=== PATIENT | female | born 1950 | race Caucasian/White ===

== ENCOUNTER 2020-05-30 15:57 | Outpatient (REF) | payer MEDICARE, SELFPAY ==
--- NOTE | 2020-05-30 | XR_ITS ---
EXAMINATION: XR FOOT, RIGHT CLINICAL INFORMATION: Pain in right foot COMPARISON: None TECHNIQUE: AP, lateral, and oblique views of the right foot. FINDINGS: No fracture or dislocation seen. Small plantar calcaneal osteophyte is present. 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 There is mild irregularity of the medial first metatarsal head with overlying soft tissue prominence but no hallux valgus is seen. Normal tarsal metatarsal alignment. XR/XR foot RT 2V IMPRESSION: No acute osseous abnormality. Small plantar calcaneal osteophyte is present. Degenerative changes as described above.
== END 2020-05-30 15:58 | disposition home or self-care (01) ==
LOC: HO.XRAY 15:57
PROVIDERS: Visit Provider Pediatrics
DX: M79.671 Pain in right foot (principal)
CPT/HCPCS: 73620

== ENCOUNTER 2020-08-21 11:19 | Outpatient (REF) | payer MEDICARE, SELFPAY ==
--- NOTE | 2020-08-21 11:22 | CT_ITS ---
EXAMINATION: CT HEAD WITHOUT CONTRAST CLINICAL INFORMATION: Migraine. COMPARISON: None TECHNIQUE: Contiguous axial imaging was performed from the skull base to vertex without intravenous administration of contrast. This CT examination was performed using dose optimization techniques as appropriate, variously including the following: *Automated exposure control *Adjustment of mA and/or kV according to patient size (this includes techniques or standardized protocols for targeted exams where dose is matched to indication/reason for exam; i.e. extremities or head) *Use of iterative reconstruction technique DLP: 683 mGy-cm FINDINGS: There is no evidence of acute intracranial hemorrhage or territorial infarction. No abnormal mass effect or midline shift is seen. Zayas to white matter differentiation is well preserved. No extra-axial fluid collections are identified. The ventricles are normal in size. There is no abnormal attenuation within the brain parenchyma. The osseous structures and soft tissues are normal. The mastoid air cells and visualized portions of the paranasal sinuses are well aerated. CT/CT head/brain wo con IMPRESSION: No acute intracranial process seen.
== END 2020-08-21 11:20 | disposition home or self-care (01) ==
LOC: HO.CT 11:19
PROVIDERS: PCP Pediatrics; Visit Provider Pediatrics
DX: G43.011 Migraine without aura, intractable, with status migrainosus (principal)
CPT/HCPCS: 70450

== ENCOUNTER 2020-10-06 11:33 | Outpatient (REF) | payer MEDICARE, SELFPAY ==
--- NOTE | ~2020-10-06 | XR_ITS ---
EXAMINATION: XR CERVICAL SPINE CLINICAL INFORMATION: Neck pain. COMPARISON: None TECHNIQUE: Six views of the cervical spine, inclusive of flexion and extension views, were obtained. FINDINGS: There is normal cervical lordosis. The vertebral heights and alignment are normal. There is loss of C5-C6 and C6-C7 disc heights with ventral spondylosis. On oblique views, the neural foramina are mildly narrowed bilaterally at C4-C5 and C5-C6 disc levels slightly greater on the left side. There is moderate facet joint arthropathy on the right at C3-C4 and left C4-C5 disc levels. No lytic or sclerotic process seen. There is no visible acute fracture, dislocation or subluxation seen. XR/XR cervical spine min 6V IMPRESSION: Degenerative disc changes C5-C6 and C6-C7 disc levels with ventral spondylosis. Narrowing of neural foramina, as described above. There is no acute fracture or lytic process.
== END 2020-10-06 11:34 | disposition home or self-care (01) ==
LOC: HO.XRAY 11:33
PROVIDERS: PCP Pediatrics; Visit Provider Pediatrics
DX: M54.2 Cervicalgia (principal)
CPT/HCPCS: 72052

== ENCOUNTER 2020-12-01 07:59 | Outpatient (REF) | payer MEDICARE, SELFPAY ==
--- NOTE | ~2020-12-01 | MM_ITS ---
EXAMINATION: MM SCREENING DIGITAL BREAST TOMOSYNTHESIS, BILATERAL CLINICAL INFORMATION: Screening. Asymptomatic. The lifetime risk of breast cancer based on the Tyrer-Cuzick Model is 4%. COMPARISON: Mammography: 11/23/2018, 08/26/2014, 08/20/2013, 05/18/2012 TECHNIQUE: Digital mammography is performed in craniocaudal and mediolateral oblique views along with computer-aided detection (CAD). Digital breast tomosynthesis is performed in implant-displaced craniocaudal and implant-displaced mediolateral oblique views along with computer-aided detection (CAD). Synthesized 2D images are generated from the tomosynthesis. FINDINGS: There are scattered areas of fibroglandular density (ACR BI-RADS breast composition Category b). There are bilateral implants. The implant contours are smooth. There are benign coarse capsular calcifications greater on the left. The right breast shows no mass or architectural abnormality. Neither breast shows architectural abnormality or abnormal calcifications. The axilla and skin contours are unremarkable. The left implant displaced CC view has questionable asymmetric density inner quadrant 4 cm from nipple. This may be related to summation artifact. Patient will be recalled for additional imaging. MM/MM tomosynthesis screen imp BI IMPRESSION: 1. Left: Asymmetric density medial side on CC implant displaced view, possibly summation artifact or incompletely compressed glandular. 2. Right: No mammographic evidence of malignancy. ASSESSMENT: BI-RADS 0: Incomplete - Need Additional Imaging Evaluation RECOMMENDATION: 1. Additional views of the left breast (implant displaced spot CC; implant displaced rolled CC). 2. Targeted ultrasound if warranted after review of the additional views. 3. Radiology department staff will contact the patient for additional imaging. This patient's information was entered into a reminder system with a target due date for their next mammogram.
--- NOTE | ~2020-12-01 | MM_ITS ---
EXAMINATION: BONE DENSITOMETRY CLINICAL INDICATION: Other specified disorders of bone density and structure. COMPARISON: Previous BD dated 11/09/2018 and baseline BD dated 09/25/2007. TECHNIQUE: Using a [employer] DXA System (software version: 13.1) manufactured by [employer], dual-energy x-ray absorptiometry was performed of the lumbar spine and left hip. The images are of good technical quality. Summary results are attached. FINDINGS: AP SPINE L1-L4: Current: BMD 1.078 g/cm2, Z-score 0.9, T-score -0.8, normal, 9.1% increase from previous, 4.2% increase from baseline (<5% change is not significant). Prior: BMD 0.988 g/cm2. Baseline: BMD 1.035 g/cm2. LEFT FEMUR, NECK: Current: BMD 0.803 g/cm2, Z-score 0.0, T-score -1.7, osteopenia. Prior: BMD 0.695 g/cm2. Baseline: BMD 0.741 g/cm2. LEFT FEMUR, TOTAL: Current: BMD 0.804 g/cm2, Z-score -0.2, T-score -1.6, osteopenia, 12.8% increase from previous, 4.7% increase from baseline (<5% change is not significant). Prior: BMD 0.713 g/cm2. Baseline: BMD 0.768 g/cm2. IDENTIFIED RISK FACTORS: Osteoporosis, height loss, menopause, hysterectomy, bilateral oophorectomy. HISTORY OF FRACTURE: None listed. MEDICATIONS: Calcium supplements or multivitamin, vitamin D. MM/XR DEXA axial skeleton IMPRESSION: 1. DIAGNOSIS: Osteopenia based on the lowest T-score value of -1.7 in the femoral neck applying World Health Organization criteria. 2. 10-YEAR FRACTURE RISK PREDICTION, FRAX: Major osteoporotic fracture (clinical spine, forearm, hip or shoulder) 10.1%. Hip fracture 1.5%. 3. Treatment Recommendations: NOF guidelines recommend consideration for treatment in postmenopausal women and men age 50 and older presenting with the following: -A hip or vertebral (clinical or morphometric) fracture. -T-score less than or equal to -2.5 at the femoral neck or spine after appropriate evaluation to exclude secondary causes. -Low bone mass at the hip or spine and a 10-year fracture probability by FRAX of greater than or equal to 3% for hip fracture or greater than or equal to 20% for major osteoporotic fracture based on the [place] adapted WHO algorithm. 4. Other Recommendations: All treatment decisions require clinical judgment and consideration of individual patient factors, including patient preferences, comorbidities, previous drug use, risk factors not captured in the FRAX model (e.g. frailty, falls, vitamin D deficiency, increased bone turnover, interval significant decline in bone density) and possible under or overestimation of fracture risk by FRAX. Additional medical evaluation for secondary cause of low bone mineral density may be appropriate. FUTURE SCAN RECOMMENDATION: People with diagnosed cases of osteoporosis or at high risk for fracture should have regular bone mineral density tests. For patients eligible for Medicare, routine testing is allowed once every 2 years. The testing frequency can be increased to one year for patients who have rapidly progressing disease, those who are receiving or discontinuing medical therapy to restore bone mass, or have additional risk factors.
== END 2020-12-01 08:00 | disposition home or self-care (01) ==
LOC: HO.MAMMO 07:59
PROVIDERS: Visit Provider Pediatrics
DX: Z12.31 Encounter for screening mammogram for malignant neoplasm of breast (principal); Z13.820 Encounter for screening for osteoporosis; M85.80 Other specified disorders of bone density and structure, unspecified site; Z78.0 Asymptomatic menopausal state; Z79.899 Other long term (current) drug therapy; Z98.890 Other specified postprocedural states
CPT/HCPCS: 77063; 77067; 77080

== ENCOUNTER 2020-12-08 08:13 | Outpatient (REF) | payer MEDICARE, SELFPAY ==
--- NOTE | ~2020-12-08 | MM_ITS ---
EXAMINATION: MM DIAGNOSTIC DIGITAL BREAST TOMOSYNTHESIS, LEFT CLINICAL INFORMATION: Recall from screening for asymmetric density medial breast on implant displaced CC view, possibly summation artifact. COMPARISON: Mammography: 12/01/2020, 11/23/2018, 08/26/2014 TECHNIQUE: Digital breast tomosynthesis is performed. 2D images are generated from the tomosynthesis. The following views are obtained: Implant displaced Rolled CC x2, implant displaced spot CC x2. FINDINGS: There are scattered areas of fibroglandular density (ACR BI-RADS breast composition Category b). The additional view shows normal fibroglandular densities similar to prior studies. There is no developing density or mass or architectural abnormality. Results are discussed with the patient at time of visit. MM/MM tomosynthesis added views L IMPRESSION: Additional views are unremarkable. No significant changes from prior studies. ASSESSMENT: BI-RADS 2: Benign RECOMMENDATION: Routine annual mammography screening. This patient's information was entered into a reminder system with a target due date for their next mammogram.
== END 2020-12-08 08:14 | disposition home or self-care (01) ==
LOC: HO.MAMMO 08:13
PROVIDERS: Visit Provider Pediatrics
DX: R92.2 Inconclusive mammogram (principal)
CPT/HCPCS: 77061; 77065

== ENCOUNTER 2021-06-04 08:55 | Outpatient (REF) | payer MEDICARE, SELFPAY ==
[2021-06-04 11:44] LABS: MANUAL DIFF FLAG NO
[2021-06-04 11:47] LABS: Basophils Absolute Auto 0.1 X10*3/uL (0.0-0.2); Basophils Percent Auto 0.9 % (0-2); Eosinophils Absolute Auto 0.1 X10*3/uL (0.0-0.4); Eosinophils Percent Auto 1.6 % (0-4); Hematocrit 41.6 % (37.0-47.0); Hemoglobin 13.6 g/dl (12.0-16.0); Imm Gran Abs Auto 0.01 X10*3/uL (0.00-0.03); Imm Gran Pct Auto 0.2 % (0.0-0.4); Lymphocytes Absolute Auto 1.7 X10*3/uL (1.2-4.9); Lymphocytes Percent Auto 31.7 % (20-40); Mean Corpuscular HGB Conc 32.7 g/dl (31.0-35.0); Mean Corpuscular Hemoglobin 31.2 pg (27.0-33.0); Mean Corpuscular Volume 95.4 fL (80.0-98.0); Mean Platelet Volume 10.7 fL (9.4-12.3); Monocytes Absolute Auto 0.4 X10*3/uL (0.1-1.2); Monocytes Percent Auto 7.8 % (2-11); Neutrophils Absolute Auto 3.2 x10*3/uL (2.0-8.3); Neutrophils Percent Auto 57.8 % (45-73); Platelet Count 253 X10*3/uL (160-400); Red Blood Count 4.36 X10*6/uL (4.20-5.50); Red Cell Distribution Width 12.1 % (11.0-16.0); White Blood Count 5.5 X10*3/uL (4.8-10.8)
[2021-06-04 12:37] LABS: Alanine Aminotransferase 27 U/L (0-31); Albumin Level 4.2 g/dL (3.5-5.0); Alkaline Phosphatase 60 U/L (39-117); Anion Gap 11 (12-20); Aspartate Amino Transferase 20 U/L (5-31); Bilirubin Total 0.5 mg/dL (0.0-1.0); Blood Urea Nitrogen 20 mg/dL (9-16); Carbon Dioxide 26 mmol/L (22-29); Chloride 104 mmol/L (96-108); Cholesterol 192 mg/dL; Estimated Glomerular Filt Rate > 60; Glucose Random 93 mg/dL (60-115); HDL Cholesterol 76 mg/dL; LDL Cholesterol Calculated 93 mg/dl; Potassium 4.4 mmol/L (3.3-5.1); Sodium 137 mmol/L (135-145); Total Protein 6.6 g/dL (6.5-8.0); Triglycerides 116 mg/dL
[2021-06-04 12:39] LABS: TSH reflex Free T4 1.92 uIU/mL (0.32-4.0)
[2021-06-04 12:46] LABS: Vitamin B12 672 pg/mL (200-900)
[2021-06-04 13:16] LABS: Vitamin D 25-OH Total 53.8 ng/mL (>30)
== END 2021-06-04 08:56 | disposition home or self-care (01) ==
LOC: HO.HMGCLDS 08:55
PROVIDERS: PCP Pediatrics; Visit Provider Pediatrics
DX: E78.2 Mixed hyperlipidemia (principal); M85.80 Other specified disorders of bone density and structure, unspecified site
CPT/HCPCS: 36415; 80053; 80061; 82306; 82550; 82607; 84443; 85025

== ENCOUNTER 2021-10-01 15:09 | Outpatient (REF) | payer MEDICARE, SELFPAY ==
--- NOTE | ~2021-10-01 | US_ITS ---
EXAMINATION: US RETROPERITONEAL LIMITED (RENAL ONLY) CLINICAL INFORMATION: Unspecified abdominal pain. COMPARISON: None TECHNIQUE: Real-time imaging of the kidneys. FINDINGS: RIGHT KIDNEY: 10.4 x 4.1 x 5.1 cm (SAG x AP x TRV). The kidney is normal in size, contour, and echogenicity. Renal cortical thickness is normal. No calculi or focal parenchymal lesions. No hydronephrosis. LEFT KIDNEY: 10.1 x 5.1 x 4.2 cm (SAG x AP x TRV). The kidney is normal in size, contour, and echogenicity. Renal cortical thickness is normal. There is question of a 2.3 x 1.6 x 1.7 cm cyst in the upper pole. No renal calculi or hydronephrosis. US/US renal BI IMPRESSION: Question left renal cyst. Otherwise unremarkable exam.
== END 2021-10-01 15:10 | disposition home or self-care (01) ==
LOC: HO.US 15:09
PROVIDERS: Visit Provider Internal Medicine
DX: R10.9 Unspecified abdominal pain (principal)
CPT/HCPCS: 76775

== ENCOUNTER 2022-09-09 12:28 | Outpatient (REF) | payer OTHER, SELFPAY ==
[2022-09-09 13:43] LABS: MANUAL DIFF FLAG NO
[2022-09-09 13:46] LABS: Basophils Absolute Auto 0.1 X10*3/uL (0.0-0.2); Basophils Percent Auto 0.7 % (0-2); Eosinophils Absolute Auto 0.1 X10*3/uL (0.0-0.4); Eosinophils Percent Auto 1.1 % (0-4); Hematocrit 41.3 % (37.0-47.0); Hemoglobin 13.8 g/dl (12.0-16.0); Imm Gran Abs Auto 0.02 X10*3/uL (0.00-0.03); Imm Gran Pct Auto 0.3 % (0.0-0.4); Lymphocytes Absolute Auto 1.8 X10*3/uL (1.2-4.9); Lymphocytes Percent Auto 23.9 % (20-40); Mean Corpuscular HGB Conc 33.4 g/dl (31.0-35.0); Mean Corpuscular Hemoglobin 31.2 pg (27.0-33.0); Mean Corpuscular Volume 93.2 fL (80.0-98.0); Mean Platelet Volume 10.6 fL (9.4-12.3); Monocytes Absolute Auto 0.6 X10*3/uL (0.1-1.2); Monocytes Percent Auto 7.4 % (2-11); Neutrophils Percent Auto 66.6 % (45-73); Platelet Count 276 X10*3/uL (160-400); Red Blood Count 4.43 X10*6/uL (4.20-5.50); Red Cell Distribution Width 12.1 % (11.0-16.0); White Blood Count 7.5 X10*3/uL (4.8-10.8)
[2022-09-09 14:16] LABS: TSH reflex Free T4 1.59 uIU/mL (0.32-4.0)
== END 2022-09-09 12:29 | disposition home or self-care (01) ==
LOC: HO.HMGCLDS 12:28
PROVIDERS: PCP Pediatrics; Visit Provider Pediatrics
DX: R58 Hemorrhage, not elsewhere classified (principal)
CPT/HCPCS: 36415; 84443; 85025

== ENCOUNTER 2022-09-10 13:51 | Outpatient (REF) | payer OTHER, SELFPAY ==
[2022-09-17 13:54] LABS: Factor VIII Activity Clotting 81 % normal (50-180); PTT, Activated 27 sec (23-32); Ristocetin Cofactor 55 % normal (42-200)
== END 2022-09-10 13:52 | disposition home or self-care (01) ==
LOC: HO.LAB 13:51
PROVIDERS: PCP Pediatrics; Visit Provider Pediatrics
DX: R58 Hemorrhage, not elsewhere classified (principal)
CPT/HCPCS: 36415; 85240; 85245; 85246; 85247; 85730

== ENCOUNTER 2023-01-10 09:01 | Outpatient (REF) | payer OTHER, SELFPAY ==
--- NOTE | ~2023-01-10 | MM_ITS ---
EXAMINATION: BONE DENSITOMETRY CLINICAL INDICATION: Osteoporosis. COMPARISON: Previous BD dated 12/01/2020 and baseline BD dated 09/25/2007. TECHNIQUE: Using a [employer] DXA System (software version: 13.1) manufactured by [employer], dual-energy x-ray absorptiometry was performed of the lumbar spine and left hip. The images are of good technical quality. Summary results are attached. FINDINGS: AP SPINE L1-L4: Current: BMD 1.022 g/cm2, Z-score 0.5, T-score -1.3, osteopenia, 5.2% decrease from previous, 1.3% decrease from baseline (<5% change is not significant). Prior: BMD 1.078 g/cm2. Baseline: BMD 1.035 g/cm2. LEFT FEMUR, NECK: Current: BMD 0.743 g/cm2, Z-score -0.4, T-score -2.1, osteopenia. Prior: BMD 0.803 g/cm2. Baseline: BMD 0.741 g/cm2. LEFT FEMUR, TOTAL: Current: BMD 0.747 g/cm2, Z-score -0.5, T-score -2.1, osteopenia, 7.1% decrease from previous, 2.7% decrease from baseline (<5% change is not significant). Prior: BMD 0.804 g/cm2. Baseline: BMD 0.768 g/cm2. IDENTIFIED RISK FACTORS: Menopause, height loss, hysterectomy, bilateral oophorectomy, osteoporosis. HISTORY OF FRACTURE: None listed. MEDICATIONS: Calcium, vitamin D, bisphosphonate. MM/XR DEXA axial skeleton IMPRESSION: 1. DIAGNOSIS: Osteopenia based on the lowest T-score value of -2.1 in the femur neck and total femur applying World Health Organization criteria. 2. 10-YEAR FRACTURE RISK PREDICTION, FRAX: Not performed in this patient on estrogen or bone building treatments. 3. Treatment Recommendations: NOF guidelines recommend consideration for treatment in postmenopausal women and men age 50 and older presenting with the following: -A hip or vertebral (clinical or morphometric) fracture. -T-score less than or equal to -2.5 at the femoral neck or spine after appropriate evaluation to exclude secondary causes. -Low bone mass at the hip or spine and a 10-year fracture probability by FRAX of greater than or equal to 3% for hip fracture or greater than or equal to 20% for major osteoporotic fracture based on the [place] adapted WHO algorithm. 4. Other Recommendations: All treatment decisions require clinical judgment and consideration of individual patient factors, including patient preferences, comorbidities, previous drug use, risk factors not captured in the FRAX model (e.g. frailty, falls, vitamin D deficiency, increased bone turnover, interval significant decline in bone density) and possible under or overestimation of fracture risk by FRAX. Additional medical evaluation for secondary cause of low bone mineral density may be appropriate. FUTURE SCAN RECOMMENDATION: People with diagnosed cases of osteoporosis or at high risk for fracture should have regular bone mineral density tests. For patients eligible for Medicare, routine testing is allowed once every 2 years. The testing frequency can be increased to one year for patients who have rapidly progressing disease, those who are receiving or discontinuing medical therapy to restore bone mass, or have additional risk factors.
--- NOTE | ~2023-01-10 | MM_ITS ---
EXAMINATION: MM SCREENING DIGITAL BREAST TOMOSYNTHESIS, BILATERAL CLINICAL INFORMATION: Screening. Asymptomatic. The lifetime risk of breast cancer based on the Tyrer-Cuzick Model is 5%. COMPARISON: Mammography: 12/08/2020, 12/01/2020, 11/23/2018 TECHNIQUE: Digital mammography is performed in craniocaudal and mediolateral oblique views along with computer-aided detection (CAD). Digital breast tomosynthesis is performed in implant-displaced craniocaudal and implant-displaced mediolateral oblique views along with computer-aided detection (CAD). Synthesized 2D images are generated from the tomosynthesis. FINDINGS: There are scattered areas of fibroglandular density (ACR BI-RADS breast composition Category b). There are bilateral implants. The contours are smooth and similar to prior studies. Breast parenchymal pattern is similar to prior exams and there is no developing density or architectural abnormality. There are no significant masses, abnormal calcifications, or other abnormalities. There are incidental coarse benign capsular calcifications overlying the implants, greater on left. The axilla and skin contours are unremarkable. No significant changes. MM/MM tomosynthesis screen imp BI IMPRESSION: No mammographic evidence of malignancy. ASSESSMENT: BI-RADS 2: Benign RECOMMENDATION: Routine annual mammography screening. This patient's information was entered into a reminder system with a target due date for their next mammogram.
== END 2023-01-10 09:02 | disposition home or self-care (01) ==
LOC: HO.MAMMO 09:01
PROVIDERS: PCP Pediatrics; Visit Provider Family Medicine
DX: Z12.31 Encounter for screening mammogram for malignant neoplasm of breast (principal); Z13.820 Encounter for screening for osteoporosis; Z78.0 Asymptomatic menopausal state; M81.0 Age-related osteoporosis without current pathological fracture
CPT/HCPCS: 77063; 77067; 77080

== ENCOUNTER 2023-03-13 14:44 | Outpatient (REF) | payer OTHER, SELFPAY ==
--- NOTE | ~2023-03-13 | US_ITS ---
EXAMINATION: US VENOUS ULTRASOUND WITH DOPPLER LOWER EXTREMITY, LEFT CLINICAL INFORMATION: Left leg edema. COMPARISON: None available. TECHNIQUE: Ultrasound of the deep veins is performed from the hip to the calf with compression sonography and color and pulse Doppler assessment. Spectral analysis with color-flow imaging is performed. FINDINGS: There is normal venous compression and respiratory variation and augmented flow. The visualized common femoral vein, superficial femoral vein, profunda femoral vein, popliteal vein, and the trifurcation region shows no evidence of deep venous thrombosis. There is no significant popliteal fossa cyst. If the patient's symptoms persist, followup ultrasound in 5 days 7 days might be of value to exclude proximal propagation from a non-visualized calf vein. US/US venous duplex LE IMPRESSION: No DVT demonstrated in the left lower extremity.
== END 2023-03-13 14:45 | disposition home or self-care (01) ==
LOC: HO.US 14:44
PROVIDERS: PCP Pediatrics; Visit Provider Internal Medicine
DX: R60.0 Localized edema (principal)
CPT/HCPCS: 93971

== ENCOUNTER 2023-04-26 10:16 | Outpatient (REF) | payer OTHER, SELFPAY | END 2023-04-26 10:17 | disposition home or self-care (01) | LOC: HO.MRI 10:16 | PROVIDERS: PCP Pediatrics; Visit Provider Pediatrics | DX: M25.562 Pain in left knee (principal) | CPT/HCPCS: 73721 ==

== ENCOUNTER 2023-11-25 12:33 | Outpatient (REF) | payer OTHER, SELFPAY ==
[2023-11-25 14:50] LABS: Leukocytes Stool Qualitative NEGATIVE (NEGATIVE)
== END 2023-11-25 12:34 | disposition home or self-care (01) ==
LOC: HO.LNP 12:33
PROVIDERS: Visit Provider Internal Medicine Gastroenterology
DX: R19.8 Other specified symptoms and signs involving the digestive system and abdomen (principal)
CPT/HCPCS: 87177; 87209; 87507; 89055

== ENCOUNTER 2023-11-28 09:54 | Outpatient (REF) | payer OTHER, SELFPAY ==
[2023-11-28 11:37] LABS: Adenovirus F 40/41 Not Detected (Not Detect.); Astrovirus Not Detected (Not Detect.); Campylobacter Not Detected (Not Detect.); Cryptosporidium Not Detected (Not Detect.); Cyclospora cayetanensis Not Detected (Not Detect.); E. coli EAEC Not Detected (Not Detect.); E. coli EPEC Not Detected (Not Detect.); E. coli ETEC Not Detected (Not Detect.); E. coli STEC Not Detected (Not Detect.); Entamoeba histolytica Not Detected (Not Detect.); Giardia lamblia Not Detected (Not Detect.); Norovirus GI/GII Not Detected (Not Detect.); Plesiomonas shigelloides Not Detected (Not Detect.); Rotavirus A Not Detected (Not Detect.); Salmonella Not Detected (Not Detect.); Sapovirus Not Detected (Not Detect.); Shigella sp./EIEC Not Detected (Not Detect.); Vibrio Not Detected (Not Detect.); Vibrio Cholerae Not Detected (Not Detect.); Yersinia enterocolitica Not Detected (Not Detect.)
== END 2023-11-28 09:55 | disposition home or self-care (01) ==
LOC: HO.LNP 09:54
PROVIDERS: Visit Provider Internal Medicine Gastroenterology
DX: R19.8 Other specified symptoms and signs involving the digestive system and abdomen (principal)
CPT/HCPCS: 87507

== ENCOUNTER 2023-12-19 08:47 | Day surgery (SDC) | payer MEDICARE, SELFPAY ==
[2023-12-17 14:45] VITALS: BMI 22.1
--- NOTE | 2023-12-18 09:20 | HO.ANESPROP2 ---
Documented by User: Elida Recinos NP 12/18/23 09:20 HPI - Anesthesia Eval Consult details Narrative: 73yo F for Colonoscopy PMFSH Past Medical History Medical History Hyperlipidemia Migraines Environmental allergies Seasonal allergies Asthma Surgical History Surgical History History of total left knee replacement Hx of tubal ligation Hx of breast augmentation History of pubovaginal sling Hx of hysterectomy Social History Social History Patient Tobacco Use Status: Never used Tobacco Use of substances other than those prescribed or required for medical reasons: No Are you DNR?: No Advance Directives: No Advance Directives Information Provided: Yes Meds Allergies Allergy/AdvReac Type Severity Reaction Status Date / Time ENVIROMENTAL Allergy Intermediate HAYFEVER Uncoded 04/06/20 16:11 Home Medications ?Medication ?Instructions ?Recorded ?Confirmed ?Last Taken ?Type alendronate 70 mg tablet 10 mg PO DAILY 12/17/23 12/19/23 12/18/23 History ascorbic acid (vitamin C) 500 mg 500 mg PO DAILY 12/17/23 12/19/23 12/18/23 History capsule,extended release (Vitamin C) aspirin 81 mg tablet,delayed 81 mg PO DAILY 12/17/23 12/19/23 12/16/23 History release biotin 10 mg tablet 10 mg PO DAILY 12/17/23 12/19/23 12/18/23 History calcium 12/17/23 Unknown History cholecalciferol (vitamin D3) 10 10 mcg PO DAILY 12/17/23 12/17/23 Unknown History mcg (400 unit) capsule (Vitamin D3) diazepam 2 mg tablet 2 mg PO TID 12/17/23 12/17/23 Unknown History levocetirizine 5 mg tablet 5 mg PO QPM 12/17/23 12/19/23 12/18/23 History loratadine 10 mg capsule 10 mg PO DAILY 12/17/23 12/19/23 12/18/23 History magnesium 200 mg tablet 200 mg PO DAILY 12/17/23 12/19/23 12/18/23 History multivitamin 1 tab PO DAILY 12/17/23 12/19/23 12/18/23 History niacin 100 mg tablet 100 mg PO DAILY 12/17/23 12/19/2312/17/24 History rosuvastatin 20 mg tablet 20 mg PO DAILY 12/17/23 12/19/23 12/18/23 History sumatriptan succinate 50 mg tablet mg PO 12/17/23 Unknown History turmeric 400 mg capsule 500 mg PO DAILY 12/17/23 12/19/23 12/12/23 History vitamin E 12/17/23 Unknown History zinc 10 mg tablet 10 mg PO DAILY 12/17/23 12/17/23 Unknown History Fish Oil 1 cap PO DAILY 12/19/23 12/19/23 12/12/23 History ferrous sulfate 1 tab PO DAILY 12/19/23 12/19/23 12/12/23 History Exam Height,Weight and Vital Signs: Height 5 ft 4 in Weight 58.513 kg Assessment and Plan Assessment Anesthesia Assessment: Chart Reviewed Documented by User: Hayley Arias MD 12/19/23 09:38 PMFSH Past Medical History Medical History Hyperlipidemia Migraines Environmental allergies Seasonal allergies Asthma Family History Family history of problems with anesthesia: No Surgical History Surgical History History of total left knee replacement Hx of tubal ligation Hx of breast augmentation History of pubovaginal sling Hx of hysterectomy History of Problems with Anesthesia: No Social History Social History Patient Tobacco Use Status: Never used Tobacco Use of substances other than those prescribed or required for medical reasons: No Are you DNR?: No Advance Directives: No Advance Directives Information Provided: Yes Meds Allergies Allergy/AdvReac Type Severity Reaction Status Date / Time ENVIROMENTAL Allergy Intermediate HAYFEVER Uncoded 04/06/20 16:11 Home Medications ?Medication ?Instructions ?Recorded ?Confirmed ?Last Taken ?Type alendronate 70 mg tablet 10 mg PO DAILY 12/17/23 12/19/23 12/18/23 History ascorbic acid (vitamin C) 500 mg 500 mg PO DAILY 12/17/23 12/19/23 12/18/23 History capsule,extended release (Vitamin C) aspirin 81 mg tablet,delayed 81 mg PO DAILY 12/17/23 12/19/23 12/16/23 History release biotin 10 mg tablet 10 mg PO DAILY 12/17/23 12/19/23 12/18/23 History calcium 12/17/23 Unknown History cholecalciferol (vitamin D3) 10 10 mcg PO DAILY 12/17/23 12/17/23 Unknown History mcg (400 unit) capsule (Vitamin D3) diazepam 2 mg tablet 2 mg PO TID 12/17/23 12/17/23 Unknown History levocetirizine 5 mg tablet 5 mg PO QPM 12/17/23 12/19/23 12/18/23 History loratadine 10 mg capsule 10 mg PO DAILY 12/17/23 12/19/23 12/18/23 History magnesium 200 mg tablet 200 mg PO DAILY 12/17/23 12/19/23 12/18/23 History multivitamin 1 tab PO DAILY 12/17/23 12/19/23 12/18/23 History niacin 100 mg tablet 100 mg PO DAILY 12/17/23 12/19/23 12/18/23 History rosuvastatin 20 mg tablet 20 mg PO DAILY 12/17/23 12/19/23 12/18/23 History sumatriptan succinate 50 mg tablet mg PO 12/17/23 Unknown History turmeric 400 mg capsule 500 mg PO DAILY 12/17/23 12/19/23 12/12/23 History vitamin E 12/17/23 Unknown History zinc 10 mg tablet 10 mg PO DAILY 12/17/23 12/17/23 Unknown History Fish Oil 1 cap PO DAILY 12/19/23 12/19/23 12/12/23 History ferrous sulfate 1 tab PO DAILY 12/19/23 12/19/23 12/12/23 History Exam Airway Mallampati Class: II TM Dist: >3cm Neck ROM: Full Assessment and Plan Assessment Anesthesia Assessment: Anesthesia Plan Discussed Final Anesthetic Review Family History of Problems with Anesthesia: No History of Problems with Anesthesia: No NPO: Yes ASA Class: II Final Preanesthetic Review: No Changes in Pt Med Stat, Meds/Allgs Chart Reviewed, Consent Obtained/Reviewed and Anes Risks/Benef Reviewed Patient Risk: Low Procedure Risk: Low Anesthetic Plan Anesthetic Plan: TIVA Disposition: Standard PACU
[2023-12-19 09:18] VITALS: BMI 21.3
[2023-12-19 09:34] VITALS: BP 127/65; PULSE 91; RESP 16; TEMP 36.3; O2SAT 99
[2023-12-19] MEDS: Lactated Ringers 1,000 ML 100 ML IVCONT (09:35)
--- NOTE | 2023-12-19 10:50 | P.HPSUR_ITS ---
Pre-Procedural Eval Section A - 24 Hr Update-Section A only Date of Service: 12/19/23 Section B - Complete if H&P > 30 days Chief Complaint: hx malignant neoplasm,screening Details of Present Illness: see H&P no changes Relevant Family History (Specify if Yes): No Relevant Social History: None Present Medications: see Short Stay Collaborative assessment Medical History: No relevant PMH History of Previous Operations: No relevant previous surgery Allergies: Allergies Allergy/AdvReac Type Severity Reaction Status Date / Time ENVIROMENTAL Allergy Intermediate HAYFEVER Uncoded 04/06/20 16:11 Review of Systems Sugical H&P ROS: Negative: Constitution, Cardiovascular, Respiratory, Neurological, Psychiatric, Hem-Onc, Allergic/Immunologic, Gastrointestinal, Genitourinary, Musculoskeletal, Integumentary, Endocrine and Eyes/Ears/Nose/Th roat Exam Surgical H&P Exam: Normal: HEENT, Normal: Heart, Normal: Lungs, Normal: Extremities, Normal: Abdomen, Normal: Skin and Normal: Neurological Plan Diagnosis/Plan: Unchanged I have reviewed the history and physical and performed a pertinent physical examination on my patient. No changes have occurred unless specified. Time Spent With Patient Time: Total time managing care of this patient today ____ minutes.
[2023-12-19 11:31] VITALS: BP 90/52; PULSE 75; RESP 12; TEMP 36.6; O2SAT 98
[2023-12-19 11:43] VITALS: BP 114/63; PULSE 76; RESP 16; TEMP 36.6; O2SAT 98
--- NOTE | 2023-12-19 11:44 | OP_ITS ---
DATE OF SERVICE: 12/19/2023 SURGEON: Dominick Vargas MD INDICATIONS: Change in bowel habits. PREOPERATIVE DIAGNOSIS: POSTOPERATIVE DIAGNOSIS: PROCEDURE PERFORMED: Colonoscopy to the terminal ileum with biopsy. ESTIMATED BLOOD LOSS: COMPLICATIONS: ANESTHESIA: Monitored anesthesia care. ASSISTANTS: SPECIMENS: DESCRIPTION OF PROCEDURE: A history and physical was performed. The risks and benefits of the procedure were explained to the patient and informed consent was obtained. The patient was placed in the left lateral decubitus position. A digital rectal exam was performed and was found to be normal. The Olympus pediatric video colonoscope was introduced into the rectum and advanced to the cecum. The cecum was identified by transillumination, palpation, and identification of ileocecal valve. Examination was performed and the scope was removed. She tolerated the procedure well and was returned to recovery area in stable condition. FINDINGS: The terminal ileum was not examined. The visualized colonic mucosa was normal. In the cecum/right colon, was a less than 5 mm sessile polyp, which was removed with the biopsy forceps. No other polyps were identified. Retroflexed examination showed moderate-sized internal hemorrhoids. The quality of the prep was good. Sigmoid biopsies were obtained to rule out microscopic colitis. IMPRESSION: Colon polyp. RECOMMENDATIONS: 1. Follow up the biopsy results. MD IGNACIO Villanueva/CORY / [id number] MTDD
== END 2023-12-19 12:10 | disposition home or self-care (01) ==
PROVIDERS: PCP Pediatrics; Visit Provider Internal Medicine Gastroenterology
PROC: 0DJD8ZZ Inspection of Lower Intestinal Tract, Via Natural or Artificial Opening Endoscopic (ICD-10-PCS; CPT 45378; principal; 2023-12-19 11:50)
DX: R19.4 Change in bowel habit (principal); K63.5 Polyp of colon; K64.8 Other hemorrhoids; Z87.19 Personal history of other diseases of the digestive system; Z80.0 Family history of malignant neoplasm of digestive organs
CPT/HCPCS: 45380; 88305; J2704

== ENCOUNTER 2024-01-21 08:36 | Outpatient (REF) | payer MEDICARE, SELFPAY ==
--- NOTE | ~2024-01-21 | MM_ITS ---
EXAMINATION: MM SCREENING DIGITAL BREAST TOMOSYNTHESIS, BILATERAL CLINICAL INFORMATION: Screening. Asymptomatic. COMPARISON: Mammography: This study is compared with prior exams dating back to 2019. TECHNIQUE: Digital mammography is performed in craniocaudal and mediolateral oblique views along with computer-aided detection (CAD). Digital breast tomosynthesis is performed in implant-displaced craniocaudal and implant-displaced mediolateral oblique views along with computer-aided detection (CAD). Synthesized 2D images are generated from the tomosynthesis. FINDINGS: There are scattered areas of fibroglandular density (ACR BI-RADS breast composition Category b). There are bilateral, mammographically intact, retroglandular saline breast implants. There is some calcification of the capsule of the left breast implant. This is benign. There are no significant masses, abnormal calcifications, or other abnormalities. MM/MM tomosynthesis screen imp BI IMPRESSION: There are no significant changes from prior study. ASSESSMENT: BI-RADS BI-RADS 2 - Benign Findings RECOMMENDATION: Routine annual mammography screening. 1 year F/U This patient's information was entered into a reminder system with a target due date for their next mammogram.
== END 2024-01-21 08:37 | disposition home or self-care (01) ==
LOC: HO.MAMMO 08:36
PROVIDERS: PCP Family Medicine; Visit Provider Family Medicine
DX: Z12.31 Encounter for screening mammogram for malignant neoplasm of breast (principal)
CPT/HCPCS: 77063; 77067

== ENCOUNTER → 2024-01-21 08:45 | Outpatient (BNV) | payer MEDICARE, SELFPAY | PROVIDERS: PCP Family Medicine; Visit Provider Radiology Diagnostic Radiology | DX: Z12.31 Encounter for screening mammogram for malignant neoplasm of breast (principal) | CPT/HCPCS: 77063; 77067 ==

== ENCOUNTER 2024-08-19 10:16 | Outpatient (REF) | payer MEDICARE, SELFPAY ==
--- OUTSIDE RECORDS SUMMARY | 2024-08-19 13:40 | XMS_ITS | Encounter Summary ---
Author Organization [employer] Address [address] [facility] 7[address] [place] [address] Care Team Providers Care Mining Detail Draftsperson Name Role Phone Ayala Capps MD Primary Care Provider [phone] Encounter Details Date Type Department Care Team ([facility] st Contact Info) Description 02/06/2023 Orders Only [facility] CHC MED & PEDS [address] [facility] [place] [address] Ayala Capps MD [address] [place], [place] [id number] Social History Tobacco Use Types Packs/Day Years Used Date Smoking Tobacco: Never Smokeless Tobacco: Never Comments Unknown Sex and Gender Information Value Date Recorded Sex Assigned at Female 05/20/2022 10:17 AM EDT Legal Sex Female 10:17 AM EDT Gender Identity Choose not to disclose 10:17 AM EDT Sexual Orientation Straight 09/09/2022 4: 32 PM EST documented as of this encounter Plan of Treatment Not on file documented as of this encounter Visit Diagnoses Not on filedocumented in this encounter Care Teams Mining Detail Draftsperson Relationship Specialty Start Date End Date Ayala Capps MD [address] [facility] [place] [address] PCP - General Family Medicine 07/21/18 documented as of this encounter
--- OUTSIDE RECORDS SUMMARY | 2024-08-19 13:40 | XMS_ITS | Encounter Summary ---
Author Organization [employer] Address [address] [facility] 7t [place] [address] Care Team Providers Care Manager Zone Name Role Phone Ayala Capps MD Primary Care Provider [phone] Reason for Visit * Reason Comments Med Change Request Encounter Details Date Type Department Care Team ([facility] Contact Info) Description 02/20/2023 Refill [facility] CHC MED & PEDS [address] [place] [address] Cecilia Tolbert MD [address] [place] [address] Social History Tobacco Use Types Packs/Day Years Used Date Smoking Tobacco: Never Smokeless Tobacco: Never Comments Unknown Sex and Gender Information Value Date Recorded Sex Assigned at Female 05/20/2022 10:17 AM EDT Legal Sex Female 10:17 AM EDT Gender Identity Choose not to disclose 10:17 AM EDT Sexual Orientation Straight 09/09/2022 4: 32 PM EST documented as of this encounter Miscellaneous Notes * Telephone Encounter - Cecilia Tolbert MD - 02/20/2023 4:49 PM EDT Alternative sent documented in this encounter Plan of Treatment Not on file documented as of this encounter Visit Diagnoses Not on filedocumented in this encounter Care Teams Manager Zone Relationship Specialty Start Date End Date Ayala Capps MD [address] [place] [address] PCP - General Family Medicine 07/21/18 documented as of this encounter
--- OUTSIDE RECORDS SUMMARY | 2024-08-19 13:40 | XMS_ITS ---
Author Organization [facility] Address [address] [place] [address] Care Team Providers Care Certification Engineer Name Role Phone Jefry SMITH, Ayala Primary Care Provider Dominick Teixeira Jr [phone] REASON FOR VISIT wanting results Encounters Encounter Location Date Provider Diagnosis [facility] [address] [facility] [address] [place] [phone] 12/02/2023 Dominick Vargas Jr PLAN OF TREATMENT No Information
--- OUTSIDE RECORDS SUMMARY | 2024-08-19 13:40 | XMS_ITS | Patient Health Record ---
Author Organization [facility] Address [address] [place] [address] Care Team Providers Care Supervisor Evaporator Name Role Phone Jefry SMITH, Ayala Primary Care Provider Dominick Teixeira Jr Unavailable [phone] ALLERGIES No Known Allergies RESULTS Component Value Reference Range Notes Leukocytes Stool Qualitative Reviewed date:11/27/2023 09:50:18 AM Interpretation: Performing Lab:[facility], [address] [place] [phone] Notes/Report: Leukocytes Stool Qualitative NEGATIVE NEGATIVE Ova and Parasite Reviewed date:12/03/2023 07:46:32 AM Interpretation: Performing Lab:[address] [phone] Notes/Report: Ova and Parasite SEE NOTE OVA AND PARASITES, CONC AND PERM SMEAR Micro Number: [id number] Test Status: Final Specimen Source: Stool Specimen Quality: Adequate CONCENTRATION 1: No ova or parasites seen TRICHROME 1: No ova or parasites seen Routine Ova and Parasite exam may not detect some parasites that occasionally cause diarrheal illness. Cryptosporidium Antigen and/or Cyclospora and Isospora Exam may be ordered to detect these parasites. One negative sample does not necessarily rule out the presence of a parasitic infection. For additional information, please refer to https://education.Anadys/faq/YLL163 (This link is being provided for informational/ educational purposes only.) THIS TEST WAS PERFORMED AT: [facility] [address] [address] KELSIE SAUCEDO MD GI PANEL Reviewed date:12/03/2023 07:46:24 AM Interpretation: Performing Lab:[facility], [address] [place] [phone] Notes/Report: Campylobacter Not Detected Not Detect. Plesiomonas shigelloides Not Detected Not Detect. Salmonella Not Detected Not Detect. Vibrio Not Detected Not Detect. Vibrio Cholerae Not Detected Not Detect. Yersinia enterocolitica Not Detected Not Detect. E. coli EAEC Not Detected Not Detect. E. coli EPEC Not Detected Not Detect. E. coli ETEC Not Detected Not Detect. E. coli STEC Not Detected Not Detect. E. coli O157 Not applicable Not Detect. E. coli containing the O157 antigen are a subset of Shiga-like toxin-producing E. coli (STEC). Shigella sp./EIEC Not Detected Not Detect. Cryptosporidium Not Detected Not Detect. Cyclospora cayetanensis Not Detected Not Detect. Entamoeba histolytica Not Detected Not Detect. Giardia lamblia Not Detected Not Detect. Adenovirus F 40/41 Not Detected Not Detect. Astrovirus Not Detected Not Detect. Norovirus GI/GII Not Detected Not Detect. Rotavirus A Not Detected Not Detect. Sapovirus Not Detected Not Detect. All results must be correlated with clinical findings. Negative results do not exclude the possibility of gastrointestinal infection and should not be used as the sole basis for diagnosis, treatment, or other management decisions. Virus, bacteria, and parasite nucleic acid may persist in vivo independently of organism viability. Additionally, some organisms may be carried symptomatically. Detection of organism targets does not imply that the corresponding organisms are infectious or are the causative agents for clinical symptoms. There is a risk of false negative values due to the presence of sequence variants in the gene targets of the assay, amplification inhibitors in specimens, or inadequate numbers of organisms for amplification. The identification of several diarrheagenic E. coli pathotypes has historically relied upon phenotypic characteristics. This panel targets genetic determinants characteristic of most pathogenic strains, but may not detect all strains having phenotypic characteristics of a pathotype. The performance of this test has not been established for monitoring treatment of infection with any of the panel organisms. This assay is performed by Multiplexed PCR, utilizing the Access Closure Array. Pathology Reviewed date:12/29/2023 08:36:55 AM Interpretation: Performing Lab:[facility], [address] [place] [phone] Notes/Report: REASON FOR REFERRAL No Information MEDICATIONS Medication SIG (Take, Route, Frequency, Duration) Notes Start Date End Date Status Alendronate Sodium 10 MG 1 tablet 30 min utes before the first food, beverage or medicine of the day with plain water Orally Once a day for 30 day(s) Active Rosuvastatin Calcium 20 MG 1 tablet Oral ly Once a day for 30 day(s) Active Magnesium 200 MG 2 tablets with a juany l Orally Once a day for 30 day(s) Active potassium 1 tab Oral for 14 days Active Multivitamin Adults - Orally Active Biotin 10 MG 1 tablet Orally Once a day for 30 day(s) Active Loratadine 10 MG TAKE 1 TABLET BY HARRISON TH EVERY DAY Oral for 30 Active Calcium 1 tab Oral for 14 days Active Aspir-81 81 MG 1 tablet Orally Once a day Active Zinc 10 MG as directed Orally Active Turmeric 500 MG as directed Orally Active SUMAtriptan & Camphor-Menthol 50 & 4-10 MG & % as directed Combination 11/24/2023 Acti ve Vitamin D 400 UNIT 2 capsules Orally On ce a day for 30 day(s) Active MiraLax (colon prep) 17 GM/SCOOP mixed with Gatorade or Crystal Light Orally begin at 5:00 p.m. the day before the procedure for 1 day 11/24/2023 Active Vitamin E 100 UNIT as directed Orally Active Niacin 100 MG 1 tablet with food O rally Once a day for 30 day(s) Active Vitamin C 500 MG as directed Orally Active IMMUNIZATIONS Vaccine Route Administration Date Status Comme nts Influenza Unknown 06/04/2018 Administered Influenza Unknown 11/24/2023 Refused SOCIAL HISTORY Tobacco Use: Social History Observation Description Date Details (start date - stop date) Former Smoker NA - NA Sex Assigned At : Social History Observation Description Sex Assigned At Unknown Tobacco Use/Smoking Question Answer Notes Patient is a former smoker When did you stop smoking? 22 years ago How long has it been since you last smoked? > 10 years Alcohol Screen Question Answer Notes Did you have a drink contain ing alcohol in the past year? Yes How often did you have a dri nk containing alcohol in the past year? 2 to 4 times a month (2 points) How many drinks did you have on a typical day when you were drinking in the past year? 1 or 2 drinks (0 point) How often did you have 6 or more drinks on one occasion in the past year? Never (0 point) Points 2 Interpretation Negative PROBLEMS Problem Type ICD Code Onset Dates Problem Status W/U Status Risk SNOMED Code Notes Problem Colon cancer screening (Z12.11) Active confirmed 891997204 Problem decal cutter (current) use of aspirin (Z79.82) Active confirmed 296762258301691 Problem FH: colon cancer (Z80.0) Active confirmed 967070383 Problem Change in bowel movement (R19.8) Active confirmed 81183084 VITAL SIGNS Temperature 98.2 degrees Fahrenheit 11/24/2023 Blood pressure diastolic 00 mm Hg 11/24/2023 Height 64 in 11/24/2023 Blood pressure systolic 000 mm Hg 11/24/2023 Weight 129 lbs 11/24/2023 BMI 22.14 kg/m2 11/24/2023 Encounters Encounter Location Date Provider Diagnosis [facility] Outpatient [address] [place] [phone] 12/19/2023 Dominick Vargas Jr Encounter for screening colonoscopy Z12.11 and Colon polyps K63.5 [facility] [address] [place] [phone] 11/24/2023 Dominick Vargas Jr FH: colon cancer Z80.0 ; Change in bowel movement R19.8 and Colon cancer screening Z12.11 [facility] [address] [place] [phone] 11/25/2023 Dominick Vargas Jr GI symptoms R19.8 [facility] [address] [place] [phone] 12/02/2023 Dominick Vargas Jr [facility] [address] [place] [phone] 12/29/2023 Dominick Vargas Jr ASSESSMENTS Encounter Date Diagnosis Assessment Notes Treatment Notes Treatment Clinical Notes 12/19/2023 Encounter for screening colonoscopy (ICD-10 - Z12.11) 12/19/2023 Colon polyps (ICD-10 - K63.5) 11/24/2023 FH: colon cancer (ICD-10 - Z80.0) Colonoscopy discharge material was printed 11/24/2023 Change in bowel movement (ICD-10 - R19.8) 11/25/2023 GI symptoms (ICD-10 - R19.8) 11/24/2023 Colon cancer screening (ICD-10 - Z12.11) PLAN OF TREATMENT Pending Test Test Name Order Date OVA & PARASITES (O&P) 11/24/2023 STOOL WBC 11/24/2023 GI PANEL 11/24/2023 Future Test Test Name Order Date COLONOSCOPY 06/04/2018 COLONOSCOPY 11/24/2023 Insurance Providers Payer Name Payer Address Payer Phone Subscriber Number Group Number Insured Name Patient Relationship to Insured Coverage Start Date Coverage End Date [facility] [address] Attn Claims LORETTA Fernandez [id number] JULIANNA RODRIGUEZ Self - patient is the insured MEDICAL (GENERAL) HISTORY Medical History History ICD Code asthma/seasonal elevated cholesterol Surgical History Surgery Date(Month/Year) hysterectomy 2015 Bladder sling 2015 breast augmentation 1995 tubal ligation 1991 left knee replacement 08/12/23
--- OUTSIDE RECORDS SUMMARY | 2024-08-19 13:40 | XMS_ITS | Encounter Summary ---
Author Organization [employer] Address [address] [facility] 7t [place] [address] Care Team Providers Care Technical Sales Engineer Name Role Phone Ayala Capps MD Primary Care Provider [phone] Reason for Visit * Reason Onset Date Comments Appointment 09/27/2022 Encounter Details Date Type Department Care Team ([facility] Contact Info) Description 09/27/2022 Telephone [facility] CH[facility] ADULT DENTAL [address] [place] [address] Laura Van DDS [address] [place] [address] Appointment Social History Tobacco Use Types Packs/Day Years Used Date Smoking Tobacco: Never Smokeless Tobacco: Never Comments Unknown Sex and Gender Information Value Date Recorded Sex Assigned at Female 05/20/2022 10:17 AM EDT Legal Sex Female 10:17 AM EDT Gender Identity Choose not to disclose 10:17 AM EDT Sexual Orientation Straight 09/09/2022 4: 32 PM EST COVID-19 Exposure Response Date Recorded In the last 10 days, have yo u been in contact with someone who was confirmed or suspected to have Coronavirus/COVID-19? No / Unsure 09/16/2022 1:03 PM EST documented as of this encounter Miscellaneous Notes * Telephone Encounter - Irais Tolbert - 09/27/2022 11:57 AM EST Ilda Taylor 1950 Patient called in and would like a report sent to the insurance of her appt that she had on 09/16 patient has appt on 10/04 but she would not like to get that tooth taken out because it holds her partial she would like the report to be sent to [facility] fax number [phone] please advise documented in this encounter Plan of Treatment Not on file documented as of this encounter Visit Diagnoses Not on filedocumented in this encounter Care Teams Technical Sales Engineer Relationship Specialty Start Date End Date Ayala Capps MD [address] [place] [address] PCP - General Family Medicine 07/21/18 documented as of this encounter
--- OUTSIDE RECORDS SUMMARY | 2024-08-19 13:41 | XMS_ITS ---
Author Organization [facility] Address [address] [place] [phone] Care Team Providers Care Sanitation Laborer Name Role Phone Jefry SMITH, Ayala Primary Care Provider Dominick Teixeira Jr REASON FOR VISIT pathology Encounters Encounter Location Date Provider Diagnosis [facility] [address] [facility] [address] [place] [phone] 12/29/2023 Dominick Vargas Jr PLAN OF TREATMENT No Information
--- OUTSIDE RECORDS SUMMARY | 2024-08-19 13:41 | XMS_ITS | Encounter Summary ---
Author Organization [employer] Address [address] [facility] 7t [place] [address] Care Team Providers Care Passenger Relations Representative Name Role Phone Ayala Capps MD Primary Care Provider [phone] Reason for Visit * Reason Comments Med Refill Encounter Details Date Type Department Care Team (Late st Contact Info) Description 08/24/2022 Refill [facility] MEDICINE [address] [place] [address] Ayala Capps MD [address] [place], [place] [phone] Arthritis (Primary Dx) Social History Tobacco Use Types Packs/Day Years Used Date Smoking Tobacco: Never Assessed Comments Unknown Sex and Gender Information Value Date Recorded Sex Assigned at Female 05/20/2022 10:17 AM EDT Legal Sex Female 10:17 AM EDT Gender Identity Choose not to disclose 10:17 AM EDT Sexual Orientation Straight 09/09/2022 4: 32 PM EST documented as of this encounter Plan of Treatment Not on file documented as of this encounter Visit Diagnoses Diagnosis Arthritis- Primary Unspecified arthropathy, site unspecified documented in this encounter Care Teams Passenger Relations Representative Relationship Specialty Start Date End Date Ayala Capps MD [address] [place], [place] [phone] PCP - General Family Medicine 1/1/19 documented as of this encounter
--- OUTSIDE RECORDS SUMMARY | 2024-08-19 13:41 | XMS_ITS | Encounter Summary ---
Author Organization [employer] Address [address] [facility] [address] 7[address] [place] [address] Care Team Providers Care Center Receptionist Name Role Phone Ayala Capps MD Primary Care Provider [phone] Encounter Details Date Type Department Care Team (Latest Contact Info) Description 08/18/2024 Travel Social History Tobacco Use Types Packs/Day Years Used Date Smoking Tobacco: Former Cigarettes 0.5 15 Smokeless Tobacco: Never Alcohol Use Standard Drinks/Week Comments Yes 8 (1 standard drink = 0.6 oz pur e alcohol) Depression Answer Date Recorded Patient Health Questionnaire-9 Score 2 08/19/2024 Patient Health Questionnaire-9 Score 2 08/19/2024 Last PHQ-9: Questionnaire Data Not on file 0 08/19/2024 Housing Stability Answer Date Recorded What is your housing situation today? I have josue severino 08/19/[address] you li ve. Do you have problems with any of the following? None of the above 08/19/2024 Food Insecurity Answer Date Recorded Within the past 12 months, y ou worried that your food would run out before you got money to buy more: Never True 08/19/2024 Within the past 12 months,th e food you bought just didn't last and you didn't have enough money to get more: Never True Transportation Answer Date Recorded In the past 12 months, has l ack of transportation kept you from medical appts, meetings, work or from getting things needed for daily living? No 08/19/2024 Utilities Answer Date Recorded In the past 12 months, has t he electric, gas, oil or water company threatened to shut off services in your home? No 08/19/2024 Depression Answer Date Recorded Patient Health Questionnaire-2 Score 1 08/19/2024 Internet Access Answer Date Recorded Internet Access Q1 Yes 08/19/2024 Internet Access Q2 Not on file 08/19/2024 Comments No Sex and Gender Information Value Date Recorded [...] on filedocumented in this encounter Care Teams Center Receptionist Relationship Specialty Start Date End Date Ayala Capps MD [address] [place] [address] PCP - General Family Medicine 07/21/18 documented as of this encounter
--- OUTSIDE RECORDS SUMMARY | 2024-08-19 13:41 | XMS_ITS | Encounter Summary ---
Author Organization [employer] Address [address] [facility] 7t [place] [address] Care Team Providers Care Blueprint Reader Name Role Phone Ayala Capps MD Primary Care Provider [phone] Encounter Details Date Type Department Care Team (Latest Contact Info) Description 12/01/2020 Abstract [facility] Dental, Provider, DDS Social History Tobacco Use Types Packs/Day Years [...] on filedocumented in this encounter Care Teams Blueprint Reader Relationship Specialty Start Date End Date Ayala Capps MD [address] [facility] [address] [place] [address] PCP - General Family Medicine 07/21/18 documented as of this encounter
--- OUTSIDE RECORDS SUMMARY | 2024-08-19 13:41 | XMS_ITS | Encounter Summary ---
Author Organization [employer] Address [address] [facility] [address] [place] [address] Care Team Providers Care Print Washer Name Role Phone Ayala Capps MD Primary Care Provider Encounter Details Date Type Department Care Team (Latest Contact Info) Description 08/16/2019 Abstract [facility] CONVERSIONS Dental, Provider, DDS Social History [...] on filedocumented in this encounter Care Teams Print Washer Relationship Specialty Start Date End Date Ayala Cpaps MD [address] [place] [address] PCP - General Family Medicine 07/21/18 documented as of this encounter
--- OUTSIDE RECORDS SUMMARY | 2024-08-19 13:41 | XMS_ITS | Encounter Summary ---
Author Organization [employer] Address [address] [facility] [address] [place] [address] Care Team Providers Care Engine Pilot Name Role Phone Ayala Capps MD Primary Care Provider [phone] Reason for Referral * Consultation (Routine) - Pending Review Specialty Diagnoses / Procedures Referred By Kandy jarquin Referred To Contact Audiology Diagnoses Routine history and physical examination of adult Evaluation of hearing impairment Ayala Capps MD [address] [place] [address] Phone: tel: fax: Referral ID Status Reason Start Date Expiration Date Visits Requested Visits Authorized [id number] Pending Review Specialty Services Required 08/19/2024 08/19/2025 1 1 Encounter Details Date Type Department Care Team ([facility] st Contact Info) Description 08/19/2024 9:30 AM EST Office Visit [facility] [address] [place] [address] Ayala Capps MD [address] [place] [address] Encounter for immunization (Primary Dx); Routine history and physical examination of adult; Evaluation of hearing impairment; Hypercholesterolemia Social History Tobacco Use Types Packs/Day Years Used Date Smoking Tobacco: Former Cigarettes 0.5 15 Passive Smoke Exposure: Past Smokeless Tobacco: Never Tobacco Cessation:Counseling Given: Not Answered Alcohol Use Standard Drinks/Week Comments Yes 8 [...] PM EST documented as of this encounter Last Filed Vital Signs Vital Sign Reading Time Taken Comments Blood Pressure 132/62 08/19/2024 9:39 AM EST Pulse 68 08/19/2024 9:39 AM EST Temperature 36.4 ??C (97.5 ??F) 08/19/2024 9:39 AM ES T Respiratory Rate 20 08/19/2024 9:39 AM EST Oxygen Saturation 97% 08/19/2024 9:39 AM EST Inhaled Oxygen Concentration - - Weight 61.7 kg (136 lb) 08/19/2024 9:39 AM EST Height 159.4 cm (5' 2.75 ) 08/19/2024 9:39 AM ES T Body Mass Index 24.28 08/19/2024 9:39 AM EST documented in this encounter Progress Notes * Ayala Capps MD - 08/19/2024 9:30 AM EST Subjective Patient ID: Ilda Taylor is a 73 y.o. adult who presents for her PE visit. Ilda is a 73-year-old female patient of mine here for her physical annual visit. She had an uncomplicated left knee replacement surgery. Is on still on same medications as usual. She is up-to-date for her mammogram colonoscopy and bone density test. She is due for her fasting blood work today which she will get drawn. Admits her motivation level is lower than usual and needs to start exercising again. Lives with her partner of many years. She is retired. States she is told needs a hearing testby her family members. Memory is very sharp. Denies insomnia. Denies depression. History provided by: Patient acute care assistant used: No Review of Systems Constitutional: Negative for activity change, chills, fever and unexpected weight change. HENT: Positive for hearing loss. Negative for dental problem. Respiratory: Negative for cough, shortness of breath and wheezing. Cardiovascular: Negative for chest pain, palpitations and leg swelling. Gastrointestinal: Negative for abdominal pain and blood in stool. Endocrine: Negative for polydipsia and polyuria. Genitourinary: Negative for decreased urine volume, difficulty urinating, dysuria and hematuria. Musculoskeletal: Negative for arthralgias and gait problem. Skin: Negative for color change and rash. Allergic/Immunologic: Positive for environmental allergies. Neurological: Negative for dizziness and headaches. Hematological: Negative for adenopathy. Psychiatric/Behavioral: Negative for dysphoric mood, hallucinations, sleep disturbance and suicidalideas. The patient is not nervous/anxious. Objective BP 132/62 (BP Location: Left arm, Patient Position: Sitting, BP Cuff Size: Adult) Pulse68 Temp 97.5 ??F (36.4 ??C) (Oral) Resp 20 Ht 5' 2.75 (1.594 m) Wt 136 lb (61.7 kg) UtS329% BMI 24.28 kg/m?? Physical Exam Constitutional: General: Ilda is not in acute distress. Appearance: Normal appearance. Ilda is not ill-appearing. HENT: Head: Normocephalic. Right Ear: Tympanic membrane and ear canal normal. Left Ear: Tympanic membrane and ear canal normal. Nose: Nose normal. Mouth/Throat: Mouth: Mucous membranes are moist. Pharynx: No oropharyngeal exudate or posterior oropharyngeal erythema. Eyes: Extraocular Movements: Extraocular movements intact. Conjunctiva/sclera: Conjunctivae normal. Pupils: Pupils are equal, round, and reactive to light. Cardiovascular: Rate and Rhythm: Normal rate and regular rhythm. Pulses: Normal pulses. Heart sounds: Normal heart sounds. Pulmonary: Effort: Pulmonary effort is normal. No respiratory distress. Breath sounds: Normal breath sounds. Abdominal: Palpations: Abdomen is soft. Musculoskeletal: General: Normal range of motion. Cervical back: Normal range of motion. Skin: General: Skin is warm. Capillary Refill: Capillary refill takes less than 2 seconds. Findings: No rash. Neurological: General: No focal deficit present. Mental Status: Ilda is alert and oriented to person, place, and time. Psychiatric: Mood and Affect: Mood normal. Behavior: Behavior normal. Thought Content: Thought content normal. Judgment: Judgment normal. Assessment/Plan Diagnoses and all orders for this visit: Encounter for immunization Comments: Ilda received her flu vaccine today with no complications. She is up-to-date with all other vaccines. Orders: - Basic Metabolic Panel, Fasting; Future - CBC auto differential; Future - Lipid Panel, Standard; Future - TSH W/Reflex to FT4; Future - Hepatic Function Panel; Future - Vitamin D, 25-Hydroxy, Total, Immunoassay; Future - FLU VACCINE TRIVALENT (Fluarix) 6 mo + Routine history and physical examination of adult Comments: Ilda needs her repeat colonoscopy in 2028. Mammogram this summer and DEXA scan next year. Fasting labs drawn today she will be called with results. Orders: - Basic Metabolic Panel, Fasting; Future - CBC auto differential; Future - Lipid Panel, Standard; Future - TSH W/Reflex to FT4; Future - Hepatic Function Panel; Future - Vitamin D, 25-Hydroxy, Total, Immunoassay; Future - Referral to Audiology; Future Evaluation of hearing impairment Comments: And audiology referral will be done today, advised not to miss. Orders: - Referral to Audiology; Future Hypercholesterolemia Comments: Patient takes low-dose statin therapy fasting lipids and LFTs will be checked today, adjust dosage if needed. Other orders - Diclofenac Sodium 1 % gel; Apply daily to affected areas as needed for pain - rosuvastatin (Crestor) 10 MG tablet; Take 1 tablet (10 mg) by mouth Once per day. - SUMAtriptan (Imitrex) 100 MG tablet; Take 1 tablet orally at onset of migraine,repeat in 2 hours if needed only documented in this encounter Plan of Treatment Scheduled Orders Name Type Priority Associated Diagnoses Orde r Schedule Basic Metabolic Panel, Fasting Lab Routine Encounter for immunization Routine history and physical examination of adult Expected: 08/19/2024 (Approximate), Expires: 08/19/2025 CBC auto differential Lab Routine Encounter for immunization Routine history and physical examination of adult Expected: 08/19/2024 (Approximate), Expires: 08/19/2025 Lipid Panel, Standard Lab Routine Encounter for immunization Routine history and physical examination of adult Expected: 08/19/2024 (Approximate), Expires: 08/19/2025 TSH W/Reflex to FT4 Lab Routine Encounter for immunization Routine history and physical examination of adult Expected: 08/19/2024 (Approximate), Expires: 08/19/2025 Hepatic Function Panel Lab Routine Encounter for immunization Routine history and physical examination of adult Expected: 08/19/2024 (Approximate), Expires: 08/19/2025 Vitamin D, 25-Hydroxy, Total, Immunoassay Lab Routine Encounter for immunization Routine history and physical examination of adult Expected: 08/19/2024 (Approximate), Expires: 08/19/2025 Scheduled Referrals Name Type Priority Associated Diagnoses Orde r Schedule Referral to Audiology Outpatient Referral Routine Routine history and physical examination of adult Evaluation of hearing impairment Expected: 08/19/2024 (Approximate), Expires: 08/19/2025 documented as of this encounter Visit Diagnoses Diagnosis Encounter for immunization- Primary Routine history and physical examination of adult Evaluation of hearing impairment Other examination of ears and hearing Hypercholesterolemia Pure hypercholesterolemia documented in this encounter Additional Health Concerns Assessment Noted Time PHQ-9 Depression Total Score: 2 08/19/19 25 10:08 AM EST documented as of this encounter Care Teams Engine Pilot Relationship Specialty Start Date End Date Ayala Capps MD [address] [place] [address] PCP - General Family Medicine 07/21/18 documented as of this encounter
--- OUTSIDE RECORDS SUMMARY | 2024-08-19 13:41 | XMS_ITS | Encounter Summary ---
Author Organization [employer] Address [address] [facility] [address] [place] [address] Care Team Providers Care Sales Communications Manager Name Role Phone Ayala Capps MD Primary Care Provider Encounter Details Date Type Department Care Team (Latest Contact Info) Description 01/14/2022 Abstract [facility] CONVERSIONS Dental, Provider, DDS Social History [...] on filedocumented in this encounter Care Teams Sales Communications Manager Relationship Specialty Start Date End Date Ayala Capps MD [address] [place] [address] PCP - General Family Medicine 07/21/18 documented as of this encounter
--- OUTSIDE RECORDS SUMMARY | 2024-08-19 13:41 | XMS_ITS | Encounter Summary ---
Author Organization [employer] Address [address] [facility] [address] [place] [address] Care Team Providers Care Sales Floor Associate Name Role Phone Ayala Capps MD Primary Care Provider [phone] Encounter Details Date Type Department Care Team ([facility] Contact Info) Description 05/26/2023 Abstract [facility] MEDICINE [address] [place] [address] Ayala Capps MD [address] [place], [place] [id number] Social History Tobacco Use Types Packs/Day Years Used Date Smoking Tobacco: Former Cigarettes 0.5 15 Smokeless Tobacco: Never Alcohol Use Standard Drinks/Week Comments Yes 8 (1 standard drink = 0.6 oz pur e alcohol) Comments No Sex and Gender Information Value Date Recorded Sex Assigned at Female 05/20/2022 10:17 AM EDT Legal Sex Female 10:17 AM EDT Gender Identity Choose not to disclose 10:17 AM EDT Sexual Orientation Straight 09/09/2022 4: 32 PM EST documented as of this encounter Plan of Treatment Not on file documented as of this encounter Procedures Procedure Name Priority Date/Time Associated Diagnosis Comments COLONOSCOPY Routine 09/04/2018 documented in this encounter Results * Colonoscopy (09/04/2018) Colonoscopy Normal Normal Narrative Rossy Blair - 09/04/2018 Recommended 10 year follow up us Historical Provider HEALTH MAINTENANCE Final Result documented in this encounter Visit Diagnoses Not on filedocumented in this encounter Care Teams Sales Floor Associate Relationship Specialty Start Date End Date Ayala Capps MD [address] [place] [address] PCP - General Family Medicine 07/21/18 documented as of this encounter
--- OUTSIDE RECORDS SUMMARY | 2024-08-19 13:41 | XMS_ITS ---
Author Organization [facility] Address [address] [place] [address] Care Team Providers Care Manager Registration Name Role Phone Jefry SMITH, Ayala Primary Care Provider Dominick Teixeira Jr Unavailable REASON FOR VISIT screening, fam hx colon ca Encounters Encounter Location Date Provider Diagnosis [facility] Outpatient [address] [place] [phone] 12/19/2023 Dominick Vargas Jr Encounter for screening colonoscopy Z12.11 and Colon polyps K63.5 ASSESSMENTS Encounter Date Diagnosis Assessment Notes Treatment Notes Treatment Clinical Notes 12/19/2023 Encounter for screening colonoscopy (ICD-10 - Z12.11) 12/19/2023 Colon polyps (ICD-10 - K63.5) PLAN OF TREATMENT No Information
--- OUTSIDE RECORDS SUMMARY | 2024-08-19 13:41 | XMS_ITS | Clinical Summary ---
Author Organization [employer] Address [address] [facility] 7t [place] [address] Care Team Providers Care Director Radio News Name Role Phone Ayala Capps MD Primary Care Provider [phone] Allergies No known active allergies Medications albuterol (Ventolin HFA) 108 (90 Base) MCG/ACT inhalerIndicatio ns:Allergic rhinitis due to other allergic trigger, unspecified seasonality,Age- related osteoporosis without current pathological fracture INHALE 2 PUFFS BY MOUTH EVERY 4 HOURS NEEDED 18 g 1 08/12/19 24 Active levocetirizine (Xyzal) 5 MG tablet Take 1 tablet (5 mg) by mouth in the evening. 30 tablet 11 12/08/19 24 025 Active diclofenac (Cataflam) 50 MG tablet TAKE 1 TABLET (50 MG) BY MOUTH IF NEEDED IN THE MORNING, AT NOON, AND AT BEDTIME FOR PAIN 60 tablet 12/17/19 24 Active cholecalciferol VITAMIN D (Vitamin D-3) 50 MCG (1999 UT) capsule TAKE 1 CAPSULE BY MOUTH TWICE A DAY 180 capsule 3 02/04/20 24 Active alendronate (Fosamax) 70 MG tabletIndication s:Allergic rhinitis due to other allergic trigger, unspecified seasonality,Age- related osteoporosis without current pathological fracture TAKE 1 TABLET BY MOUTH ONE TIME PER WEEK 12 tablet 06/14/20 24 Active lidocaine-priloc kayode (Emla) 2.5-2.5 % cream APPLY BY TOPICAL ROUTE EVERY DAY NEEDED. 60 g 3 07/07/20 24 Active Diclofenac Sodium 1 % gel Apply daily to affected areas as needed for pain 100 g 3 08/19/19 25 Active rosuvastatin (Crestor) 10 MG tablet Take 1 tablet (10 mg) by mouth Once per day. 90 tablet 3 08/19/19 25 Active SUMAtriptan (Imitrex) 100 MG tablet Take 1 tablet orally at onset of migraine,re peat in 2 hours if needed only 10 tablet 5 08/19/19 25 Active rosuvastatin (Crestor) 10 MG tablet Take 1 tablet by mouth at bed time. 03/05/20 22 025 Discontinued(Re order (will not trigger notification to Pharmacy)) SUMAtriptan (Imitrex) 50 MG tablet TAKE 1 TABLET BY MOUTH 1 (ONE) TIME IF NEEDED FOR MIGRAINE ( NEEDED FOR MIGRAINE HEADACHE) FOR UP TO 40 DOSES. 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 Send diclofenac. Consider referral to PT if symptoms persist. Hypercholesterolemia 04/14/2018 Allergic rhinitis 11/09/2012 Polyp of colon 11/09/2012 Encounters Date Type Department Care Team Description 08/19/2024 9:30 AM EST Office Visit [facility] MED & PEDS [address] [place] [address] Ayala Capps MD Encounter for immunization (Primary Dx); Routine history and physical examination of adult; Evaluation of hearing impairment; Hypercholesterolemia 08/18/2024 Travel 08/18/2024 Telephone [facility] [address] [place] [address] Ayala Capps MD Chart Prep 08/11/2024 Patient Outreach [facility] [address] [place] [address] Ayala Capps MD Pre-visit Planning ([facility] unable to reach LV) 07/06/2024 Refill [facility] [address] [place] [address] Cecilia Tolbert MD 06/12/2024 Refill [facility] MEDICINE [address] [place], [place] [phone] Ayala Capps MD Allergic rhinitis due to other allergic trigger, unspecified seasonality; Age-related osteoporosis without current pathological fracture from Last 3 Months Immunizations Name Administration Dates Next Due Hep B, adult 11/01/2019,08/16/2019,07/08/2019 Influenza High-dose Quadriva lent Preservative Free 05/17/2022,06/19/2020 Influenza Quadrivalent Adjuvanted 05/18/2021 Influenza, IIV3, injectable 06/04/2018 Influenza, seasonal, injecta ble, preservative free 08/19/2024 Pneumococcal Conjugate PCV 13 09/15/2018 Tdap 12/20/2015 Zoster, Recombinant 12/23/2018 Zoster, live 05/18/2015 Family History Medical History Relation Name Comments Mental illness Brother Demetri Cancer Father Dad Heart disease Maternal Grandfather Vanesa Hearing loss Maternal Grandmother Akosua Stroke Maternal Grandmother Akosua Vision loss Maternal Grandmother Akosua Cancer Mother Elayne Miscarriages / Stillbirths Mother Elayne Relation Name Status Comments Brother Demetri Father Dad Maternal Grandfather Vanesa Maternal Grandmother Akosua Mother Elayne Social History Tobacco Use Types Packs/Day Years [...] Orientation Straight 09/09/2022 4: 32 PM EST Last Filed Vital Signs Vital Sign Reading [...] Mass Index 24.28 08/19/2024 9:39 AM EST Plan of Treatment Health Maintenance Due Date Last Done Comments CT Colonography 1952 FIT DNA/Cologuard 1950 FIT 1950 FOBT 1950 Sigmoidoscopy 1950 Hepatitis C Screening 1970 Hepatitis A Vaccines (1 of 2 - Risk 2-dose series) 11/14/1971 RSV Patients and Patients Aged 60 years or older (1 - Risk 60-74 years 1-dose series) 2012 Pneumococcal Vaccine: 50+ Years (2 of 2 - PPSV23) 11/10/2018 09/15/2018 Zoster Vaccines (3 of 3) 02/17/2019 12/23/2018, 04/21 Dental Oral Exam 07/12/2022 01/09/2022 Dental X-Ray: Bitewings 03/05/2024 03/04/20 23, 09/16/2022, 01/09/2022 COVID-19 Vaccine ( season) 2024 05/17/2022, 05/18/2021, 11/02/2020, Additional history exists Dental Prophylaxis 08/07/2024 02/04/2024, 1 08/31/2022, 03/11/2023, Additional history exists Dental X-Ray: Full Mouth 01/10/2025 01/09/2022 Alcohol/Substance Use Screening 08/19/2025 08/19/2024 Depression Screening 08/19/2025 08/19/2024, 08/19/19 SDOH Screening 08/19/2025 08/19/2024 Tobacco Screening 08/19/2025 08/19/2024 DTaP/Tdap/Td Vaccines (2 - Td or Tdap) 12/19/2025 12/20/2015 Mammogram 01/20/2026 01/21/2024, 12/20, 12/08/2020, Additional history exists Colonoscopy 12/18/2033 12/19/2023, 09/04/2018 Colorectal Cancer Screening 12/18/2033 Hepatitis B Vaccines Completed 11/01/2019, 08/16/2019, 07/08/2019 Influenza Vaccine Completed 08/19/2024, , 05/18/2021, Additional history exists HIB Vaccines Aged Out No longer eligi ble based on patient's age to complete this topic HPV Vaccines Aged Out No longer eligi ble based on patient's age to complete this topic IPV Vaccines Aged Out No longer eligi ble based on patient's age to complete this topic Meningococcal Vaccine Aged Out No kenton praveen eligible based on patient's age to complete this topic RSV under 20 months Aged Out No longe r eligible based on patient's age to complete this topic Rotavirus Vaccines Aged Out No longer eligible based on patient's age to complete this topic Procedures Procedure Name Priority Date/Time Associated Diagnosis Comments PROPHYLAXIS - ADULT Routine 02/04/2024 1 0:00 AM EDT BI MAMMOGRAM SCREEN W FLORENCIO W IMPLANTS LUIS Routine 01/21/2024 9:08 AM EDT HM COLONOSCOPY Routine 12/19/2023 BITEWING - SINGLE RADIOGRAPHIC IMAGE Routine 03/04/2023 2:00 PM EDT from Last 3 Months or Most Recently Relevant to Health Maintenance Results * BI Mammogram Screen w/ Florencio w/ Implants Luis (01/21/2024 9:08 AM EDT) Anatomical Region Laterality Modality Mammography 01/21/2024 9:08 AM EDT Narrative 02/18/2024 2:36 PM EDT ? [facility] ? [address] ?[place] [address] ? Mammography Report ? Signed ? Patient: Ilda Taylor ?MR#: [id number] ?? 01 ? : 1950 ?Acct:[id number] ? Age/Sex: 73 / F ?ADM Date: 01/20/ ? Loc: HO.MAMMO ? Attending Dr: Cecilia Tolbert MD ? Ordering Physician: Cecilia Tolbert MD ?Results: 2Beni ?? gn Findings ? Date of Service: 01/21/24 ?Follow Up: 1 Year From Orig ?? inal Mammogram ? Procedure(s): MM tomosynthesis screen imp BI ?? Accession Number(s): [id number] ? cc: Cecilia Tolbert MD ? EXAMINATION: ?? MM SCREENING DIGITAL BREAST TOMOSYNTHESIS, BILATERAL ? CLINICAL INFORMATION: ? Screening. Asymptomatic. ? COMPARISON: ?? Mammography: This study is compared with prior exams dating back to ?? 2019. ? TECHNIQUE: ?? Digital mammography is performed in craniocaudal and mediolateral ?? oblique views along with computer-aided detection (CAD). Digital breast ?? tomosynthesis is performed in implant-displaced craniocaudal and ?? implant-displaced mediolateral oblique views along with computer-aided ?? detection (CAD). Synthesized 2D images are generated from the ?? tomosynthesis. ? FINDINGS: ?? There are scattered areas of fibroglandular density (ACR BI-RADS breast ?? composition Category b). ? There are bilateral, mammographically intact, retroglandular saline ?? breast implants. There is some calcification of the capsule of the left ?? breast implant. This is benign. ?? There are no significant masses, abnormal calcifications, or other ?? abnormalities. ? MM/MM tomosynthesis screen imp BI ?? IMPRESSION: ?? There are no significant changes from prior study. ? ASSESSMENT: ? BI-RADS BI-RADS 2 - Benign Findings ? RECOMMENDATION: ?? Routine annual mammography screening. ? 1 year F/U ? This patient's information was entered into a reminder system with a ?? target due date for their next mammogram. ? Dictated By: ?Cathy Burton MD ? Signed By: ?<Electronically signed by Cathy Burton MD in OV> ? 07//24 1433 ? DD/DT: 01/20/ 0908 ? TD/TT: ? Size Stamper: ? Procedure Note Donotuseinterpreter, Image - 02/18/2024 [place] [facility] [address] [place] [address] Mammography Report Signed Patient: Ilda Taylor AMR#: [id number] 01 : 3Acct:[id number] Age/Sex: 73 / FADM Date: 01/21/24 Loc: HO.MAMMO Attending Dr: Cecilia Tolbert MD Ordering Physician: Cecilia Tolbert MDResults: 2Beni gn Findings Date of Service: 01/21/24Follow Up: 1 Year From Orig inal Mammogram Procedure(s): MM tomosynthesis screen imp BI Accession Number(s): [id number] cc: Cecilia Tolbert MD EXAMINATION: MM SCREENING DIGITAL BREAST TOMOSYNTHESIS, BILATERAL CLINICAL INFORMATION: Screening. Asymptomatic. COMPARISON: Mammography: This study is compared with prior exams dating back to 2019. TECHNIQUE: Digital mammography is performed in craniocaudal and mediolateral oblique views along with computer-aided detection (CAD). Digital breast tomosynthesis is performed in implant-displaced craniocaudal and implant-displaced mediolateral oblique views along with computer-aided detection (CAD). Synthesized 2D images are generated from the tomosynthesis. FINDINGS: There are scattered areas of fibroglandular density (ACR BI-RADS breast composition Category b). There are bilateral, mammographically intact, retroglandular saline breast implants. There is some calcification of the capsule of the left breast implant. This is benign. There are no significant masses, abnormal calcifications, or other abnormalities. MM/MM tomosynthesis screen imp BI IMPRESSION: There are no significant changes from prior study. ASSESSMENT: BI-RADS BI-RADS 2 - Benign Findings RECOMMENDATION: Routine annual mammography screening. 1 year F/U This patient's information was entered into a reminder system with a target due date for their next mammogram. Dictated By: Cathy Burton MD Signed By: <Electronically signed by Cathy Burton MD in OV> 02/18/24 1433 DD/ 0908 TD/TT: Size Stamper: us Cecilia Tolbert MD IMG BI PROCEDURES Final Resul t * Hm Colonoscopy (12/19/2023) Colonoscopy Normal Normal us yAala Capps MD HEALTH MAINTENANCE Final Resu lt from Last 3 Months or Most Recently Relevant to Health Maintenance Insurance [address] [place] [address] [facility] , [facility] [address] [place] [address] [address] [place] [address] # [address] [place] [id number] [address] [place] [id number] Care Teams Director Radio News Relationship Specialty Start Date End Date Ayala Capps MD [address] [facility] [place] [address] PCP - General Family Medicine 07/21/18
--- OUTSIDE RECORDS SUMMARY | 2024-08-19 13:41 | XMS_ITS | Encounter Summary ---
Author Organization [employer] Address [address] [facility] 7t [place] [address] Care Team Providers Care Overseamer Name Role Phone Ayala Capps MD Primary Care Provider [phone] Reason for Visit * Reason Onset Date Comments Chart Prep 08/18/2024 Encounter Details Date Type Department Care Team ([facility] Contact Info) Description 08/18/2024 Telephone [facility] MED [facility] PEDS [address] [place] [address] Ayala Capps MD [address] [place] [address] Chart Prep Social History Tobacco Use Types Packs/Day Years [...] encounter Miscellaneous Notes * Telephone Encounter - Ericka Finch [place] - 08/18/2024 11:10 AM EST Chart Prep Labs: done Images: done Vaccines due: yes Referrals: complete Screenings: STI screening Overdue care gaps: PHQ-9 documented in this encounter Plan of Treatment Not on file documented as of this encounter Visit Diagnoses Not on filedocumented in this encounter Care Teams Overseamer Relationship Specialty Start Date End Date Ayala Capps MD [address] [place] [address] PCP - General Family Medicine 07/21/18 documented as of this encounter
--- OUTSIDE RECORDS SUMMARY | 2024-08-19 13:41 | XMS_ITS | Encounter Summary ---
Author Organization [employer] Address [address] [facility] 7t [place] [address] Care Team Providers Care Protective Signal Operator Name Role Phone Ayala Capps MD Primary Care Provider Reason for Visit * Reason Comments Pre-visit Planning SDOH unable to reach LVM Encounter Details Date Type Department Care Team ([facility] Contact Info) Description 08/11/2024 Patient Outreach [facility] MED & PEDS [address] [place], [place] [phone] Ayala Capps MD [address] [place] [address] Pre-visit Planning (SDOH unable to reach LVM) Social History Tobacco Use Types Packs/Day Years [...] PM EST documented as of this encounter Progress Notes * Aleyda Jaeger - 08/11/2024 1:05 PM EST CC Aleyda Barr placed outbound call to patient to complete pre-visit planning. No answer at this time. Patient name and were not confirmed. CC left voicemail requesting return call. Direct contactinformation provided. documented in this encounter Plan of Treatment Not on file documented as of this encounter Visit Diagnoses Not on filedocumented in this encounter Care Teams Protective Signal Operator Relationship Specialty Start Date End Date Ayala Capps MD [address] [place] [address] PCP - General Family Medicine 07/21/18 documented as of this encounter
[2024-08-19 14:01] LABS: MANUAL DIFF FLAG NO
[2024-08-19 14:19] LABS: Basophils Absolute Auto 0.1 X10*3/uL (0.0-0.2); Basophils Percent Auto 0.9 % (0-2); Eosinophils Absolute Auto 0.1 X10*3/uL (0.0-0.4); Eosinophils Percent Auto 1.5 % (0-4); Hemoglobin 13.4 g/dl (12.0-16.0); Imm Gran Abs Auto 0.01 X10*3/uL (0.00-0.03); Imm Gran Pct Auto 0.2 % (0.0-0.4); Lymphocytes Absolute Auto 1.7 X10*3/uL (1.2-4.9); Lymphocytes Percent Auto 32.5 % (20-40); Mean Corpuscular HGB Conc 32.7 g/dl (31.0-35.0); Mean Corpuscular Hemoglobin 31.2 pg (27.0-33.0); Mean Corpuscular Volume 95.3 fL (80.0-98.0); Mean Platelet Volume 10.6 fL (9.4-12.3); Monocytes Absolute Auto 0.5 X10*3/uL (0.1-1.2); Monocytes Percent Auto 9.9 % (2-11); Neutrophils Absolute Auto 2.9 x10*3/uL (2.0-8.3); Platelet Count 258 X10*3/uL (160-400); Red Cell Distribution Width 12.5 % (11.0-16.0); White Blood Count 5.3 X10*3/uL (4.8-10.8)
[2024-08-19 14:41] LABS: Alanine Aminotransferase 27 U/L (0-31); Albumin Level 4.1 g/dL (3.5-5.0); Alkaline Phosphatase 69 U/L (39-117); Anion Gap 9 (12-20); Aspartate Amino Transferase 24 U/L (5-31); Bilirubin Direct 0.2 mg/dL (0.0-0.5); Bilirubin Total 0.3 mg/dL (0.0-1.0); Blood Urea Nitrogen 14 mg/dL (9-16); Carbon Dioxide 29 mmol/L (22-29); Chloride 106 mmol/L (96-108); Cholesterol 203 mg/dL (<200); Estimated Glomerular Filt Rate > 60; Glucose Fasting 92 mg/dL (60-99); HDL Cholesterol 92 mg/dL (>40); LDL Cholesterol Calculated 95 mg/dL (<100); Potassium 4.1 mmol/L (3.3-5.1); Sodium 140 mmol/L (135-145); Total Protein 6.9 g/dL (6.5-8.0); Triglycerides 84 mg/dL (<150)
[2024-08-19 14:58] LABS: TSH reflex Free T4 1.22 uIU/mL (0.32-4.0); Vitamin D 25-OH Total 64.3 ng/mL (>30)
== END 2024-08-19 10:17 | disposition home or self-care (01) ==
LOC: HO.CHCLDS 10:16
PROVIDERS: Visit Provider Pediatrics
DX: Z00.00 Encounter for general adult medical examination without abnormal findings (principal); Z23 Encounter for immunization
CPT/HCPCS: 36415; 80048; 80061; 80076; 82306; 84443; 85025

== ENCOUNTER 2024-09-20 10:36 | Outpatient (REF) | payer MEDICARE, SELFPAY ==
--- OUTSIDE RECORDS SUMMARY | 2024-09-20 12:23 | XMS_ITS | Patient Health Record ---
Author Organization [facility] Address [address] [place] [address] Care Team Providers Care Directory Carrier Name Role Phone Jefry SMITH, Ayala Primary Care Provider Dominick Teixeira Jr Unavailable [phone] ALLERGIES No Known Allergies RESULTS Component Value Reference Range Notes GI PANEL Reviewed date:12/03/2023 07:46:24 AM Interpretation: Performing Lab:[facility], [address] [place] [phone] Notes/Report: Campylobacter Not Detected Not Detect. Plesiomonas [...] is performed by Multiplexed PCR, utilizing the Digital Union Array. Leukocytes Stool Qualitative Reviewed date:11/27/2023 09:50:18 AM Interpretation: Performing Lab:[address] [address] Notes/Report: Leukocytes Stool Qualitative NEGATIVE NEGATIVE Ova and Parasite Reviewed date:12/03/2023 07:46:32 AM Interpretation: Performing Lab:[facility], [address] [place] [phone] Notes/Report: Ova and Parasite SEE NOTE OVA AND PARASITES, CONC AND PERM SMEAR Micro Number: [id number] Test Status: Final Specimen Source: Stool Specimen [...] infection. For additional information, please refer to https://education.TapTrak.The Farmery/faq/GNZ459 (This link is being provided for informational/ educational purposes only.) THIS TEST WAS PERFORMED AT: [facility] [address] [address] KELSIE SAUCEDO MD Pathology Reviewed date:12/29/2023 08:36:55 AM Interpretation: Performing Lab:[address] [address] Notes/Report: REASON FOR REFERRAL No Information MEDICATIONS [...] Problem Colon cancer screening (Z12.11) Active confirmed 605826533 Problem longterm (current) use of aspirin (Z79.82) Active confirmed 856945170112585 Problem FH: colon cancer (Z80.0) Active confirmed 804724131 Problem Change in bowel movement (R19.8) Active confirmed 03449147 VITAL SIGNS Temperature 98.2 degrees Fahrenheit 11/24/2023 Blood pressure diastolic 00 mm Hg 11/24/2023 Height 64 in 11/24/2023 Blood pressure systolic 000 mm Hg 11/24/2023 Weight 129 lbs 11/24/2023 BMI 22.14 kg/m2 11/24/2023 Encounters Encounter Location Date Provider Diagnosis [facility] Outpatient [address] [place] [id number] 12/19/2023 Dominick Vargas Jr Encounter for screening colonoscopy Z12.11 and Colon polyps K63.5 [facility] [address] [place] [phone] 11/24/2023 Dominick Vargas Jr FH: colon cancer Z80.0 ; Change in bowel movement R19.8 and Colon cancer screening Z12.11 [facility] [address] [place] [phone] 11/25/2023 Dominick Vargas Jr GI symptoms R19.8 [facility] [address] [place] [phone] 12/02/2023 Dominick Vargas Jr [facility] [address] [place] [phone] 12/29/2023 Dominick Vargas Jr ASSESSMENTS Encounter Date [...] Insured Coverage Start Date Coverage End Date [facility] [address] Attn Claims LORETTA Fernandez [id number] JULIANNA RODRIGUEZ Self - patient is the insured MEDICAL (GENERAL) HISTORY Medical History History ICD Code asthma/seasonal elevated cholesterol Surgical History Surgery Date(Month/Year) hysterectomy 2015 Bladder sling 2015 breast augmentation 1995 tubal ligation 1991 left knee replacement 08/12/23
--- OUTSIDE RECORDS SUMMARY | 2024-09-20 12:23 | XMS_ITS | Encounter Summary ---
Author Organization [employer] Address [address] [facility] 7t [place] [address] Care Team Providers Care Personal Banker Name Role Phone Ayala Capps MD Primary Care Provider [phone] Reason for Visit * Reason Comments Med Refill Encounter Details Date Type Department Care Team (Late st Contact Info) Description 09/03/2024 Refill [facility] MEDICINE [address] [place] [address] Ayala Capps MD [address] [facility] [place] [address] Allergic rhinitis due to other allergic trigger, unspecified seasonality; Age-related osteoporosis without current pathological fracture Social History Tobacco Use Types Packs/Day Years Used Date Smoking Tobacco: Former Cigarettes 0.5 15 Passive Smoke Exposure: Past Smokeless Tobacco: Never Alcohol Use Standard Drinks/Week [...] as of this encounter Plan of Treatment Upcoming Encounters Date Type Department Care Team (Late st Contact Info) Description 09/21/2024 9:00 AM EST Office Visit [facility] ADULT DENTAL [address] [place] [address] Mckenna Rivas, DDS [address] [place], [place] [phone] 03/08/2025 9:00 AM EDT Office Visit [facility] [address] [place], [place] [phone] Alyssa Gann [address] [place], [place] [phone] documented as of this encounter Visit Diagnoses Diagnosis Allergic rhinitis due to other allergic trigger, unspecified seasonality Age-related osteoporosis without current pathological fracture documented in this encounter Additional Health Concerns Assessment Noted Time PHQ-9 Depression Total Score: 2 08/19/19 25 10:08 AM EST documented as of this encounter Care Teams Personal Banker Relationship Specialty Start Date End Date Ayala Capps MD [address] [place] [address] PCP - General Family Medicine 07/21/18 documented as of this encounter
--- OUTSIDE RECORDS SUMMARY | 2024-09-20 12:23 | XMS_ITS ---
Author Organization [facility] Address [address] [place] [address] Care Team Providers Care Belly Roller Name Role Phone Jefry SMITH, Ayala Primary Care Provider Dominick Teixeira Jr REASON FOR VISIT pathology Encounters Encounter Location Date Provider Diagnosis [facility] [address] [facility] [address] [place] [phone] 12/29/2023 Dominick Vargas Jr PLAN OF TREATMENT No Information
--- OUTSIDE RECORDS SUMMARY | 2024-09-20 12:23 | XMS_ITS | Encounter Summary ---
Author Organization [employer] Address [address] [facility] 7t [place] [address] Care Team Providers Care Wet Pour Mixer Name Role Phone Ayala Capps MD Primary Care Provider [phone] Reason for Visit * Reason Onset Date Comments Appointment 09/27/2022 Encounter Details Date Type Department Care Team ([facility] Contact Info) Description 09/27/2022 Telephone [facility] ADULT DENTAL [address] [place] [address] Laura Van DDS [address] [place] [address] Appointment Social History Tobacco Use Types Packs/Day [...] like the report to be sent to [facility] fax number [phone] please advise documented in this encounter Plan of Treatment Upcoming Encounters Date Type Department Care Team (Late st Contact Info) Description 09/21/2024 9:00 AM EST Office Visit [facility] ADULT DENTAL [address] [place], [place] [phone] Mckenna Rivas DDS [address] [place] [address] 03/08/2025 9:00 AM EDT Office Visit [facility] [address] [place], [place] [phone] Alyssa Gann [address] [place], [place] [phone] documented as of this encounter Visit Diagnoses Not on filedocumented in this encounter Care Teams Wet Pour Mixer Relationship Specialty Start Date End Date Ayala Capps MD [address] [place], [place] [phone] PCP - General Family Medicine 07/21/18 documented as of this encounter
--- OUTSIDE RECORDS SUMMARY | 2024-09-20 12:23 | XMS_ITS ---
Author Organization [facility] Address [address] [place] [address] Care Team Providers Care Doctor'S Assistant Name Role Phone Jefry SMITH, Ayala Primary Care Provider Dominick Teixeira Jr Unavailable [phone] REASON FOR VISIT screening, fam hx colon ca Encounters Encounter Location Date Provider Diagnosis [facility] Outpatient [address] [place] [phone] 12/19/2023 Dominick Vargas Jr Encounter for screening colonoscopy Z12.11 and Colon polyps K63.5 ASSESSMENTS Encounter Date Diagnosis Assessment Notes Treatment Notes Treatment Clinical Notes 12/19/2023 Encounter for screening colonoscopy (ICD-10 - Z12.11) 12/19/2023 Colon polyps (ICD-10 - K63.5) PLAN OF TREATMENT No Information
--- OUTSIDE RECORDS SUMMARY | 2024-09-20 12:23 | XMS_ITS | Encounter Summary ---
Author Organization [employer] Address [address] [facility] [address] 7t [place] [address] Care Team Providers Care Chemical Processor Name Role Phone Ayala Capps MD Primary Care Provider [phone] Reason for Visit * Reason Comments Routine Cleaning Encounter Details Date Type Department Care Team ([facility] Contact Info) Description 09/02/2024 9:00 AM EST Office Visit [facility] [address] [place], [place] [phone] Alyssa Gann [address] [place], [place] [phone] Social History Tobacco Use Types Packs/Day Years [...] Sign Reading Time Taken Comments Blood Pressure 108/76 09/02/2024 9:01 AM EST Pulse - - Temperature 28.3 ??C (83 ??F) 09/02/2024 9:01 AM EST Respiratory Rate - - Oxygen Saturation - - Inhaled Oxygen Concentration - - Weight - - Height - - Body Mass Index - - documented in this encounter Progress Notes * Alyssa Gann - 09/02/2024 9:00 AM EST Patient ID: Ilda Taylor is a 73 y.o. adult. Time Out: Date: 09/02/2024 Location: [facility] Tooth: all Procedure: X-rays and Prophylaxis Verified the above with patient, phlebotomist medical lab assistant, and provider. Confirmed via patient's chart, intraorally and by radiographs. Shot Polisher: not applicable Treatment Provided Dental procedures in this visit D9450 - CASE PRESENTATION, DETAILED AND EXTENSIVE TREATMENT PLANNING (Completed) Service provider: Alyssa Gann Billing provider: Symone Bettencourt BDS D1110 - PROPHYLAXIS - ADULT (Completed) Service provider: Alyssa Gann Billing provider: Symone Bettencourt BDS D0272 - BITEWINGS - 2 RADIOGRAPHIC IMAGES (Completed) Service provider: Alyssa Gann Billing provider: Symone Bettencourt BDS D0220 - INTRAORAL - PERIAPICAL FIRST RADIOGRAPHIC IMAGE (Completed) Service provider: Alyssa Gann Billing provider: Symone Bettencourt BDS D0230 - INTRAORAL - PERIAPICAL EACH ADDITIONAL RADIOGRAPHIC IMAGE (Completed) Service provider: Alyssa Gann Billing provider: Symone Bettencourt BDS Instruments Used: Hand Scalers and Prophy angle Calculus: Light Plaque: Light Stain: None Bleeding: Light Gingiva: inflamed OH: Fair OCS: neg findings HNE: neg findings Oral hygiene instructions provided to patient including brushing technique and flossing. Recommendations: Floss daily Recall Frequency: 6 mo [place]: Exam @[facility] Hygienist: Alyssa Gann RDH Cosigned by Symone Bettencourt BDS at 09/02/2024 5:21 PM EST documented in this encounter Plan of Treatment Upcoming Encounters Date Type Department Care Team (Late st Contact Info) Description 09/21/2024 9:00 AM EST Office Visit [facility] ADULT DENTAL [address] [place] [address] Mckenna Rivas, DDS [address] [place] [address] 03/08/2025 9:00 AM EDT Office Visit [facility] DENTAL [address] [place] [phone] Alyssa Gann [address] [place] [phone] documented as of this encounter Procedures Procedure Name Priority Date/Time Associated Diagnosis Comments PROPHYLAXIS - ADULT Routine 09/02/2024 9 :00 AM EST INTRAORAL - PERIAPICAL FIRST RADIOGRAPHIC IMAGE Routine 09/02/2024 9:00 AM EST INTRAORAL - PERIAPICAL EACH ADDITIONAL RADIOGRAPHIC IMAGE Routine 09/02/2024 9:00 AM EST CASE PRESENTATION, DETAILED AND EXTENSIVE TREATMENT PLANNING Routine 09/02/2024 9:00 AM EST BITEWINGS - 2 RADIOGRAPHIC IMAGES Routine 09/02/2024 9:00 AM EST documented in this encounter Visit Diagnoses Not on filedocumented in this encounter Additional Health Concerns Assessment Noted Time PHQ-9 Depression Total Score: 2 08/19/19 25 10:08 AM EST documented as of this encounter Care Teams Chemical Processor Relationship Specialty Start Date End Date Ayala Capps MD [address] [place] [phone] PCP - General Family Medicine 07/21/18 documented as of this encounter
--- OUTSIDE RECORDS SUMMARY | 2024-09-20 12:23 | XMS_ITS | Encounter Summary ---
Author Organization [employer] Address 75 [facility] 7t [place] [address] Care Team Providers Care Facs Teacher Name Role Phone Ayala Capps MD Primary Care Provider [phone] Encounter Details Date Type Department Care Team ([facility] Contact Info) Description 02/06/2023 Orders Only [facility] MED [facility] PED[facility] [address] [place] [address] Ayala Capps MD [address] [place] [address] Social History Tobacco Use Types Packs/Day Years [...] Encounters Date Type Department Care Team (Late Contact Info) Description 09/21/2024 9:00 AM EST Office Visit [facility] ADULT DENTAL [address] [place] [address] Mckenna Rivas, HUMBERTOS [address] [place] [address] 03/08/2025 9:00 AM EDT Office Visit [facility] [address] [place], [place] [phone] Alyssa Gann 91 [place], [place] [phone] documented as of this encounter Visit Diagnoses Not on filedocumented in this encounter Care Teams Facs Teacher Relationship Specialty Start Date End Date Ayala Capps MD [address] [place] [phone] PCP - General Family Medicine 07/21/18 documented as of this encounter
--- OUTSIDE RECORDS SUMMARY | 2024-09-20 12:23 | XMS_ITS | Encounter Summary ---
Author Organization [employer] Address 75 [facility] 7t [place] [address] Care Team Providers Care Hip Hop Dance Instructor Name Role Phone Ayala Capps MD Primary Care Provider Encounter Details Date Type Department Care Team (Latest Contact Info) Description 01/14/2022 Abstract [facility] CONVERSIONS Dental, Provider, DDS Social History [...] Description 09/21/2024 9:00 AM EST Office Visit [facility] ADULT DENTAL [address] [place] [address] Mckenna Rivas DDS [address] [place], [place] [phone] 03/08/2025 9:00 AM EDT Office Visit [facility] DENTAL [address] [place], [place] [phone] Alyssa Gann [address] [place], [place] [phone] documented as of this encounter Visit Diagnoses Not on filedocumented in this encounter Care Teams Hip Hop Dance Instructor Relationship Specialty Start Date End Date Ayala Capps MD [address] [place] [phone] PCP - General Family Medicine 07/21/18 documented as of this encounter
--- OUTSIDE RECORDS SUMMARY | 2024-09-20 12:23 | XMS_ITS | Clinical Summary ---
Author Organization [employer] Address 75 [facility] 7t [place] [address] Care Team Providers Care Lime Kiln Worker Name Role Phone Ayala Capps MD Primary Care Provider [phone] Allergies No known active allergies Medications albuterol [...] DAY 180 capsule 3 02/04/20 24 Active lidocaine-priloc kayode (Emla) 2.5-2.5 % [...] Take 1 tablet orally at onset of migraine,repe at in 2 hours if needed only 10 tablet 5 08/19/19 25 Active lidocaine (LMX) 4 % cream Apply topically if needed in the morning, at noon, in the evening, and at bedtime for mild pain. 60 g 3 08/20/19 25 026 Active alendronate (Fosamax) 70 MG tabletIndication s:Allergic rhinitis due to other allergic trigger, unspecified seasonality,Age- related osteoporosis without current pathological fracture TAKE 1 TABLET BY MOUTH ONE TIME PER WEEK 12 tablet 09/03/19 25 Active alendronate (Fosamax) 70 MG tabletIndication s:Allergic rhinitis due to other allergic trigger, unspecified seasonality,Age- related osteoporosis without current pathological fracture TAKE 1 TABLET BY MOUTH ONE TIME PER WEEK 12 tablet 06/14/20 24 025 Discontinued Active Problems Problem Noted Date Diagnosed Date Acute pain of left knee 02/20/2023 Assessment & Plan (03/20/2023 8:45 AM EDT): 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 Send diclofenac. Consider referral to PT if symptoms persist. Hypercholesterolemia 04/14/2018 Allergic rhinitis 11/09/2012 Polyp of colon 11/09/2012 Encounters Date Type Department Care Team Description 09/03/2024 Refill [facility] [address] [place] [address] Ayala Capps MD Allergic rhinitis due to other allergic trigger, unspecified seasonality; Age-related osteoporosis without current pathological fracture 09/02/2024 9:00 AM EST Office Visit [facility] DENTAL [address] [place], [place] [phone] Alyssa Gann 08/26/2024 Travel 08/20/2024 Orders Only [facility] [address] [place] [address] Ayala Capps MD 08/19/2024 9:30 AM EST Office Visit [facility] MED [facility] PEDS [address] [place], [place] [phone] Ayala Capps MD Encounter for immunization (Primary Dx); Routine history and physical examination of adult; Evaluation of hearing impairment; Hypercholesterolemia 08/18/2024 Travel 08/18/2024 Telephone [facility] [address] [place] [address] Ayala Capps MD Chart Prep 08/11/2024 Patient Outreach [facility] [address] [place] [address] Ayala Capps MD Pre-visit Planning ([facility] unable to reach [facility]) 07/06/2024 Refill [facility] [address] [place] [address] Cecilia Tolbert MD from Last 3 Months Immunizations Name Administration Dates Next Due Hep B, adult 11/01/2019,08/16/2019,07/08/2019 Influenza High-dose Quadriva lent Preservative Free 05/17/2022,06/19/2020 Influenza Quadrivalent Adjuvanted 05/18/2021 Influenza, IIV3, injectable 06/04/2018 Influenza, seasonal, injecta ble, preservative free 08/19/2024 Pneumococcal Conjugate PCV 13 09/15/2018 Tdap 12/20/2015 Zoster, Recombinant 12/23/2018 Zoster, live 05/18/2015 Family History Medical History Relation Name Comments Mental illness Brothgwyn Mosquera Cancer Father Dad Heart disease Maternal Grandfather [...] Pressure 108/76 09/02/2024 9:01 AM EST Pulse 68 08/19/2024 9:39 AM EST Temperature 28.3 ??C (83 ??F) 09/02/2024 9:01 AM EST Respiratory Rate 20 08/19/2024 9:39 AM EST Oxygen Saturation 97% 08/19/2024 9:39 AM EST Inhaled Oxygen Concentration - - Weight 61.7 kg (136 lb) 08/19/2024 9:39 AM EST Height 159.4 cm (5' 2.75 ) 08/19/2024 9:39 AM ES T Body Mass Index 24.28 08/19/2024 9:39 AM EST Plan of Treatment Upcoming Encounters Date Type Department Care Team (Late st Contact Info) Description 09/21/2024 9:00 AM EST Office Visit [facility] ADULT DENTAL [address] [place] [address] Mckenna Rivas, DDS [address] [place] [address] 03/08/2025 9:00 AM EDT Office Visit [facility] DENTAL [address] [place], [place] [phone] Alyssa Gann [address] [place], [place] [phone] Health Maintenance Due Date Last Done Comments [...] 12/23/2018, 04/21 Dental Oral Exam 07/12/2022 01/09/2022 COVID-19 Vaccine ( season) 2024 05/17/2022, 05/18/2021, 11/02/2020, Additional history exists Dental X-Ray: Full Mouth 01/10/2025 01/09/2022 Dental Prophylaxis 03/03/2025 09/02/2024, 0 02/04/2024, 06/30/2023, Additional history exists Alcohol/Substance Use Screening 08/19/2025 08/19/2024 Depression Screening 08/19/2025 08/19/2024, 08/19/19 SDOH Screening 08/19/2025 08/19/2024 Tobacco Screening 08/19/2025 08/19/2024 Dental X-Ray: Bitewings 09/03/2025 09/02/19, 03/04/2023, 09/16/2022, Additional history exists DTaP/Tdap/Td Vaccines (2 - Td or Tdap) [...] Procedure Name Priority Date/Time Associated Diagnosis Comments INTRAORAL - PERIAPICAL EACH ADDITIONAL RADIOGRAPHIC IMAGE Routine 09/02/2024 9:00 AM EST INTRAORAL - PERIAPICAL FIRST RADIOGRAPHIC IMAGE Routine 09/02/2024 9:00 AM EST BITEWINGS - 2 RADIOGRAPHIC IMAGES Routine 09/02/2024 9:00 AM EST PROPHYLAXIS - ADULT Routine 09/02/2024 9 :00 AM EST CASE PRESENTATION, DETAILED AND EXTENSIVE TREATMENT PLANNING Routine 09/02/2024 9:00 AM EST VITAMIN D,25-OH,TOTAL,IA Routine 08/19/2024 10:17 AM EST Encounter for immunization Routine history and physical examination of adult HEPATIC FUNCTION PANEL Routine 08/19/2024 10:17 AM EST Encounter for immunization Routine history and physical examination of adult TSH W/REFLEX TO FT4 Routine 08/19/2024 1 0:17 AM EST Encounter for immunization Routine history and physical examination of adult LIPID PANEL, STANDARD Routine 08/19/2024 10:17 AM EST Encounter for immunization Routine history and physical examination of adult CBC WITH AUTO DIFFERENTIAL Routine 08/19/2024 10:17 AM EST Encounter for immunization Routine history and physical examination of adult BASIC METABOLIC PANEL, FASTING Routine 08/19/2024 10:17 AM EST Encounter for immunization Routine history and physical examination of adult BI MAMMOGRAM SCREEN W FLORENCIO W IMPLANTS LUIS Routine 01/21/2024 9:08 AM EDT HM COLONOSCOPY Routine 12/19/2023 from Last 3 Months or Most Recently Relevant to Health Maintenance Results * (ABNORMAL) Basic Metabolic Panel, Fasting (08/19/2024 10:17 AM EST) Sodium 140 135 - 145 mmol/L [facility] Potassium 4.1 3.3 - 5.1 mmol/L [facility] Chloride 106 96 - 108 mmol/L [facility] Carbon Dioxide 29 22 - 29 mmol/L [facility] Anion Gap 9(L) 12 - 20 [facility] Urea Nitrogen (BUN) 14 9 - 16 mg/dL [facility] Creatinine, Serum 0.56 0.5 - 1.4 mg/dL [facility] Estimated Glomerular Filt Rate >60 [facility] Comment:Chronic Kidney Disea se: Estimated GFR < 60 mL/min/1.10f4Duskka Kidney Disease: Estimated GFR < 15 mL/min/1.73m2 Glucose Fasting 92 60 - 99 mg/dL [facility] Calcium 9.0 8.4 - 10.2 mg/dL [facility] Blood Venous blood specimen / Unknown 08/19/2024 10:17 AM EST 08/19/2024 2:01 PM EST us Ayala Capps MD LAB BLOOD ORDERABLES Final Re sult [facility] [address] [place] [address] [phone] * Vitamin D, 25-Hydroxy, Total, Immunoassay (08/19/2024 10:17 AM EST) Vitamin D 25-OH Total 64.3 >30 ng/mL [facility] Comment:Health Based Referen ce Values*< 20 ng/mL Bdctcxvsz47-27 ng/mL Insufficient> 30 ng/mL Sufficient*Ping TARANGO. N Engl J Med. 2007;357:266-280Care must be taken in interpreting Vitamin D results fromdifferent laboratories and methodologies. Published datademonstrated that results from patients undergoinghemodialysis may show a negative bias when tested withvarious automated 25-OH vitamin D assays when compared toLC-MS/MS.When testing samples from patients whose predominant form ofVitamin D is Vitamin D2, such as patients receiving VitaminD2 supplementation, results that are subtherapeutic shouldbe confirmed with another method such as LC-MS/MS. Blood Venous blood specimen / Unknown 08/19/2024 10:17 AM EST 08/19/2024 2:01 PM EST Ayala Capps MD LAB BLOOD ORDERABLES Final Re sult Performing Organization Address City/[facility]/ZIP Co de Phone Number [facility] [address] [place] [phone] * TSH W/Reflex to FT4 (08/19/2024 10:17 AM EST) TSH reflex Free T4 1.22 0.32 - 4.0 uIU/mL [facility] Blood Venous blood specimen / Unknown 08/19/2024 10:17 AM EST 08/19/2024 2:01 PM EST Ayaal Capps MD LAB BLOOD ORDERABLES Final Re sult [facility] [address] [place] [phone] * CBC auto differential (08/19/2024 10:17 AM EST) White Blood Count 5.3 4.8 - 10.8 X10*3/uL [facility] Red Blood Count 4.30 4.20 - 5.50 X10*6/uL [facility] Hemoglobin 13.4 12.0 - 16.0 g/dl [facility] Hematocrit 41.0 37.0 - 47.0 % [facility] Mean Corpuscular Volume 95.3 80.0 - 98.0 fL [facility] Mean Corpuscular Hemoglobin 31.2 27.0 - 33.0 pg [facility] Mean Corpuscular HGB Conc 32.7 31.0 - 35.0 g/dl [facility] Red Cell Distribution Width 12.5 11.0 - 16.0 % [facility] Platelet Count 258 160 - 400 X10*3/uL [facility] Mean Platelet Volume 10.6 9.4 - 12.3 fL [facility] Neutrophils Percent Auto 55.0 45 - 73 % [facility] Imm Gran Pct Auto 0.2 0.0 - 0.4 % [facility] Lymphocytes Percent Auto 32.5 20 - 40 % [facility] Monocytes Percent Auto 9.9 2 - 11 % [facility] Eosinophils Percent Auto 1.5 0 - 4 % [facility] Basophils Percent Auto 0.9 0 - 2 % [facility] NRBC Pct Auto 0.0 0.0 - 0.2 /100WBC [facility] Neutrophils Absolute Auto 2.9 2.0 - 8.3 x10*3/uL [facility] Imm Gran Abs Auto 0.01 0.00 - 0.03 X10*3/uL [facility] Lymphocytes Absolute Auto 1.7 1.2 - 4.9 X10*3/uL [facility] Monocytes Absolute Auto 0.5 0.1 - 1.2 X10*3/uL [facility] Eosinophils Absolute Auto 0.1 0.0 - 0.4 X10*3/uL [facility] Basophils Absolute Auto 0.1 0.0 - 0.2 X10*3/uL [facility] NRBC Abs Auto 0.000 0.0 - 0.012 X10*3/uL [facility] Blood Venous blood specimen / Unknown 08/19/2024 10:17 AM EST 08/19/2024 1:58 PM EST Ayala Capps MD LAB BLOOD ORDERABLES Final Re sult Performing Organization Address [facility] Co de Phone Number [facility] [address] [place] [phone] * Hepatic Function Panel (08/19/2024 10:17 AM EST) Bilirubin, Total 0.3 0.0 - 1.0 mg/dL [facility] Bilirubin, Direct 0.2 0.0 - 0.5 mg/dL [facility] Aspartate Amino Transferase 24 5 - 31 U/L [facility] Alanine Aminotransferase 27 0 - 31 U/L [facility] Total Protein 6.9 6.5 - 8.0 g/dL [facility] Albumin Level 4.1 3.5 - 5.0 g/dL [facility] Alkaline Phosphatase 69 39 - 117 U/L [facility] Blood Venous blood specimen / Unknown 08/19/2024 10:17 AM EST 08/19/2024 2:01 PM EST Ayala Capps MD LAB BLOOD ORDERABLES Final Re sult Performing Organization Address City/[facility] Co de Phone Number [facility] [address] [place] [phone] * (ABNORMAL) Lipid Panel, Standard (08/19/2024 10:17 AM EST) Triglycerides 84 <150 mg/dL [facility] Comment:Desirable Triglyceri de: less than 150 mg/dLBorderline High Triglyceride 150-199 mg/dLHigh Triglyceride: 200-499 mg/dLVery High Triglyceride: greater than or equal to 5OO mg/dL Cholesterol 203(H) <200 mg/dL [facility] Comment:Desirable Cholestero l: less than 200 mg/dLBorderline High Cholesterol: 200-239 mg/dLHigh Cholesterol: greater than 239 mg/dL LDL Cholesterol Calculated 95 <100 mg/dL [facility] Comment:Desirable LDL: less than 100 mg/dLNear Optimal/Above Optimal LDL: 110- 129 mg/dLBorderline High LDL: 130-159 mg/dLHigh LDL: 160-189 mg/dLVery High LDL: greater than or equal to 190 mg/dL HDL Cholesterol 92 >40 mg/dL [facility] Comment:Desirable HDL: great er than 40 mg/dL Note: This HDL assay may give artificially low results in patients with liver disease. Blood Venous blood specimen / Unknown 08/19/2024 10:17 AM EST 08/19/2024 2:01 PM EST us Ayala Capps MD LAB BLOOD ORDERABLES Final Re sult Performing Organization Address City/State/[facility] Co de Phone Number [facility] [address] [place] [phone] * BI Mammogram Screen w/ Florencio w/ Implants Luis (01/21/2024 9:08 AM EDT) Anatomical Region Laterality Modality Mammography 01/21/2024 9:08 AM EDT Narrative 02/18/2024 2:36 PM EDT ? [facility] [place] ? [address] [facility] ?[place] [address] ? Mammography Report ? Signed ? Patient: Brandon,Ilda A ?MR#: [id number] ?? 01 ? : 1950 ?Acct:[id number] ? Age/Sex: 73 / F ?ADM Date: 07/03/24 ? Loc: HO.MAMMO ? Attending Dr: Cecilia Tolbert MD ? Ordering Physician: Cecilia Tolbert MD ?Results: 2Beni ?? gn Findings ? Date of Service: 01/21/24 ?Follow Up: 1 Year From Orig ?? inal Mammogram ? Procedure(s): MM tomosynthesis screen imp BI ?? Accession Number(s): [id number] ? cc: Cecilia Tolbert MD ? EXAMINATION: ?? MM SCREENING DIGITAL BREAST TOMOSYNTHESIS, BILATERAL ? CLINICAL INFORMATION: ? Screening. Asymptomatic. ? COMPARISON: ?? Mammography: This study is compared with prior exams dating back to ?? 2018. ? TECHNIQUE: ?? Digital mammography is performed [...] by Cathy Burton MD in OV> ? 02/18/24 1433 ? DD/ 0908 ? TD/TT: ? Canvas Baster Jumpbasting: ? Procedure Note Donotuseinterpreter, Image - 02/18/2024 [facility] [address] [place], [place] [address] Mammography Report Signed Patient: Ilda Taylor AMR#: [id number] 01 : 1950cct:[id number] Age/Sex: 73 / FADM Date: 01/21/24 Loc: HO.MAMMO Attending Dr: Cecilia Tolbert MD Ordering Physician: Cecilia Tolbert MDResults: 2Beni gn Findings Date of Service: 01/21/24Follow Up: 1 Year From Orig inal Mammogram Procedure(s): MM tomosynthesis screen imp BI Accession Number(s): [id number] cc: Cecilia Tolbert MD EXAMINATION: MM SCREENING [...] in OV> 02/18/24 1433 DD/ 0908 TD/TT: Canvas Baster Jumpbasting: us Cecilia Tolbert MD IMG BI PROCEDURES Final Resul t * Hm Colonoscopy (12/19/2023) Colonoscopy Normal Normal us Ayala Capps MD HEALTH MAINTENANCE Final Resu lt from Last 3 Months or Most Recently Relevant to Health Maintenance Insurance [address] [place] [address] [facility] HSN FULL DENTAL - HSN FULL (MEDICAID) # [address] [place] [address] # [address] [facility] [place] [address] # [address] [place] [address] Care Teams Lime Kiln Worker Relationship Specialty Start Date End Date Ayala Capps MD [address] [place] [address] [place] [address] PCP - General Family Medicine 07/21/18
--- OUTSIDE RECORDS SUMMARY | 2024-09-20 12:23 | XMS_ITS | Encounter Summary ---
Author Organization [employer] Address 75 [facility] 7t [place] [address] Care Team Providers Care Inspector Machined Parts Name Role Phone Ayala Capps MD Primary Care Provider [phone] Encounter Details Date Type Department Care Team (Latest Contact Info) Description 12/01/2020 Abstract [facility] CONVERSIONS Dental, Provider, DDS Social [...] Description 09/21/2024 9:00 AM EST Office Visit [facility] ADULT D[facility]AL [address] [place] [address] Mckenna Rivas DDS [address] [place], [place] [phone] 03/08/2025 9:00 AM EDT Office Visit [facility] [address] [place], [place] [phone] Alyssa Gann [address] [place], [place] [phone] documented as of this encounter Visit Diagnoses Not on filedocumented in this encounter Care Teams Inspector Machined Parts Relationship Specialty Start Date End Date Ayala Capps MD [address] [place] [phone] PCP - General Family Medicine 07/21/18 documented as of this encounter
--- OUTSIDE RECORDS SUMMARY | 2024-09-20 12:23 | XMS_ITS | Encounter Summary ---
Author Organization [employer] Address [address] [facility] 7t [place] [address] Care Team Providers Care Primary Care Coordinator Name Role Phone Ayala Capps MD Primary Care Provider [phone] Encounter Details Date Type Department Care Team (Latest Contact Info) Description 08/16/2019 Abstract [facility] CONVERSIONS Dental, Provider, DDS Social History Tobacco [...] Description 09/21/2024 9:00 AM EST Office Visit [facility] CHC ADULT DENTAL [address] [place] [address] Mckenna Rivas DDS [address] [place], [place] [phone] 03/08/2025 9:00 AM EDT Office Visit [facility]H DENTAL [address] [place], [place] [phone] Alyssa Gann 91 [place] [address] documented as of this encounter Visit Diagnoses Not on filedocumented in this encounter Care Teams Primary Care Coordinator Relationship Specialty Start Date End Date Ayala Capps MD [address] [place] [address] PCP - General Family Medicine 07/21/18 documented as of this encounter
--- OUTSIDE RECORDS SUMMARY | 2024-09-20 12:23 | XMS_ITS | Encounter Summary ---
Author Organization [employer] Address 75 [facility] 7t [place] [address] Care Team Providers Care Lab Coordinator Name Role Phone Ayala Capps MD Primary Care Provider [phone] Reason for Visit * Reason Comments Med Refill Encounter Details Date Type Department Care Team (Late Contact Info) Description 08/24/2022 Refill [facility] MEDICINE 230 [place] [address] Ayala Capps MD 505 [place], [place] [phone] Arthritis (Primary Dx) Social History Tobacco Use [...] Description 09/21/2024 9:00 AM EST Office Visit [facility] CHC ADULT DENTAL 505 [place], [place] [phone] Mckenna Rivas DDS 230 [place] [address] 03/08/2025 9:00 AM EDT Office Visit [facility] DENTAL 91 [place], [place] [phone] Alyssa Gann 91 [place], [place] [phone] documented as of this encounter Visit Diagnoses Diagnosis Arthritis- Primary Unspecified arthropathy, site unspecified documented in this encounter Care Teams Lab Coordinator Relationship Specialty Start Date End Date Ayala Capps MD [address] [place] [address] PCP - General Family Medicine 07/21/18 documented as of this encounter
--- OUTSIDE RECORDS SUMMARY | 2024-09-20 12:23 | XMS_ITS | Encounter Summary ---
Author Organization [employer] Address [address] [facility] [address] 7t [place] [address] Care Team Providers Care Drawing Tender Name Role Phone Ayala Capps MD Primary Care Provider [phone] Encounter Details Date Type Department Care Team (Latest Contact Info) Description 08/26/2024 Travel Social History Tobacco Use Types Packs/Day [...] Description 09/21/2024 9:00 AM EST Office Visit [facility] ADULT DENTAL 505 [place] [address] Mckenna Rivas DDS 230 [place] [address] 03/08/2025 9:00 AM EDT Office Visit [facility] DENTAL 91 [place], [place] [phone] Alyssa Gann 91 [place] [address] documented as of this encounter Visit Diagnoses Not on filedocumented in this encounter Additional Health Concerns Assessment Noted Time PHQ-9 Depression Total Score: 2 08/19/19 25 10:08 AM EST documented as of this encounter Care Teams Drawing Tender Relationship Specialty Start Date End Date Ayala Capps MD 505 [place] [address] PCP - General Family Medicine 07/21/18 documented as of this encounter
--- OUTSIDE RECORDS SUMMARY | 2024-09-20 12:23 | XMS_ITS | Encounter Summary ---
Author Organization [employer] Address 75 [facility] 7t [place] [address] Care Team Providers Care Basket Filler Name Role Phone Ayala Capps MD Primary Care Provider [phone] Reason for Visit * Reason Comments Med Change Request Encounter Details Date Type Department Care Team ([facility] Contact Info) Description 02/20/2023 Refill [facility] CHC MED & PEDS 505 [place] [address] Cecilia Tolbert MD 505 [place] [address] Social History Tobacco Use Types Packs/Day Years [...] Upcoming Encounters Date Type Department Care Team ([facility] Contact Info) Description 09/21/2024 9:00 AM EST Office Visit [facility] ADULT DENTAL 505 [place] [address] Mckenna Rivas DDS 230 [place] [address] 03/08/2025 9:00 AM EDT Office Visit [facility] DENTAL 91 [place], [place] [phone] Alyssa Gann 91 [place], [place] [phone] documented as of this encounter Visit Diagnoses Not on filedocumented in this encounter Care Teams Basket Filler Relationship Specialty Start Date End Date Ayala Capps MD 505 [place] [address] PCP - General Family Medicine 07/21/18 documented as of this encounter
--- OUTSIDE RECORDS SUMMARY | 2024-09-20 12:23 | XMS_ITS ---
Author Organization [facility] Address [address] [place] [phone] Care Team Providers Care Ward Assistant Name Role Phone Jefry SMITH, Ayala Primary Care Provider Dominick Teixeira Jr REASON FOR VISIT wanting results Encounters Encounter Location Date Provider Diagnosis [facility] [address] [place] [address] 12/02/2023 Dominick Vargas Jr PLAN OF TREATMENT No Information
--- OUTSIDE RECORDS SUMMARY | 2024-09-20 12:24 | XMS_ITS | Encounter Summary ---
Author Organization [employer] Address [address] [facility] 7t [place] [address] Care Team Providers Care Lap Grinder Name Role Phone Ayala Capps MD Primary Care Provider [phone] Encounter Details Date Type Department Care Team (Late Contact Info) Description 05/26/[address] [facility] MEDICINE 230 [place] [address] Ayala Capps MD 505 [place] [address] Social History Tobacco Use Types Packs/Day Years [...] Description 09/21/2024 9:00 AM EST Office Visit [facility] CHC ADULT DENTAL 505 [place] [address] Mckenna Rivas DDS 230 [place] [address] 03/08/2025 9:00 AM EDT Office Visit [facility] DENTAL 91 [place], [place] [phone] Azeem Alyssa 91 [place], [place] [phone] documented as of this encounter Procedures Procedure Name Priority Date/Time Associated Diagnosis Comments COLONOSCOPY Routine 09/04/2018 documented in this encounter Results * Hm Colonoscopy (09/04/2018) Colonoscopy Normal Normal Narrative RossyRossy combs - 09/04/2018 Recommended 10 year follow up Historical Provider HEALTH MAINTENANCE Final Result documented in this encounter Visit Diagnoses Not on filedocumented in this encounter Care Teams Lap Grinder Relationship Specialty Start Date End Date Ayala Capps MD [address] [place] [address] PCP - General Family Medicine 07/21/18 documented as of this encounter
== END 2024-09-20 10:37 | disposition home or self-care (01) ==
LOC: HO.SH 10:36
PROVIDERS: Visit Provider Pediatrics
DX: Z01.118 Encounter for examination of ears and hearing with other abnormal findings (principal); H90.3 Sensorineural hearing loss, bilateral
CPT/HCPCS: 92557

== ENCOUNTER 2025-02-17 14:44 | Outpatient (REF) | payer MEDICARE, SELFPAY ==
--- OUTSIDE RECORDS SUMMARY | 2025-02-17 14:48 | XMS_ITS | Encounter Summary ---
Author Organization [employer] Address [address] [place] [address] 7t [place] [address] Care Team Providers Care Municipal Firefighter Name Role Phone Ayala Capps MD Primary Care Provider [phone] Encounter Details Date Type Department Care Team (Late st Contact Info) Description 02/06/2023 Orders Only [facility] MED & PEDS 505 [place] [address] Ayala Capps MD 505 [place] [address] Social History Tobacco Use Types Packs/Day Years Used Date Smoking Tobacco: Never Smokeless Tobacco: Never Comments Unknown Sex and Gender Information Value Date Recorded Sex Assigned at Female 05/20/2022 10:17 AM EDT Legal Sex Female 10:17 AM EDT Gender Identity Female 10/21/2024 8:38 AM EDT Sexual Orientation Straight 09/09/2022 4: 32 PM EST documented as of this encounter Plan of Treatment Upcoming Encounters Date Type Department Care Team (Late Contact Info) Description 03/08/2025 9:00 AM EDT Office Visit [facility] DENTAL 91 [place], [place] [phone] Alyssa Gann 91 [place], [place] [phone] 03/18/2025 9:00 AM EDT Office Visit [facility] CHC MED & PEDS 505 [place], [place] [phone] Ayala Cpaps MD 505 [place] [address] 03/29/2025 10:00 AM EDT Procedure Visit [facility] MEDICINE 230 [place], [place] [phone] rPetty Damian CNM 230 [place], [place] [phone] documented as of this encounter Visit Diagnoses Not on filedocumented in this encounter Care Teams Municipal Firefighter Relationship Specialty Start Date End Date Ayala Capps MD 505 [place] [address] PCP - General Family Medicine 07/21/18 documented as of this encounter
--- OUTSIDE RECORDS SUMMARY | 2025-02-17 14:48 | XMS_ITS | Patient Health Record ---
Author Organization [facility] Address [address] [place] [phone] Care Team Providers Care Desizing Machine Back Tender Name Role Phone Jefry SMITH, Ayala Primary Care Provider Dominick Teixeira Jr Unavailable Allergies No Known Allergies Reason For Referral No Information Medications Medication SIG (Take, Route, Frequency, Duration) Notes [...] C 500 MG as directed Orally Active Immunizations Vaccine Route Administration Date Status Comme nts Influenza Unknown 06/04/2018 Administered Influenza Unknown 11/24/2023 Refused Social History Tobacco Use: Social History Observation Description Date Details (start date - stop date) Former Smoker NA - NA Tobacco Use/Smoking Question Answer Notes Patient is [...] Never (0 point) Points 2 Interpretation Negative Problems Problem Type SNOMED Code ICD Code Onset Dates Problem Status W/U Status Risk Notes Problem 253073964 Colon cancer screening (Z12.11) Active confirmed Problem 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) Active confirmed Problem 587936518 FH: colon cancer (Z80.0) Active confirmed Problem 09011587 Change in bowel movement (R19.8) Active confirmed Plan Of Treatment Pending Test Test Name Order Date OVA & PARASITES (O&P) 11/24/2023 STOOL WBC 11/24/2023 GI PANEL 11/24/2023 Future Test Test Name Order Date COLONOSCOPY 06/04/2018 COLONOSCOPY 11/24/2023 Insurance Providers Payer Name Payer Address Payer Phone Subscriber Number Group Number Insured Name Patient Relationship to Insured Coverage Start Date Coverage End Date [facility] [address] Attn Claims LORETTA Fernandez [id number] JULIANNA RODRIGUEZ Self - patient is the insured Medical (General) History Medical History History ICD Code asthma/seasonal elevated cholesterol Surgical History Surgery Date(Month/Year) hysterectomy 2015 Bladder sling 2015 breast augmentation 1995 tubal ligation 1991 left knee replacement 08/12/23
== END 2025-02-17 14:45 | disposition home or self-care (01) ==
LOC: HO.MAMMO 14:44
PROVIDERS: PCP Pediatrics; Visit Provider Family Medicine
DX: Z12.31 Encounter for screening mammogram for malignant neoplasm of breast (principal)
CPT/HCPCS: 77063; 77067

== ENCOUNTER → 2025-02-17 16:15 | Outpatient (BNV) | payer MEDICARE, SELFPAY | PROVIDERS: PCP Pediatrics; Visit Provider Internal Medicine | DX: Z12.31 Encounter for screening mammogram for malignant neoplasm of breast (principal) | CPT/HCPCS: 77063; 77067 ==

== ENCOUNTER 2025-03-14 07:49 | Outpatient (REF) | payer MEDICARE, SELFPAY ==
--- NOTE | ~2025-03-14 | MM_ITS ---
EXAMINATION: MM DIAGNOSTIC DIGITAL BREAST TOMOSYNTHESIS, RIGHT CLINICAL INFORMATION: Callback from screening for right breast asymmetry in the superior breast anterior depth seen on MLO view. COMPARISON: Comparison made to multiple prior, most recent February 17, 2025, and most remote November 23, 2018. TECHNIQUE: Digital breast tomosynthesis is performed in full-field ML 90 degrees along with computer-aided detection (CAD). Synthesized 2D images are generated from the tomosynthesis. Spot compression tomosynthesis images were also obtained. All images were obtained with implants displaced. FINDINGS: BREAST COMPOSITION: There are scattered areas of fibroglandular density (ACR BI-RADS breast composition Category b). RIGHT BREAST: Images were obtained with displaced implants. Previously suggested asymmetry in the superior breast anterior depth is pliable on today's images, and local parenchyma has similar appearance to multiple prior studies as far back as 2018, likely representing overlapping fibroglandular breast tissue. MM/MM tomosynthesis added views R IMPRESSION: RIGHT BREAST: Negative, no mammographic evidence of malignancy. Normal interval follow-up is recommended in 12 months. ASSESSMENT: BI-RADS 1 - Negative RECOMMENDATION: 1 year F/U Results were provided to the patient at time of visit by the technologist. This patient's information was entered into a reminder system with a target due date for their next mammogram. Electronically signed by: Luz Marina Martinez MD 03/14/2025 08:40 AM EDT
--- OUTSIDE RECORDS SUMMARY | 2025-03-14 07:53 | XMS_ITS | Patient Health Record ---
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.82) Active confirmed Problem 646491682 FH: colon cancer (Z80.0) Active confirmed Problem 96886166 Change in bowel movement (R19.8) Active confirmed Plan Of Treatment Pending Test Test Name Order Date OVA & PARASITES (O&P) 11/24/2023 STOOL WBC 11/24/2023 GI PANEL 11/24/2023 Future Test Test Name Order Date COLONOSCOPY 06/04/2018 COLONOSCOPY 11/24/2023 Insurance Providers Payer Name Payer Address Payer Phone Subscriber Number Group Number Insured Name Patient Relationship to Insured Coverage Start Date Coverage End Date [facility] [address] Attn Claims LORETTA Fernandez [id number] JULIANNA RODRIGUEZ Self - patient is the insured Medical (General) History Medical History History ICD Code asthma/seasonal elevated cholesterol Surgical History Surgery Date(Month/Year) hysterectomy 2015 Bladder sling 2015 breast augmentation 1995 tubal ligation 1991 left knee replacement 08/12/23
--- OUTSIDE RECORDS SUMMARY | 2025-03-14 07:53 | XMS_ITS | Encounter Summary ---
Author Organization [employer] Address [address] [facility] 7t [place] [address] Care Team Providers Care Shuttleless Loom Weaver Name Role Phone Ayala Capps MD Primary Care Provider [phone] Reason for Visit * Reason Onset Date Comments Results 03/03/2025 Encounter Details Date Type Department Care Team ([facility] Contact Info) Description 03/03/2025 Results Follow-Up [facility] CHC MED & PEDS 505 [place] [address] Ayala Capps MD 505 [place] [address] BI Mammogram Screen w/ Florencio w/ Implants Luis Social History Tobacco Use Types Packs/Day Years [...] the past 12 months, has t he eReceipts, gas, oil or water [employer] threatened to shut off services in your [...] as of this encounter Progress Notes * Cecilia Tolbert MD - 03/11/2025 4:31 PM EDT Can we please followup status of repeat magen documented in this encounter Miscellaneous Notes * Telephone Encounter - Loreta Evangelista RN - 03/03/2025 9:53 AM EDT TC to pt. Pt is aware she needs additional imaging but has not heard from [facility]. RN tells pt she will follow up. Pt verbalizes understanding and agreement with the plan of care. TC to [facility]. They state they do not need an order from us, they have standing orders they just have not called the pt yet. RN verbalizes understanding. ----- Message from Ayala Capps MD sent at 03/03/2025 8:59 AM EDT ----- Please make sure patient has been contacted by radiology department for additional imaging as notedin her mammogram report.Thanks ----- Message ----- From: Interface, Ris Results In Sent: 03/01/2025 9:13 AM EDT To: Ayala Capps MD documented in this encounter Plan of Treatment Upcoming Encounters Date Type Department Care Team (Late st Contact Info) Description 03/18/2025 9:00 AM EDT Office Visit [facility] CHC MED & PEDS [address] [place] [address] Ayala Capps MD 505 [place] [address] 04/05/2025 2:15 PM EDT Procedure Visit [facility] MEDICINE [address] [place] [address] Pretty Damian CNM [address] [place] [address] documented as of this encounter Visit Diagnoses Not on filedocumented in this encounter Additional Health Concerns Assessment Noted Time PHQ-9 Depression Total Score: 2 08/19/19 25 10:08 AM EST documented as of this encounter Care Teams Shuttleless Loom Weaver Relationship Specialty Start Date End Date Ayala Capps MD 505 [place] [address] PCP - General Family Medicine 07/21/18 documented as of this encounter
== END 2025-03-14 07:50 | disposition home or self-care (01) ==
LOC: HO.MAMMO 07:49
PROVIDERS: PCP Family Medicine; Visit Provider Family Medicine
DX: N64.89 Other specified disorders of breast (principal)
CPT/HCPCS: 77061; 77065

== ENCOUNTER → 2025-03-14 08:00 | Outpatient (BNV) | payer MEDICARE, SELFPAY | PROVIDERS: PCP Family Medicine; Visit Provider Radiology Body Imaging | DX: R92.8 Other abnormal and inconclusive findings on diagnostic imaging of breast (principal) | CPT/HCPCS: 77065; G0279 ==

== ENCOUNTER 2025-03-18 09:34 | Outpatient (REF) | payer MEDICARE, SELFPAY ==
--- OUTSIDE RECORDS SUMMARY | 2023-12-19 07:20 | XMS_ITS ---
Author Organization [facility] Address [address] [place] [id number] Care Team Providers Care Sample Prep Technician Name Role Phone Jefry SMITH, Ayala Primary Care Provider Dominick Teixeira Jr [phone] REASON FOR VISIT screening, fam hx colon ca Encounters Encounter Location Date Provider Diagnosis [facility] [address] [place] [id number] 12/19/2023 Dominick Vargas Jr Encounter for screening colonoscopy Z12.11 and Colon polyps K63.5 Assessments Encounter Date Diagnosis (ICD Code) Assessment Notes Treatment Notes Treatment Clinical Notes Section Notes 12/19/2023 Encounter for screening colonoscopy (ICD-10 - Z12.11) 12/19/2023 Colon polyps (ICD-10 - K63.5) Plan Of Treatment No Information Progress Notes * JULIANNA RODRIGUEZ ADOB: 3 (74 yo F)Acc No.[id number]:12/19/2023 COLON WITH MAC Patient: JULIANNA JORGENSEN Provider: Erick Vargas MD :1950 A ge:73 Y S ex:Female Date:12/19/2023 Address:[address] [place] [address], [id number] Pcp:Ayala Capps MD Subjective: * Chief Complaints: * 1 . Screening, fam hx colon ca. * Medical History: Objective: * Vitals: Assessment: * Assessment: 1. E ncounter for screening colonoscopy - Z12.11 (Primary) 2 . C olon polyps - K63.5 Plan: * Treatment: * Procedure Codes: 4 5380 COLONOSCOPY AND BIOPSY * * The named appointment provid er may or may not be the originator of this progress note, and it is not deemed complete until electronically signed by the appointment provider. Sign off status: Pending * Provider: Erick Vargas MD Date: 0 12/19/2023 Generated for Michael mckeon/Gloria/Rosendaitting on: 0 03/18/2025 08:54 AM EDT
--- OUTSIDE RECORDS SUMMARY | 2025-03-18 09:00 | XMS_ITS | Encounter Summary ---
Author Organization [employer] Address [address] [facility] 7t [place] [address] Care Team Providers Care Customer Quality Specialist Name Role Phone Ayala Capps MD Primary Care Provider [phone] Encounter Details Date Type Department Care Team (Latest Contact Info) Description 03/18/2025 9:00 AM EDT Office Visit [facility] MED & PEDS 505 [place] [address] Ayala Capps MD 505 [place] [address] Hypercholesterolemia (Primary Dx); Seasonal allergic rhinitis, unspecified trigger; Polyp of colon, unspecified part of colon, unspecified type Social History Tobacco Use Types Packs/Day Years [...] Sign Reading Time Taken Comments Blood Pressure 102/68 03/18/2025 8:58 AM EDT Pulse 58 03/18/2025 8:58 AM EDT Temperature 36.9 C (98.5 F) 03/18/2025 8:58 AM EDT Respiratory Rate 16 03/18/2025 8:58 AM EDT Oxygen Saturation - - Inhaled Oxygen Concentration - - Weight 59.4 kg (131 lb) 03/18/2025 8:58 AM EDT Height - - Body Mass Index 23.39 01/28/2025 2:03 PM EDT documented in this encounter Plan of Treatment Upcoming Encounters Date Type Department Care Team (Late st Contact Info) Description 04/05/2025 2:15 PM EDT Procedure Visit [facility] MEDICINE [address] [place] [address] Pretty Damian CNM [address] [place], [place] [phone] Scheduled Orders Name Type Priority Associated Diagnoses Orde r Schedule Lipid Panel, Standard Lab Routine Hypercholesterolemia Expected: 03/18/2025 (Approximate), Expires: 03/18/2026 documented as of this encounter Visit Diagnoses Diagnosis Hypercholesterolemia- Primary Pure hypercholesterolemia Seasonal allergic rhinitis, unspecified trigger Polyp of colon, unspecified part of colon, unspecified type documented in this encounter Additional Health Concerns Assessment Noted Time PHQ-9 Depression Total Score: 2 08/19/19 25 10:08 AM EST documented as of this encounter Care Teams Customer Quality Specialist Relationship Specialty Start Date End Date Ayala Capps MD [address] [place] [address] PCP - General Family Medicine 07/21/18 documented as of this encounter
--- OUTSIDE RECORDS SUMMARY | 2025-03-18 10:22 | XMS_ITS | Encounter Summary ---
Author Organization [employer] Address [address] 7t [place] [address] Care Team Providers Care Irrigation Equipment Mechanic Name Role Phone Ayala Capps MD Primary Care Provider [phone] Encounter Details Date Type Department Care Team (Latest Contact Info) Description 03/17/2025 Travel Social History Tobacco Use Types Packs/Day [...] Description 04/05/2025 2:15 PM EDT Procedure Visit [facility] MEDICINE [address] [place] [address] Pretty Damian CNM [address] [place] [address] documented as of this encounter Visit Diagnoses Not on filedocumented in this encounter Additional Health Concerns Assessment Noted Time PHQ-9 Depression Total Score: 2 08/19/19 25 10:08 AM EST documented as of this encounter Care Teams Irrigation Equipment Mechanic Relationship Specialty Start Date End Date Ayala Capps MD 505 [place] [address] PCP - General Family Medicine 07/21/18 documented as of this encounter
--- OUTSIDE RECORDS SUMMARY | 2025-03-18 10:22 | XMS_ITS | Patient Health Record ---
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.82) Active confirmed Problem 885174345 FH: colon cancer (Z80.0) Active confirmed Problem 36989309 Change in bowel movement (R19.8) Active confirmed Plan Of Treatment Pending Test Test Name Order Date OVA & PARASITES (O&P) 11/24/2023 STOOL WBC 11/24/2023 GI PANEL 11/24/2023 Future Test Test Name Order Date COLONOSCOPY 06/04/2018 COLONOSCOPY 11/24/2023 Insurance Providers Payer Name Payer Address Payer Phone Subscriber Number Group Number Insured Name Patient Relationship to Insured Coverage Start Date Coverage End Date [facility] [address] Attn Claims LORETTA Fernandez [id number] JULIANNA RODRIGUEZ Self - patient is the insured Medical (General) History Medical History History ICD Code asthma/seasonal elevated cholesterol Surgical History Surgery Date(Month/Year) hysterectomy 2015 Bladder sling 2015 breast augmentation 1995 tubal ligation 1991 left knee replacement 08/12/23
--- OUTSIDE RECORDS SUMMARY | 2025-03-18 10:22 | XMS_ITS | Encounter Summary ---
Author Organization [employer] Address 75 [facility] 7t [place] [address] Care Team Providers Care Foundation Assistant Name Role Phone Ayala Capps MD Primary Care Provider [phone] Encounter Details Date Type Department Care Team (Latest Contact Info) Description 01/14/2022 Abstract [facility] CONVERSIONS Dental, Provider, DDS Social History Tobacco [...] Description 04/05/2025 2:15 PM EDT Procedure Visit [facility] MEDICINE [address] [place] [address] Pretty Damian CNM 230 [place] [address] documented as of this encounter Visit Diagnoses Not on filedocumented in this encounter Care Teams Foundation Assistant Relationship Specialty Start Date End Date Ayala Capps MD 505 [facility] [place] [address] PCP - General Family Medicine 07/21/18 documented as of this encounter
--- OUTSIDE RECORDS SUMMARY | 2025-03-18 10:22 | XMS_ITS | Encounter Summary ---
Author Organization [employer] Address [address] [place] [address] 7t [place] [address] Care Team Providers Care Recreational Resort Manager Name Role Phone Ayala Capps MD Primary Care Provider [phone] Reason for Visit * Reason Comments Med Change Request Encounter Details Date Type Department Care Team (Late Contact Info) Description 02/20/2023 Refill [facility] CHC MED & PEDS 505 [place] [address] Cecilia Tolbert MD 505 [place] [address] Social History Tobacco Use Types Packs/Day Years [...] Description 04/05/2025 2:15 PM EDT Procedure Visit [facility] MEDICINE 230 [place] [address] Pretty Damian CNM [address] [place] [address] documented as of this encounter Visit Diagnoses Not on filedocumented in this encounter Care Teams Recreational Resort Manager Relationship Specialty Start Date End Date Ayala Capps MD [address] [place] [address] PCP - General Family Medicine 07/21/18 documented as of this encounter
--- OUTSIDE RECORDS SUMMARY | 2025-03-18 10:22 | XMS_ITS | Encounter Summary ---
Author Organization [employer] Address [address] [place] [address] Care Team Providers Care Food Safety Manager Name Role Phone Ayala Capps MD Primary Care Provider [phone] Encounter Details Date Type Department Care Team (Latest Contact Info) Description 03/18/2025 Travel Social History Tobacco Use Types Packs/Day [...] Description 04/05/2025 2:15 PM EDT Procedure Visit [facility] [address] [place] [address] Pretty Damian CNM [address] [place] [address] documented as of this encounter Visit Diagnoses Not on filedocumented in this encounter Additional Health Concerns Assessment Noted Time PHQ-9 Depression Total Score: 2 08/19/19 25 10:08 AM EST documented as of this encounter Care Teams Food Safety Manager Relationship Specialty Start Date End Date Ayala Capps MD [address] [place] [address] PCP - General Family Medicine 07/21/18 documented as of this encounter
--- OUTSIDE RECORDS SUMMARY | 2025-03-18 10:22 | XMS_ITS | Encounter Summary ---
Author Organization [email or web address] Address [address] [facility] 7[address] [place] [address] Care Team Providers Care Chief Relay Tester Name Role Phone Ayala Capps MD Primary Care Provider [phone] Reason for Visit * Reason Onset Date Comments Results 03/03/2025 Encounter Details Date Type Department Care Team ([facility] Contact Info) Description 03/03/2025 Results Follow-Up [facility] MED & PEDS [address] [place] [address] Ayala Capps MD [address] [place] [address] BI Mammogram Screen w/ Florencio w/ Implants [...] the past 12 months, has t he [employer], gas, oil or water [employer] threatened to shut off services in your [...] Telephone Encounter - Loreta Evangelista RN - 03/14/2025 11:53 AM EDT TC to [facility] women[facility]. Mammogram was taken today 03/14 at 8am. ----- Message from Cecilia Tolbert MD sent at 03/11/2025 4:32 PM EDT ----- Can we please followup status of repeat magen ----- Message ----- From: Giancarlo Ris Results In Sent: 03/01/2025 9:13 AM EDT To: Cecilia Tolbert MD * Telephone Encounter - Loreta Evangelista RN - 03/03/2025 9:53 AM EDT TC to pt. Pt is aware she needs additional imaging but has not heard from [facility]. RN tells pt she will follow up. Pt verbalizes understanding and agreement with the plan of care. TC to [facility]. They state they do not need an [...] Description 04/05/2025 2:15 PM EDT Procedure Visit [facility] [address] [place] [address] Pretty Damian CNM [address] [place] [address] documented as of this encounter Visit Diagnoses Not on filedocumented in this encounter Additional Health Concerns Assessment Noted Time PHQ-9 Depression Total Score: 2 08/19/19 25 10:08 AM EST documented as of this encounter Care Teams Chief Relay Tester Relationship Specialty Start Date End Date Ayala Capps MD [address] [place] [address] PCP - General Family Medicine 07/21/18 documented as of this encounter
--- OUTSIDE RECORDS SUMMARY | 2025-03-18 10:22 | XMS_ITS | Encounter Summary ---
Author Organization [employer] Address [address] [facility] 7t [place] [address] Care Team Providers Care Manager Consumer Insights Name Role Phone Ayala Capps MD Primary Care Provider [phone] Reason for Visit * Reason Onset Date Comments Chart Prep 03/17/2025 Encounter Details Date Type Department Care Team ([facility] Contact Info) Description 03/17/2025 Telephone [facility] [address] [place] [address] Ayala Capps MD 505 [place] [address] Chart Prep Social History Tobacco Use Types [...] 8:38 AM EDT Sexual Orientation Straight 09/09/2022 4 :32 PM EST documented as of this encounter Miscellaneous Notes * Telephone Encounter - Lacy Jiménez MA - 03/17/2025 1:11 PM EDT Chart Prep Labs: done Images: done Referrals: see referral note Vaccines due: PCV20, RSV, and Zoster Screenings: not applicable Overdue care gaps: Not applicable documented in this encounter Plan of Treatment Upcoming Encounters Date Type Department Care Team (Late st Contact Info) Description 04/05/2025 2:15 PM EDT Procedure Visit [facility] [address] [place] [address] Pretty Damian CNM [address] [place] [address] documented as of this encounter Visit Diagnoses Not on filedocumented in this encounter Additional Health Concerns Assessment Noted Time PHQ-9 Depression Total Score: 2 08/19/19 25 10:08 AM EST documented as of this encounter Care Teams Manager Consumer Insights Relationship Specialty Start Date End Date Ayala Capps MD [address] [place] [address] PCP - General Family Medicine 07/21/18 documented as of this encounter
--- OUTSIDE RECORDS SUMMARY | 2025-03-18 10:22 | XMS_ITS | Encounter Summary ---
Author Organization [employer] Address [address] [facility] 7t [place] [address] Care Team Providers Care Gambreler Name Role Phone Ayala Capps MD Primary Care Provider [phone] Encounter Details Date Type Department Care Team (Latest Contact Info) Description 12/01/[address] [facility] CONVERSIONS Dental, Provider, DDS Social History [...] Description 04/05/2025 2:15 PM EDT Procedure Visit [facility] [address] [place] [address] Pretty Damian CNM [address] [place] [address] documented as of this encounter Visit Diagnoses Not on filedocumented in this encounter Care Teams Gambreler Relationship Specialty Start Date End Date Ayala Capps MD 505 [facility] [place] [address] PCP - General Family Medicine 07/21/18 documented as of this encounter
--- OUTSIDE RECORDS SUMMARY | 2025-03-18 10:22 | XMS_ITS | Encounter Summary ---
Author Organization [employer] Address [address] [facility] 7t [place] [address] Care Team Providers Care Rehabilitation Services Director Name Role Phone Ayala Capps MD Primary Care Provider [phone] Encounter Details Date Type Department Care Team (Late Contact Info) Description 05/26/2023 Abstract [facility] [address] [place] [address] Ayala Capps MD [address] [facility] [place] [address] Social History Tobacco Use Types Packs/Day Years [...] Department Care Team (Late Contact Info) Description 04/05/2025 2:15 PM EDT Procedure Visit [facility] [address] [place], [place] [phone] Pretty Damian CNM [address] [place], [place] [phone] documented as of this encounter Procedures Procedure Name Priority Date/Time Associated Diagnosis Comments COLONOSCOPY Routine 09/04/2018 documented in this encounter Results * Colonoscopy (09/04/2018) Colonoscopy Normal Normal Narrative Rossy Blair - 09/04/2018 Recommended 10 year follow up us Historical Provider HEALTH MAINTENANCE Final Result documented in this encounter Visit Diagnoses Not on filedocumented in this encounter Care Teams Rehabilitation Services Director Relationship Specialty Start Date End Date Ayala Capps MD [address] [place], [place] [address] [address] PCP - General Family Medicine 07/21/18 documented as of this encounter
--- OUTSIDE RECORDS SUMMARY | 2025-03-18 10:22 | XMS_ITS | Encounter Summary ---
Author Organization [employer] Address [address] [facility] 7t [place] [address] Care Team Providers Care Roller Presser Operator Name Role Phone Ayala Capps MD Primary Care Provider [phone] Encounter Details Date Type Department Care Team (Latest Contact Info) Description 08/16/2019 Abstract [facility] CONVERSIONS Dental, Provider, DDS Social History Tobacco [...] Description 04/05/2025 2:15 PM EDT Procedure Visit [facility] [address] [place] [address] Pretty Damian CNM [address] [place] [address] documented as of this encounter Visit Diagnoses Not on filedocumented in this encounter Care Teams Roller Presser Operator Relationship Specialty Start Date End Date Ayala Capps MD [address] [facility] [place] [address] PCP - General Family Medicine 07/21/18 documented as of this encounter
--- OUTSIDE RECORDS SUMMARY | 2025-03-18 10:22 | XMS_ITS | Encounter Summary ---
Author Organization [employer] Address [address] [facility] 7t [place] [address] Care Team Providers Care Word Processing Specialist Name Role Phone Ayala Capps MD Primary Care Provider [phone] Reason for Visit * Reason Onset Date Comments Appointment 09/27/2022 Encounter Details Date Type Department Care Team ([facility] Contact Info) Description 09/27/2022 Telephone [facility] ADULT DENTAL [address] [place] [address] Laura Van, EDGAR [address] [place] [address] Appointment Social History Tobacco Use Types Packs/Day [...] the report to be sent to [facility] fax number [phone] please advise documented in this encounter Plan of Treatment Upcoming Encounters Date Type Department Care Team (Late st Contact Info) Description 04/05/2025 2:15 PM EDT Procedure Visit [facility] [address] [place], [place] [phone] Pretty Damian CNM [address] [place] [address] documented as of this encounter Visit Diagnoses Not on filedocumented in this encounter Care Teams Word Processing Specialist Relationship Specialty Start Date End Date Aylaa Capps MD [address] [place] [address] PCP - General Family Medicine 07/21/18 documented as of this encounter
--- OUTSIDE RECORDS SUMMARY | 2025-03-18 10:22 | XMS_ITS | Encounter Summary ---
Author Organization [employer] Address [address] [facility] 7t [place] [address] Care Team Providers Care Band Log Mill And Carriage Operator Name Role Phone Ayala Capps MD Primary Care Provider [phone] Reason for Visit * Reason Comments Med Refill Encounter Details Date Type Department Care Team (Late st Contact Info) Description 08/24/2022 Refill [facility] [address] [place] [address] Ayala Capps MD [address] [place] [address] Arthritis (Primary Dx) Social History Tobacco Use [...] Description 04/05/2025 2:15 PM EDT Procedure Visit [facility] [address] [place] [address] Pretty Damian CNM [address] [place] [address] documented as of this encounter Visit Diagnoses Diagnosis Arthritis- Primary Unspecified arthropathy, site unspecified documented in this encounter Care Teams Band Log Mill And Carriage Operator Relationship Specialty Start Date End Date Ayala Capps MD [address] [place] [address] PCP - General Family Medicine 07/21/18 documented as of this encounter
--- OUTSIDE RECORDS SUMMARY | 2025-03-18 10:22 | XMS_ITS | Encounter Summary ---
Author Organization [employer] Address [address] [place] [address] [address] [place] [address] Care Team Providers Care Railroad Emergency Services Manager Name Role Phone Ayala Capps MD Primary Care Provider [phone] Encounter Details Date Type Department Care Team (Late Contact Info) Description 02/06/2023 Orders Only [facility] MED & PEDS [address] [place], [place] [phone] Ayala Capps MD [address] [place] [address] Social History Tobacco Use Types Packs/Day Years [...] Description 04/05/2025 2:15 PM EDT Procedure Visit [facility] [address] [place] [address] Pretty Damian CNM [address] [place] [address] documented as of this encounter Visit Diagnoses Not on filedocumented in this encounter Care Teams Railroad Emergency Services Manager Relationship Specialty Start Date End Date Ayala Capps MD [address] [place] [address] PCP - General Family Medicine 07/21/18 documented as of this encounter
--- OUTSIDE RECORDS SUMMARY | 2025-03-18 10:22 | XMS_ITS | Clinical Summary ---
Author Organization [employer] Address [address] [facility] 7[address] [place] [address] Care Team Providers Care Digital Media Director Name Role Phone Ayala Capps MD Primary Care Provider [phone] Allergies Active Allergy Reactions Criticality Noted Date Comments Meloxicam 03/08/2025 Medications albuterol (Ventolin HFA) 108 (90 Base) MCG/ACT inhalerIndicati ons:Allergic rhinitis due to other allergic trigger, unspecified seasonality,Age -related osteoporosis without current pathological fracture INHALE 2 PUFFS BY MOUTH EVERY 4 HOURS NEEDED 18 g 1 08/12/19 24 Active diclofenac (Cataflam) 50 MG tablet TAKE 1 TABLET (50 MG) BY MOUTH IF NEEDED IN THE MORNING, AT NOON, AND AT BEDTIME FOR PAIN 60 tablet 12/17/19 24 Active cholecalciferol VITAMIN D (Vitamin D-3) 50 MCG (1999 UT) capsule TAKE 1 CAPSULE BY MOUTH TWICE A DAY 180 capsule 3 02/04/20 24 Active lidocaine-prilo mario (Emla) 2.5-2.5 % cream APPLY BY TOPICAL ROUTE EVERY DAY NEEDED. 60 g 3 07/07/20 24 Active Diclofenac Sodium 1 % gel Apply daily to affected areas as needed for pain 100 g 3 08/19/19 25 Active lidocaine (LMX) 4 % cream Apply topically if needed in the morning, at noon, in the evening, and at bedtime for mild pain. 60 g 3 08/20/19 25 026 Active alendronate (Fosamax) 70 MG tabletIndicatio ns:Allergic rhinitis due to other allergic trigger, unspecified seasonality,Age -related osteoporosis without current pathological fracture TAKE 1 TABLET BY MOUTH ONE TIME PER WEEK 12 tablet 02/15/20 25 Active levocetirizine (Xyzal) 5 MG tablet TAKE 1 TABLET BY MOUTH EVERY EVENING 90 tablet 3 03/07/20 25 Active bacitracin-poly myxin b (Polysporin) ointment Apply topically 2 times daily. 15 g 1 03/18/20 25 Active SUMAtriptan (Imitrex) 100 MG tablet Take 1 tablet orally at onset of migraine,rep eat in 2 hours if needed only 10 tablet 5 03/18/20 25 Active levocetirizine (Xyzal) 5 MG tablet Take 1 tablet (5 mg) by mouth in the evening. 30 tablet 11 12/08/19 24 025 Discontinued rosuvastatin (Crestor) 10 MG tablet Take 1 tablet (10 mg) by mouth Once per day. 90 tablet 3 08/19/19 25 025 Discontinued(Si de effects) SUMAtriptan (Imitrex) 100 MG tablet Take 1 tablet orally at onset of migraine,rep eat in 2 hours if needed only 10 tablet 5 08/19/19 25 025 Discontinued(Re order (will not trigger notification to Pharmacy)) meloxicam (Mobic) 7.5 MG tablet Take 1 tablet (7.5 mg) by mouth Once per day. 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 Send diclofenac. Consider referral to PT if symptoms persist. Hypercholesterolemia 04/14/2018 Allergic rhinitis 11/09/2012 Polyp of colon 11/09/2012 Encounters Date Type Department Care Team Description 03/18/2025 9:00 AM EDT Office Visit [facility] [address] [place] [address] Ayala Capps MD Hypercholesterolemia (Primary Dx); Seasonal allergic rhinitis, unspecified trigger; Polyp of colon, unspecified part of colon, unspecified type 03/18/2025 Travel 03/17/2025 Telephone [facility] [address] [place] [address] Ayala Capps MD Chart Prep 03/17/2025 Travel 03/08/2025 9:00 AM EDT Office Visit [facility] [address] [place] [address] Alyssa Gann 03/05/2025 Refill [facility] [address] [place] [address] Ayala Capps MD 03/03/2025 Results Follow-Up [facility] [address] [place] [address] Ayala Capps MD BI Mammogram Screen w/ Florencio w/ Implants Luis 03/01/2025 Travel 02/28/2025 Telephone [facility] [address] [place] [address] [place], [place] 02/18/2025 2:30 PM EDT Office Visit [facility] [address] [place] [address] Laura Van DDS 02/17/2025 Orders Only [facility] [address] [place] [address] Cecilia Tolbert MD 02/13/2025 Refill [facility] [address] [place] [address] Ayala Capps MD Allergic rhinitis due to other allergic trigger, unspecified seasonality; Age-related osteoporosis without current pathological fracture 01/28/2025 2:00 PM EDT Office Visit [facility] [address] [place] [address] Marquita Lua MD Right hip pain (Primary Dx) 01/28/2025 Travel 01/27/2025 Telephone [facility] [address] [place] [address] Ayala Capps MD Appointment Request 01/27/2025 Telephone [facility] [address] [place], [place] [id number] Ayala Capps MD Nurse Triage 12/21/2024 Telephone [facility] [address] [place] [address] Ayala Capps MD from Last 3 Months Immunizations Immunization Administration Dates Next Due Hep B, adult 11/01/2019,08/16/2019,07/08/2019 Influenza High-dose Quadriva lent Preservative Free 05/17/2022,06/19/2020 Influenza Quadrivalent Adjuvanted 05/18/2021 Influenza, IIV3, injectable 06/04/2018 Influenza, seasonal, injecta ble, preservative free 08/19/2024 Moderna Covid-19 Vaccine 6+ Bivalent 05/17/2022 Pneumococcal Conjugate PCV 13 09/15/2018 Tdap 12/20/2015 [...] 16 03/18/2025 8:58 AM EDT Oxygen Saturation 97% 08/19/2024 9:39 AM EST Inhaled Oxygen Concentration - - Weight 59.4 kg (131 lb) 03/18/2025 8:58 AM EDT Height 159.4 cm (5' 2.75 ) 01/28/2025 2:03 PM ED T Body Mass Index 23.39 01/28/2025 2:03 PM EDT Plan of Treatment Upcoming Encounters Date Type Department Care Team (Late st Contact Info) Description 04/05/2025 2:15 PM EDT Procedure Visit [facility] [address] [place] [address] Pretty Damian CNM [address] [place] [address] Health Maintenance Due Date Last Done Comments CT Colonography 1950 FIT DNA/Cologuard 1950 FIT 1950 FOBT 1950 Sigmoidoscopy 1950 Hepatitis C Screening 1970 RSV Patients and Patients Aged 60 years or older (1 - Risk 60-74 years 1-dose series) 2012 Pneumococcal Vaccine: 50+ Years (2 of 2 - PPSV23) 11/10/2018 09/15/2018 Zoster Vaccines (3 of 3) 02/17/2019 12/23/2018, 04/21 COVID-19 Vaccine ( season) 2024 05/17/2022, 05/18/2021, 11/02/2020, Additional history exists Dental X-Ray: Full Mouth 01/10/2025 01/09/2022 Influenza Vaccine (#1) 2025 , 05/17/2022, 05/18/2021, Additional history exists Dental Oral Exam 03/25/2025 09/21/2024, 01/09/2022 Alcohol/Substance Use Screening 08/19/2025 08/19/2024 Depression Screening 08/19/2025 08/19/2024, 08/19/19 SDOH Screening 08/19/2025 08/19/2024 Dental X-Ray: Bitewings 09/03/2025 09/02/19, 03/04/2023, 09/16/2022, Additional history exists Dental Prophylaxis 09/09/2025 03/08/2025, 0 09/02/2024, 02/04/2024, Additional history exists DTaP/Tdap/Td Vaccines (2 - Td or Tdap) 12/19/2025 12/20/2015 Tobacco Screening 03/18/2026 03/18/2025 Mammogram 02/17/2027 02/17/2025, 07/0 09/2023, 01/10/2023, Additional history exists Colonoscopy 12/18/2033 12/19/2023, 05/3 07/2023, 09/04/2018 Colorectal Cancer Screening 12/18/2033 Hepatitis B Vaccines Completed 11/01/2019, 08/16/2019, 07/08/2019 HIB Vaccines Aged Out No longer eligi ble based on patient's age to complete this topic HPV Vaccines Aged Out No longer eligi ble based on patient's age to complete this topic Hepatitis A Vaccines Aged Out No long er eligible based on patient's age to complete this topic IPV Vaccines Aged Out No longer eligi ble based on patient's age to complete this topic Meningococcal B Vaccine Aged Out No l onger eligible based on patient's age to complete [...] Procedure Name Priority Date/Time Associated Diagnosis Comments BI MAMMOGRAM DIAGNOSTIC TOMOSYNTHESIS ADDED VIEW RIGHT Routine 03/14/2025 7:55 AM EDT CASE PRESENTATION, DETAILED AND EXTENSIVE TREATMENT PLANNING Routine 03/08/2025 9:00 AM EDT PROPHYLAXIS - ADULT Routine 03/08/2025 9 :00 AM EDT 10 I RESIN-BASED COMPOSITE - 1 SURF, ANTERIOR Routine 02/18/2025 2:30 PM EDT CASE PRESENTATION, DETAILED AND EXTENSIVE TREATMENT PLANNING Routine 02/18/2025 2:30 PM EDT BI MAMMOGRAM SCREEN W FLORENCIO W IMPLANTS LUIS Routine 02/17/2025 2:50 PM EDT PERIODIC ORAL EVALUATION - ESTABLISHED PATIENT Routine 09/21/2024 9:00 AM EST BITEWINGS - 2 RADIOGRAPHIC IMAGES Routine 09/02/2024 9:00 AM EST HM COLONOSCOPY Routine 12/19/2023 from Last 3 Months or Most Recently Relevant to Health Maintenance Results * BI Mammogram Diagnostic Tomosynthesis added right (03/14/2025 7:55 AM EDT) Anatomical Region Laterality Modality Breast Left Mammography 03/14/2025 7:55 AM EDT Narrative 03/14/2025 8:42 AM EDT [facility] [address] [place], [place] [id number] Mammography Report Signed Patient: Ilda Taylor MR#: [id number] 01 : 1950 Acct:[id number] Age/Sex: 74 / F ADM Date: 03/14/25 Loc: HO.MAMMO Attending Dr: Cecilia Tolbert MD Ordering Physician: Cecilia Tolbert MD Results: 1Nega tive Date of Service: 03/14/25 Follow Up: 1 Year From Orig inal Mammogram Procedure(s): MM tomosynthesis added views R Accession Number(s): [id number] cc: Cecilia Tolbert MD EXAMINATION: MM DIAGNOSTIC DIGITAL BREAST TOMOSYNTHESIS, RIGHT CLINICAL INFORMATION: Callback from screening for right breast asymmetry in the superior breast anterior depth seen on MLO view. COMPARISON: Comparison made to multiple prior, most recent February 17, 2025, and most remote November 23, 2018. TECHNIQUE: Digital breast tomosynthesis is performed in full-field ML 90 degrees along with computer-aided detection (CAD). Synthesized 2D images are generated from the tomosynthesis. Spot compression tomosynthesis images were also obtained. All images were obtained with implants displaced. FINDINGS: BREAST COMPOSITION: There are scattered areas of fibroglandular density (ACR BI-RADS breast composition Category b). RIGHT BREAST: Images were obtained with displaced implants. Previously suggested asymmetry in the superior breast anterior depth is pliable on today's images, and local parenchyma has similar appearance to multiple prior studies as far back as 2018, likely representing overlapping fibroglandular breast tissue. MM/MM tomosynthesis added views R IMPRESSION: RIGHT BREAST: Negative, no mammographic evidence of malignancy. Normal interval follow-up is recommended in 12 months. ASSESSMENT: BI-RADS 1 - Negative RECOMMENDATION: 1 year F/U Results were provided to the patient at time of visit by the technologist. This patient's information was entered into a reminder system with a target due date for their next mammogram. Electronically signed by: Luz Marina Martinez MD 03/14/2025 08:40 AM EDT Dictated By: Luz Marina Martinez MD Signed By: <Electronically signed by Luz Marina Martinez MD in OV> 03/14/25 0840 DD/ 0755 TD/TT: 03/14/25 0820 Imaging Administrator: Procedure Note Donotuseinterpreter, Image - 03/14/2025 [place] [facility] [address] [place], [place] [address] Mammography Report Signed Patient: Ilda Taylor AMR#: [id number] 01 : 1950cct:[id number] Age/Sex: 74 / FADM Date: 03/14/25 Loc: HO.MAMMO Attending Dr: Cecilia Tolbert MD Ordering Physician: Cecilia Tolbert MDResults: 1Nega tive Date of Service: 03/14/25Follow Up: 1 Year From Orig inal Mammogram Procedure(s): MM tomosynthesis added views R Accession Number(s): [id number] cc: Cecilia Tolbert MD EXAMINATION: MM DIAGNOSTIC DIGITAL BREAST TOMOSYNTHESIS, RIGHT CLINICAL INFORMATION: Callback from screening for right breast asymmetry in the superior breast anterior depth seen on MLO view. COMPARISON: Comparison made to multiple prior, most recent February 17, 2025, and most remote November 23, 2018. TECHNIQUE: Digital breast tomosynthesis is performed in full-field ML 90 degrees along with computer-aided detection (CAD). Synthesized 2D images are generated from the tomosynthesis. Spot compression tomosynthesis images were also obtained. All images were obtained with implants displaced. FINDINGS: BREAST COMPOSITION: There are scattered areas of fibroglandular density (ACR BI-RADS breast composition Category b). RIGHT BREAST: Images were obtained with displaced implants. Previously suggested asymmetry in the superior breast anterior depth is pliable on today's images, and local parenchyma has similar appearance to multiple prior studies as far back as 2018, likely representing overlapping fibroglandular breast tissue. MM/MM tomosynthesis added views R IMPRESSION: RIGHT BREAST: Negative, no mammographic evidence of malignancy. Normal interval follow-up is recommended in 12 months. ASSESSMENT: BI-RADS 1 - Negative RECOMMENDATION: 1 year F/U Results were provided to the patient at time of visit by the technologist. This patient's information was entered into a reminder system with a target due date for their next mammogram. Electronically signed by: Luz Marina Martinez MD 03/14/2025 08:40 AM EDT Dictated By: Luz Marina Martinez MD Signed By: <Electronically signed by Luz Marina Martinez MD in OV> 03/14/25 0840 DD/ 0755 TD/TT: 03/14/25 0820 Imaging Administrator: Cecilia Tolbert MD IMG BI PROCEDURES Final Resul t * BI Mammogram Screen w/ Florencio w/ Implants Luis (02/17/2025 2:50 PM EDT) Anatomical Region Laterality Modality Mammography 02/17/2025 2:50 PM EDT Narrative 03/01/2025 9:12 AM EDT [facility] [address] [place] [address] Mammography Report Signed Patient: Ilda Taylor MR#: [id number] 01 : 1950 Acct:[id number] Age/Sex: 74 / F ADM Date: 02/17/25 Loc: HO.MAMMO Attending Dr: Cecilia Tolbert MD Ordering Physician: Cecilia Tolbert MD Results: 0Inco mplete: Needs Additional Imaging Evaluation Date of Service: 02/17/25 Follow Up: Additional Imagi ng Procedure(s): MM tomosynthesis screen imp BI Accession Number(s): [id number] cc: Ayala Capps MD; Cecilia Tolbert MD EXAMINATION: MM SCREENING DIGITAL BREAST TOMOSYNTHESIS, BILATERAL CLINICAL INFORMATION: Screening. Asymptomatic. COMPARISON: Mammography: Comparison is made with relevant avialable priors. TECHNIQUE: Digital mammography is performed in craniocaudal and mediolateral oblique views along with computer-aided detection (CAD). Digital breast tomosynthesis is performed in implant-displaced craniocaudal and implant-displaced mediolateral oblique views along with computer-aided detection (CAD). FINDINGS: There are scattered areas of fibroglandular density (ACR BI-RADS breast composition Category b). Bilateral prepectoral calcified implants are distorted but stable appearing. Left: There are no significant masses, abnormal calcifications, or other abnormalities. Right: Asymmetry superior breast anterior depth on MLO view. No suspicious calcifications or other abnormal findings. MM/MM tomosynthesis screen imp BI IMPRESSION: Additional imaging recommended. ASSESSMENT: BI-RADS BI-RADS 0 - Incomplete: Needs additional Imaging. RECOMMENDATION: 1. Additional views of the right breast 2. Targeted ultrasound if warranted after review of the additional views. 3. Radiology department staff will contact the patient for additional imaging. Additional Imaging required This patient's information was entered into a reminder system with a target due date for their next mammogram. Electronically signed by: Jemima Polanco DO 03/01/2025 09:09 AM EDT RP Dictated By: Jemima Polanco DO Signed By: <Electronically signed by Jemima Polanco DO in OV> 03/01/25 0909 DD/ 1450 TD/TT: 02/17/25 1518 Imaging Administrator: Procedure Note Donotuseinterpreter, Image - 03/01/2025 [facility] [address] [place] [address] Mammography Report Signed Patient: Ilda Taylor AMR#: [id number] 01 : 1950cct:[id number] Age/Sex: 74 / FADM Date: 02/17/25 Loc: HO.MAMMO Attending Dr: Cecilia Tolbert MD Ordering Physician: Cecilia Tolbert MDResults: 0Inco mplete: Needs Additional Imaging Evaluation Date of Service: 02/17/25Follow Up: Additional Imagi ng Procedure(s): MM tomosynthesis screen imp BI Accession Number(s): [id number] cc: Ayala Capps MD; Cecilia Tolbert MD EXAMINATION: MM SCREENING DIGITAL BREAST TOMOSYNTHESIS, BILATERAL CLINICAL INFORMATION: Screening. Asymptomatic. COMPARISON: Mammography: Comparison is made with relevant avialable priors. TECHNIQUE: Digital mammography is performed in craniocaudal and mediolateral oblique views along with computer-aided detection (CAD). Digital breast tomosynthesis is performed in implant-displaced craniocaudal and implant-displaced mediolateral oblique views along with computer-aided detection (CAD). FINDINGS: There are scattered areas of fibroglandular density (ACR BI-RADS breast composition Category b). Bilateral prepectoral calcified implants are distorted but stable appearing. Left: There are no significant masses, abnormal calcifications, or other abnormalities. Right: Asymmetry superior breast anterior depth on MLO view. No suspicious calcifications or other abnormal findings. MM/MM tomosynthesis screen imp BI IMPRESSION: Additional imaging recommended. ASSESSMENT: BI-RADS BI-RADS 0 - Incomplete: Needs additional Imaging. RECOMMENDATION: 1. Additional views of the right breast 2. Targeted ultrasound if warranted after review of the additional views. 3. Radiology department staff will contact the patient for additional imaging. Additional Imaging required This patient's information was entered into a reminder system with a target due date for their next mammogram. Electronically signed by: Jemima Polanco DO 03/01/2025 09:09 AM EDT Dictated By: Jemima Polanco DO Signed By: <Electronically signed by Jemima Polanco DO in OV> 03/01/25 0909 DD/ 1450 TD/TT: 02/17/25 1518 Imaging Administrator: us Cecilia Tolbert MD IMG BI PROCEDURES Edited Resu lt - Final * Hm Colonoscopy (12/19/2023) Colonoscopy Normal Normal us Ayala Capps MD HEALTH MAINTENANCE Final Resu lt from Last 3 Months or Most Recently Relevant to Health Maintenance Insurance # 2R [place] [id number] [facility] F[facility] [address] [place] [id number] DENTAL - HSN FULL (MEDICAID) Care Teams Digital Media Director Relationship Specialty Start Date End Date Ayala Capps MD [address] [place] [id number] PCP - General Family Medicine 07/21/18
[2025-03-18 15:02] LABS: Cholesterol 300 mg/dL (<200); HDL Cholesterol 87 mg/dL (>40); Triglycerides 99 mg/dL (<150)
== END 2025-03-18 09:35 | disposition home or self-care (01) ==
LOC: HO.CHCLDS 09:34
PROVIDERS: Visit Provider Pediatrics
DX: E78.00 Pure hypercholesterolemia, unspecified (principal)
CPT/HCPCS: 36415; 80061

== ENCOUNTER 2025-04-06 11:40 | Outpatient (REF) | payer MEDICARE, SELFPAY ==
--- OUTSIDE RECORDS SUMMARY | 2023-12-19 07:20 | XMS_ITS ---
Author Organization [facility] Address [address] [place] [id number] Care Team Providers Care Acute Care Assistant Name Role Phone Jefry SMITH, Ayala Primary Care Provider Dominick Teixeira Jr REASON FOR VISIT screening, fam hx colon ca Encounters Encounter Location Date Provider Diagnosis [facility] [place] [facility] [address] [place] [id number] 12/19/2023 Dominick Vargas Jr Encounter for screening colonoscopy Z12.11 and Colon polyps K63.5 Assessments Encounter Date Diagnosis (ICD Code) Assessment Notes Treatment Notes Treatment Clinical Notes Section Notes 12/19/2023 Encounter for screening colonoscopy (ICD-10 - Z12.11) 12/19/2023 Colon polyps (ICD-10 - K63.5) Plan Of Treatment No Information Progress Notes * JULIANNA RODRIGUEZ ADOB: 3 (74 yo F)Acc No.[id number]:12/19/2023 COLON WITH MAC Patient: JULIANNA JORGENSEN Provider: Erick Vargas MD :1950 A ge:73 Y S ex:Female Date:12/19/2023 Address:[address] [place] [address], [id number] Pcp:Ayala Capps MD Subjective: * Chief Complaints: [...] 12/19/2023 Generated for Michael mckeon/Gloria/Rosendaitting on: 0 04/18/2025 01:27 PM EDT
--- OUTSIDE RECORDS SUMMARY | 2025-04-18 13:27 | XMS_ITS | Encounter Summary ---
Author Organization [employer] Address [address] [facility] [address] [place] [address] Care Team Providers Care Cherry Sorter Name Role Phone Ayala Capps MD Primary Care Provider [phone] Encounter Details Date Type Department Care Team ([facility] Contact Info) Description 04/11/2025 Results Follow-Up [facility] [address] [place] [address] Pretty Damian CN [address] [place] [address] Pap Smear Social History Tobacco Use Types Packs/Day Years [...] documented as of this encounter Care Teams Cherry Sorter Relationship Specialty Start Date End Date Ayala Capps MD [address] [place] [address] PCP - General Family Medicine 07/21/18 documented as of this encounter
--- OUTSIDE RECORDS SUMMARY | 2025-04-18 13:27 | XMS_ITS | Encounter Summary ---
Author Organization [employer] Address [address] [facility] [address] [place] [address] Care Team Providers Care Safety Coordinator Name Role Phone Ayala Capps MD Primary Care Provider [phone] Encounter Details Date Type Department Care Team ([facility] Contact Info) Description 02/06/2023 Orders Only [facility] [address] [place] [address] Ayala Capps MD [address] [place], [place] [id number] Social History Tobacco Use Types Packs/Day Years [...] on filedocumented in this encounter Care Teams Safety Coordinator Relationship Specialty Start Date End Date Ayala Capps MD [address] [place] [address] PCP - General Family Medicine 07/21/18 documented as of this encounter
--- OUTSIDE RECORDS SUMMARY | 2025-04-18 13:27 | XMS_ITS | Encounter Summary ---
Author Organization [employer] Address [address] [facility] 7t [place] [address] Care Team Providers Care Drier And Evaporator Operator Name Role Phone Ayala Capps MD Primary Care Provider [phone] Encounter Details Date Type Department Care Team (Latest Contact Info) Description 12/01/2020 Abstract [facility] CONVERSIONS Dental, Provider, DDS Social History [...] on filedocumented in this encounter Care Teams Drier And Evaporator Operator Relationship Specialty Start Date End Date Ayala Capps MD [address] [facility] [place] [address] PCP - General Family Medicine 07/21/18 documented as of this encounter
--- OUTSIDE RECORDS SUMMARY | 2025-04-18 13:27 | XMS_ITS | Clinical Summary ---
Author Organization [employer] Address [address] [facility] 7t [place] [address] Care Team Providers Care Deep Fat Fry Cook Name Role Phone Ayala Capps MD Primary Care Provider [phone] Allergies Active Allergy Reactions Criticality Noted Date Comments Meloxicam 03/08/2025 Medications albuterol (Ventolin HFA) 108 (90 Base) MCG/ACT inhalerIndication s:Allergic rhinitis due to other allergic trigger, unspecified seasonality,Age-r elated osteoporosis without current pathological fracture INHALE 2 PUFFS BY MOUTH EVERY 4 HOURS NEEDED 18 g 1 4 Active diclofenac (Cataflam) 50 MG tablet TAKE 1 TABLET (50 MG) BY MOUTH IF NEEDED IN THE MORNING, AT NOON, AND AT BEDTIME FOR PAIN 60 tablet 4 Active cholecalciferol VITAMIN D (Vitamin D-3) 50 MCG (2000 UT) capsule TAKE 1 CAPSULE BY MOUTH TWICE A DAY 180 capsule 3 4 Active lidocaine-priloca ine (Emla) 2.5-2.5 % cream APPLY BY TOPICAL ROUTE EVERY DAY NEEDED. 60 g 3 4 Active Diclofenac Sodium 1 % gel Apply daily to affected areas as needed for pain 100 g 3 5 Active lidocaine (LMX) 4 % cream Apply topically if needed in the morning, at noon, in the evening, and at bedtime for mild pain. 60 g 3 5 08/20/19 26 Active alendronate (Fosamax) 70 MG tabletIndications :Allergic rhinitis due to other allergic trigger, unspecified seasonality,Age-r elated osteoporosis without current pathological fracture TAKE 1 TABLET BY MOUTH ONE TIME PER WEEK 12 tablet 5 Active levocetirizine (Xyzal) 5 MG tablet TAKE 1 TABLET BY MOUTH EVERY EVENING 90 tablet 3 5 Active bacitracin-polymy wili b (Polysporin) ointment Apply topically 2 times daily. 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 Send diclofenac. Consider referral to PT if symptoms persist. Hypercholesterolemia 04/14/2018 Allergic rhinitis 11/09/2012 Polyp of colon 11/09/2012 Encounters Date Type Department Care Team Description 04/11/2025 Results Follow-Up [facility] MEDICINE [address] [place] [address] Bj Cooper CNM Pap Smear 04/05/2025 2:15 PM EDT Procedure Visit [address] [address] Bj Cooper CNM Cervical cancer screening (Primary Dx); Cystocele, unspecified 04/05/2025 Orders Only [facility] MEDICINE [address] [place] [address] Bj Cooper CNM 04/05/2025 Travel 04/04/2025 Telephone [facility] MEDICINE [address] [place] [address] Bj Cooper CNM chart prep 03/29/2025 Travel 03/24/2025 Telephone [facility] CHC MED & PEDS [address] [place] [address] Ayala Capps MD 03/18/2025 9:00 AM EDT Office Visit [facility] [address] [place] [address] Ayala Capps MD Hypercholesterolemia (Primary Dx); Seasonal allergic rhinitis, unspecified trigger; Polyp of colon, unspecified part of colon, unspecified type 03/18/2025 Travel 03/17/2025 Telephone [facility] [address] [place] [address] Ayala Capps MD Chart Prep 03/17/2025 Travel 03/08/2025 9:00 AM EDT Office Visit [facility] D[facility] [address] [place] [address] Alyssa Gann 03/05/2025 Refill [facility] [address] [place] [address] Ayala Capps MD 03/03/2025 Results Follow-Up [facility] [address] [place] [address] Ayala Capps MD BI Mammogram Screen w/ Florencio w/ Implants Luis 03/01/2025 Travel 02/28/2025 Telephone [facility] WALK-IN CENTER [address] [place] [address] Yissel Chaudhari MA 02/18/2025 2:30 PM EDT Office Visit [facility] [address] [place] [address] Laura Van DDS 02/17/2025 Orders Only [facility] [address] [place] [address] Cecilia Tolbert MD 02/13/2025 Refill [facility] [address] [place] [address] Ayala Capps MD Allergic rhinitis due to other allergic trigger, unspecified seasonality; Age-related osteoporosis without current pathological fracture 01/28/2025 2:00 PM EDT Office Visit [facility] [address] [place] [address] Marquita Lua MD Right hip pain (Primary Dx) 01/28/2025 Travel 01/27/2025 Telephone [facility] [address] [place] [address] Ayala Capps MD Appointment Request 01/27/2025 Telephone [facility] [address] [place] [address] Ayala Capps MD Nurse Triage from Last 3 Months Immunizations Immunization Administration [...] Sign Reading Time Taken Comments Blood Pressure 120/76 04/05/2025 2:20 PM EDT Pulse 75 04/05/2025 2:20 PM EDT Temperature 36.6 C (97.8 F) 04/05/2025 2:20 PM EDT Respiratory Rate 14 04/05/2025 2:20 PM EDT Oxygen Saturation 96% 04/05/2025 2:20 PM EDT Inhaled Oxygen Concentration - - Weight 61.4 kg (135 lb 6.4 oz) 04/05/2025 2:20 P M EDT Height 159.4 cm (5' 2.75 ) 01/28/2025 2:03 PM ED T Body Mass Index 24.18 01/28/2025 2:03 PM EDT Plan of Treatment Health Maintenance Due Date Last Done Comments CT Colonography 1950 FIT DNA/Cologuard 1950 FIT 1950 FOBT 1950 Sigmoidoscopy 1950 Hepatitis C Screening 1970 RSV Patients and Patients Aged 60 years or older (1 - Risk 60-74 years 1-dose series) 2012 Pneumococcal Vaccine: 50+ Years (2 of 2 - PPSV23) 11/10/2018 09/15/2018 Zoster Vaccines (3 of 3) 02/17/2019 12/23/2018, 04/21 Dental X-Ray: Full Mouth 01/10/2025 01/09/2022 COVID-19 Vaccine ( season) 2025 05/17/2022, 05/18/2021, 11/02/2020, Additional history exists Influenza Vaccine (#1) 2025 , 05/17/2022, 05/18/2021, Additional history exists Dental Oral Exam 03/25/2025 09/21/2024, 01/09/2022 Alcohol/Substance Use Screening 08/19/2025 08/19/2024 Depression Screening 08/19/2025 08/19/2024, 08/19/19 SDOH Screening 08/19/2025 08/19/2024 Dental X-Ray: Bitewings 09/03/2025 09/02/19, 03/04/2023, 09/16/2022, Additional history exists Dental Prophylaxis 09/09/2025 03/08/2025, 0 09/02/2024, 02/04/2024, Additional history exists DTaP/Tdap/Td Vaccines (2 - Td or Tdap) 12/19/2025 12/20/2015 Tobacco Screening 04/05/2026 04/05/2025 Mammogram 02/17/2027 02/17/2025, 07/0 09/2023, 01/10/2023, Additional history exists HPV/Cotest 04/05/2028 04/05/2025, 09/0 12/2021, 02/13/2021, Additional history exists Pap Smear 04/05/2028 04/05/2025, 09/0 12/2021, 02/13/2021, Additional history exists Colonoscopy 12/18/2033 12/19/2023, 0507/2023, 09/04/2018 Colorectal Cancer Screening 12/18/2033 Hepatitis B [...] Procedure Name Priority Date/Time Associated Diagnosis Comments PAP SMEAR Routine 04/05/2025 12:00 AM EDT Cervical cancer screening HPV DNA, LOW/HIGH RISK Routine 12:00 AM EDT LIPID PANEL, STANDARD Routine 03/18/2025 9:35 AM EDT Hypercholesterolem ia BI MAMMOGRAM DIAGNOSTIC TOMOSYNTHESIS ADDED VIEW RIGHT [...] Recently Relevant to Health Maintenance Results * HPV DNA, Low/High Risk (04/05/2025 12:00 AM EDT) HPV High Risk Negative Negative [facility] HPV Genotype 16 Negative Negative [facility] HPV Genotype 18 Negative Negative [facility] Comment:HPV testing performe d at [facility] (CLIA#[id number]), [address] [place] [phone].Testing for HPV was performed using the Eliezer SUMMER 6800system. The presence of HPV in the female genital tract isassociated with a number of diseases, including cervicalcarcinoma. The HPV DNA high risk pool tests for HPV 31, 33,35, 39, 45, 51, 52, 56, 58, 59, 66 and 68. The testing forHPV 16 and 18 genotypes has also been performed. A positiveresult indicates detection of nucleic acid sequences fromone or more subtypes, whereas a negative result indicatessuch sequences were not detected. 04/05/2025 04/06/2025 11: 40 AM EDT us Bj Cooper [facility] BLOOD ORDERABLES Yoanna l Result [facility] [address] [place] [phone] * Pap Smear (04/05/2025 12:00 AM EDT) Swab Vaginal structure / Unknown 04/05/2025 04/06/2025 11:40 AM EDT Narrative [facility] - 04/11/2025 9:43 AM EDT ----- ------- Name: Ilda Taylor Age/Sex: 74/F : 1950 Unit#: [id number] Attend Dr: Re04/05/25 Status: PRE [facility] Disch: ----- ------- SPEC : [id number] RECD: 04/06/25-1140 STATUS: CORNELIO ROLDAN NUM: [id number] MISSY: 04/05/25-[address]: BJ COOPER CNM ENTERED: 04/06/25-1155 SP TYPE: Pap Smr OT DR: ORDERED: Pap Smear Interpretation Satisfactory for evaluation. Negative for intraepithelial lesion or malignancy. Atrophic. HPV High Risk: Negative HPV Genotyping 16: Negative HPV Genotyping 18: Negative Clinical Information LMP: Hysterectomy, Postmenopausal Previous PAP test: 2021, history of LONI 1, NIL, HPV negative Other history: Cervical cancer sceening Material Received ThinPrep-Vaginal/Cervical PAP Disclaimer As of May 12, 2024, the technical services to include automated prescreening performed by the ThinPrep Imaging System, PAP screening and HPV testing will be performed at [facility] (CLIA #[id number]), [address] [place] [address]. Testing for HPV was performed using the Eliezer SUMMER 6800 system. The presence of HPV in the female genital tract is associated with a number of diseases, including cervical carcinoma. The HPV DNA high risk pool tests for HPV 31, 33, 35, 39, 45, 51, 52, 56, 58, 59, 66 and 68. The testing for HPV 16 and 18 genotypes has also been performed. A positive result indicates detection of nucleic acid sequences from one or more subtypes, whereas a negative result indicates such sequences were not detected. All professional services are performed by [facility] ([address] [place] [id number]; ; CLIA #[id number]). The PAP Test is a screening procedure with the inherent possibility of both false negative and false positive results. Results should be interpreted in the context of historic and current clinical findings. Reliability of the PAP Test is enhanced by performing the test on a regular repetitive basis. CONTINUED ON NEXT PAGE ----- ------- Name: Ilda Taylor Age/Sex: 74/F : 1950 Unit#: [id number] Roselyn Dr: Re04/05/25 Status: PRE REF Location: [facility] Disch: ----- ------- SPEC : [id number] RECD: 04/06/25-1140 STATUS: CORNELIO MCKEONMaite NUM: [id number] MISSY: 04/05/25-[address]: BJ COOPER ENTERED: 04/06/25-1155 SP TYPE: Pap Ashley BEJARANO DR: ORDERED: Pap Smear ----- ------- Signed (signature on file) CARLOS A De Luna ([facility]) 04/11/25 0943 ----- ------- END OF REPORT Bj [facility] CYTOLOGY ORDERABLES F inal Result [facility] [address] [place] [phone] * (ABNORMAL) Lipid Panel, Standard (03/18/2025 9:35 AM EDT) Triglycerides 99 <150 mg/dL [facility] Comment:Desirable Triglyceri de: less than 150 mg/dLBorderline High Triglyceride 150-199 mg/dLHigh Triglyceride: 200-499 mg/dLVery High Triglyceride: greater than or equal to 5OO mg/dL Cholesterol 300(H) <200 mg/dL [facility] Comment:Desirable Cholestero l: less than 200 mg/dLBorderline High Cholesterol: 200-239 mg/dLHigh Cholesterol: greater than 239 mg/dL LDL Cholesterol Calculated 194(H) <100 mg/dL [facility] Comment:Desirable LDL: less than 100 mg/dLNear Optimal/Above Optimal LDL: 110- 129 mg/dLBorderline High LDL: 130-159 mg/dLHigh LDL: 160-189 mg/dLVery High LDL: greater than or equal to 190 mg/dL HDL Cholesterol 87 >40 mg/dL [facility] Comment:Desirable HDL: great er than 40 mg/dL Note: This HDL assay may give artificially low results in patients with liver disease. Blood Venous blood specimen / Unknown 03/18/2025 9:35 AM EDT 03/18/2025 2:28 PM EDT Ayala Capps MD LAB BLOOD ORDERABLES Final Re sult [facility] [address] [place] [address] [phone] * BI Mammogram Diagnostic Tomosynthesis added right (03/14/2025 7:55 AM EDT) Anatomical Region Laterality Modality Breast Left Mammography 03/14/2025 7:55 AM EDT Narrative 03/14/2025 8:42 AM EDT [facility] [address] [place], [place] [address] Mammography Report Signed Patient: Ilda Taylor MR#: [id number] [birth year] : 1950 Acct:[id number] Age/Sex: 74 / F ADM Date: 03/14/25 Loc: HO.MAMMO Attending Dr: Cecilia Tolbert MD Ordering Physician: Cecilia Tolbert MD Results: 1Nega tive Date of Service: 03/14/25 Follow Up: 1 Year From Orig ina Mammogram Procedure(s): MM tomosynthesis added views R Accession Number(s): [id number] cc: Cecilia Tolbert MD EXAMINATION: MM DIAGNOSTIC [...] 03/14/25 0840 DD/ 0755 TD/TT: 03/14/25 0820 Stitching Machine Setter: Procedure Note Donotuseinterpreter, Image - 03/14/2025 [facility] [address] [place] [address] Mammography Report Signed Patient: Ilda Taylor AMR#: [id number] 01 : 1950cct:[id number] Age/Sex: 74 / FADM Date: 03/14/25 Loc: HO.MAMMO Attending Dr: Cecilia Tolbert MD Ordering Physician: Cecilia Tolbert MDResults: 1Nega tive Date of Service: 03/14/25Follow Up: 1 Year From Orig inal Mammogram Procedure(s): MM tomosynthesis added views R Accession Number(s): [id number] cc: Cecilia Tolbert MD EXAMINATION: MM DIAGNOSTIC [...] multiple prior studies as far back as 2019, likely representing overlapping fibroglandular breast tissue. MM/MM [...] 03/14/25 0840 DD/ 0755 TD/TT: 03/14/25 0820 Stitching Machine Setter: us Cecilia Tolbert MD IMG BI PROCEDURES Final Resul t * BI Mammogram Screen w/ Florencio w/ Implants Luis (02/17/2025 2:50 PM EDT) Anatomical Region Laterality Modality Mammography 02/17/2025 2:50 PM EDT Narrative 03/01/2025 9:12 AM EDT [facility] [address] [place] [address] Mammography Report Signed Patient: Ilda Taylor MR#: [id number] 01 : 1950 Acct:[id number] Age/Sex: 74 / F ADM Date: 02/17/25 Loc: SB Attending Dr: Cecilia Tolbert MD Ordering Physician: Cecilia Tolbert MD Results: 0Inco mplete: Needs Additional Imaging Evaluation Date of Service: 02/17/25 Follow Up: Additional Imagi ng Procedure(s): MM tomosynthesis screen imp BI Accession Number(s): [id number] cc: Ayala Capps MD; Cecilia Tolbert MD [...] 03/01/25 0909 DD/ 1450 TD/TT: 02/17/25 1518 Stitching Machine Setter: Procedure Note Donotuseinterpreter, Image - 03/01/2025 [facility] [address] [place] [address] Mammography Report Signed Patient: Ilda Taylor AMR#: [id number] 01 : 3Acct:[id number] Age/Sex: 74 / FADM Date: 02/17/25 Loc: HO.MAMMO Attending Dr: Cecilia Tolbert MD Ordering Physician: Cecilia Tolbert MDResults: 0Inco mplete: Needs Additional Imaging Evaluation Date of Service: 02/17/25Follow Up: Additional Imagi ng Procedure(s): MM tomosynthesis screen imp BI Accession Number(s): [id number] cc: Ayala Capps MD; Cecilia Tolbert MD [...] 03/01/25 0909 DD/ 1450 TD/TT: 02/17/25 1518 Stitching Machine Setter: us Cecilia Tolbert MD G BI PROCEDURES Edited Resu lt - Final * Hm Colonoscopy (12/19/2023) Colonoscopy Normal Normal us Ayala Capps MD HEALTH MAINTENANCE Final Resu lt from Last 3 Months or Most Recently Relevant to Health Maintenance Insurance [address] [place] [address] [facility] , [facility] [address] [place] [address] [address] [place] [address] DENTAL - HSN FULL (MEDICAID) [address] [place] [address] [address] [place] [address] Care Teams Deep Fat Fry Cook Relationship Specialty Start Date End Date Ayala Capps MD [address] [place] [address] PCP - General Family Medicine 07/21/18
--- OUTSIDE RECORDS SUMMARY | 2025-04-18 13:27 | XMS_ITS | Encounter Summary ---
Author Organization [employer] Address [address] [place] [address] 7t [place] [address] Care Team Providers Care Research Investigator Name Role Phone Ayala Capps MD Primary Care Provider [phone] Reason for Visit * Reason Comments Med Change Request Encounter Details Date Type Department Care Team ([facility] Contact Info) Description 02/20/2023 Refill [facility] CH[facility] MED & PEDS [address] [place] [address] Cecilia Tolbert MD [address] [place] [address] Social History Tobacco Use Types Packs/Day Years [...] on filedocumented in this encounter Care Teams Research Investigator Relationship Specialty Start Date End Date Ayala Capps MD [address] [place] [address] PCP - General Family Medicine 07/21/18 documented as of this encounter
--- OUTSIDE RECORDS SUMMARY | 2025-04-18 13:27 | XMS_ITS | Encounter Summary ---
Author Organization [employer] Address [address] [facility] 7 [place] [address] Care Team Providers Care Edge Beader Name Role Phone Ayala Capps MD Primary Care Provider [phone] Reason for Visit * Reason Comments Med Refill Encounter Details Date Type Department Care Team ([facility] st Contact Info) Description 08/24/2022 Refill [facility] MED[facility]INE [address] [place] [address] Ayala Capps MD [address] [place], [place] [phone] Arthritis (Primary Dx) Social History Tobacco Use [...] unspecified documented in this encounter Care Teams Edge Beader Relationship Specialty Start Date End Date Ayala Capps MD [address] [place], [place] [phone] PCP - General Family Medicine 07/21/18 documented as of this encounter
--- OUTSIDE RECORDS SUMMARY | 2025-04-18 13:27 | XMS_ITS | Encounter Summary ---
Author Organization [employer] Address 75 [facility] 7t [place] [address] Care Team Providers Care Supervisor Food Checkers And Cashiers Name Role Phone Ayala Capps MD Primary Care Provider [phone] Encounter Details Date Type Department Care Team (Latest Contact Info) Description 01/14/2022 Abstract [facility] CONVERSIONS Dental, Provider, DDS Social History [...] on filedocumented in this encounter Care Teams Supervisor Food Checkers And Cashiers Relationship Specialty Start Date End Date Ayala Capps MD [address] [facility] [place] [address] PCP - General Family Medicine 07/21/18 documented as of this encounter
--- OUTSIDE RECORDS SUMMARY | 2025-04-18 13:27 | XMS_ITS | Encounter Summary ---
Author Organization [employer] Address [address] [facility] [address]t [place] [address] Care Team Providers Care Resident Care Aid Name Role Phone Ayala Capps MD Primary Care Provider [phone] Encounter Details Date Type Department Care Team (Latest Contact Info) Description 08/16/2019 Abstract [facility] CONVERSIONS Dental, Provider, DDS Social History [...] on filedocumented in this encounter Care Teams Resident Care Aid Relationship Specialty Start Date End Date Ayala Capps MD [address] [facility] [place] [address] PCP - General Family Medicine 07/21/18 documented as of this encounter
--- OUTSIDE RECORDS SUMMARY | 2025-04-18 13:27 | XMS_ITS | Encounter Summary ---
Author Organization [employer] Address [address] [facility] 7t [place] [address] Care Team Providers Care Hris Administrator Name Role Phone Ayala Capps MD Primary Care Provider [phone] Encounter Details Date Type Department Care Team ([facility] Contact Info) Description 05/26/2023 Abstract [facility] MEDICINE [address] [place] [address] Ayala Capps MD [address] [facility] [place] [address] Social History Tobacco Use Types Packs/Day Years [...] on filedocumented in this encounter Care Teams Hris Administrator Relationship Specialty Start Date End Date Ayala Capps MD [address] [place] [address] PCP - General Family Medicine 07/21/18 documented as of this encounter
--- OUTSIDE RECORDS SUMMARY | 2025-04-18 13:27 | XMS_ITS | Encounter Summary ---
Author Organization [employer] Address 75 [facility] 7t [place] [address] Care Team Providers Care Chief Quality Officer Name Role Phone Ayala Capps MD Primary Care Provider [phone] Reason for Visit * Reason Onset Date Comments Appointment 09/27/2022 Encounter Details Date Type Department Care Team ([facility] Contact Info) Description 09/27/2022 Telephone [facility] CH[facility] ADULT DENTAL [address] [place] [address] Laura Van, EDGAR [address] [place] [address] Appointment Social History Tobacco Use Types Packs/Day [...] the report to be sent to [facility] fax number [phone] please advise documented in this encounter Plan of Treatment Not on file documented as of this encounter Visit Diagnoses Not on filedocumented in this encounter Care Teams Chief Quality Officer Relationship Specialty Start Date End Date Ayala Capps MD [address] [place] [address] PCP - General Family Medicine 07/21/18 documented as of this encounter
--- OUTSIDE RECORDS SUMMARY | 2025-04-18 13:27 | XMS_ITS | Patient Health Record ---
Author Organization [facility] Address [address] [place] [phone] Care Team Providers Care Case Management Rn Name Role Phone Jefry SMITH, Ayala Primary [...] Problem Status W/U Status Risk Notes Problem 647076045 Colon cancer screening (Z12.11) Active confirmed Problem [id number] nursing home (current) use of aspirin (Z79.82) Active confirmed Problem 591134204 FH: colon cancer (Z80.0) Active confirmed Problem 45111863 Change in bowel movement (R19.8) Active confirmed Plan Of Treatment Pending Test Test Name Order Date OVA & PARASITES (O&P) 11/24/2023 STOOL WBC 11/24/2023 GI PANEL 11/24/2023 Future Test Test Name Order Date COLONOSCOPY 06/04/2018 COLONOSCOPY 11/24/2023 Insurance Providers Payer Name Payer Address Payer Phone Subscriber Number Group Number Insured Name Patient Relationship to Insured Coverage Start Date Coverage End Date [facility] [address] Attn Claims LORETTA Fernandez [id number] JULIANNA RODRIGUEZ Self - patient is the insured Medical (General) History Medical History History ICD Code asthma/seasonal elevated cholesterol Surgical History Surgery Date(Month/Year) hysterectomy 2015 Bladder sling 2015 breast augmentation 1995 tubal ligation 1991 left knee replacement 08/12/23
== END 2025-04-06 11:41 | disposition home or self-care (01) ==
LOC: HO.LNP 11:40
PROVIDERS: Visit Provider Advanced Practice Midwife
DX: Z12.4 Encounter for screening for malignant neoplasm of cervix (principal)
CPT/HCPCS: 87626; 88175

== ENCOUNTER 2025-07-08 10:00 | Outpatient (RCR) | payer MEDICARE, SELFPAY | END 2025-07-08 16:48 | disposition home or self-care (01) | LOC: HO.WCC 10:00 | PROVIDERS: PCP Pediatrics; Visit Provider Surgery Vascular Surgery | DX: L97.812 Non-pressure chronic ulcer of other part of right lower leg with fat layer exposed (principal); Z87.891 Personal history of nicotine dependence; Z79.899 Other long term (current) drug therapy | CPT/HCPCS: 11042; 97597; 99212; 99213 ==